=== PATIENT | male | born 1955 | race Caucasian/White ===

== ENCOUNTER 2016-12-05 08:22 | Inpatient (IN) | payer BC ==
[2016-12-05] MEDS ORDERED: SODIUM CHLORIDE 0.9% 500 ML IV STA (08:28)
[2016-12-05] MEDS ORDERED: ALBUTEROL NEBULIZED 15 MG, IPRATROPIUM NEBULIZED 0.5 MG INHALATION ONE ×2 (08:29)
[2016-12-05] MEDS ORDERED: LORazepam 2 MG/ML SYRINGE IV STA (08:29)
--- NOTE | 2016-12-05 08:32 | ED ---
General Adult HPI - General Stated complaint: EVIE Time Seen by Provider: 12/05/16 08:22 Source: RN notes reviewed - History of Present Illness Initial comments: This is a 61-year-old male who presents emergency department with past history significant for COPD per patient states she continues to smoke. Patient states that last week his breathing is become progressively worse. Patient states she' s also coughing and coughing up a lot of sputum. Patient denies any chest pain or palpitations per patient denies a fever chills. Patient denies any calf pain or leg swelling. Patient denies any abdominal pain patient denies nausea vomiting diarrhea. Patient denies headache patient denies numbness weakness. Patient denies lightheadedness dizziness or near syncopal episode. - Related Data Allergies Allergy/AdvReac Type Severity Reaction Status Date / Time naproxen Allergy Itching Verified 12/05/16 09:01 Penicillins Allergy Unknown Verified 12/05/16 09:01 Childhood Review of Systems ROS Statement: Those systems with pertinent positive or pertinent negative responses have been documented in the HPI. ROS Other: All systems not noted in ROS Statement are negative. General Exam - General Exam Comments Initial Comments: GENERAL: Patient is well-developed and well-nourished. Patient is nontoxic and well- hydrated and is in moderate distress. ENT: Neck is soft and supple. No significant lymphadenopathy is noted. Oropharynx is clear. Moist mucous membranes. Neck has full range of motion without eliciting any pain. EYES: The sclera were anicteric and conjunctiva were pink and moist. Extraocular movements were intact and pupils were equal round and reactive to light. Eyelids were unremarkable. PULMONARY: Patient has diffuse expiratory wheezing. Patient is using accessory muscles at this time. CARDIOVASCULAR: There is a regular rate and rhythm without any murmurs gallops or rubs. ABDOMEN: Soft and nontender with normal bowel sounds. No palpable organomegaly was noted. There is no palpable pulsatile mass. SKIN: Skin is clear with no lesions or rashes and otherwise unremarkable. NEUROLOGIC: Patient is alert and oriented x3. Cranial nerves II through XII are grossly intact. Motor and sensory are also intact. Normal speech, volume and content. Symmetrical smile. MUSCULOSKELETAL: Normal extremities with adequate strength and full range of motion. No lower extremity swelling or edema. No calf tenderness. LYMPHATICS: No significant lymphadenopathy is noted PSYCHIATRIC: Normal psychiatric evaluation. Normal interpersonal interactions appears functionally intact in deals appropriately with others. No signs of depression. No signs of anxiety. Course Vital Signs 12/05/16 12/05/16 12/05/16 08:25 08:44 08:59 Temperature 98.1 F Pulse Rate 111 H 114 H 116 H Respiratory 40 H Rate Blood Pressure 192/112 O2 Sat by Pulse 98 Oximetry 12/05/16 12/05/16 12/05/16 09:20 09:53 10:00 Temperature Pulse Rate 119 H 120 H 113 H Respiratory 35 H 32 H Rate Blood Pressure 154/90 149/70 O2 Sat by Pulse 97 98 Oximetry Medical Decision Making - Medical Decision Making Patient was immediately placed on BiPAP. I started today continuous albuterol treatment 15 mg with 0.5 of Atrovent. EKG showed sinus tachycardia at 108 bpm MD interval 130 QRS is 82 QT intervals 336 QTC is 450. Patient's EKG shows no ST segment elevation or depression or T wave abnormalities are noted. Chest x-ray shows no acute abnormality Patient slowly improved though he continued to wheeze he was much more comfortable and not using his accessory muscles anymore. I spoke with Dr. Keegan Allison admitted the patient I wrote admitting orders. - Lab Data Result diagrams: 12/05/16 08:40 12/05/16 08:40 Lab Results 12/05/16 12/05/16 12/05/16 Range/Units 08:40 08:40 08:40 WBC 7.4 (3.8-10.6) k/uL RBC 5.43 (4.30-5.90) m/uL Hgb 17.2 (13.0-17.5) gm/dL Hct 48.6 (39.0-53.0) % MCV 89.4 (80.0-100.0) fL MCH 31.6 (25.0-35.0) pg MCHC 35.4 (31.0-37.0) g/dL RDW 12.8 (11.5-15.5) % Plt Count 127 L (150-450) k/uL Neutrophils % 48 % Lymphocytes % 37 % Monocytes % 10 % Eosinophils % 0 % Basophils % 1 % Neutrophils # 3.5 (1.3-7.7) k/uL Lymphocytes # 2.8 (1.0-4.8) k/uL Monocytes # 0.8 (0-1.0) k/uL Eosinophils # 0.0 (0-0.7) k/uL Basophils # 0.0 (0-0.2) k/uL PT (9.0-12.0) sec INR (<1.1) APTT (22.0-30.0) sec Sample Site ABG pH (7.35-7.45) ABG pCO2 (35-45) mmHg ABG pO2 (83-108) mmHg ABG HCO3 (21-25) mmol/L ABG Total CO2 (19-24) mmol/L ABG O2 Saturation (94-97) % ABG Base Excess mmol/L FiO2 % Sodium (137-145) mmol/L Potassium (3.5-5.1) mmol/L Chloride (98-107) mmol/L Carbon Dioxide (22-30) mmol/L Anion Gap mmol/L BUN (9-20) mg/dL Creatinine (0.66-1.25) mg/dL Est GFR (MDRD) Af Amer (>60 ml/min/1.73 sqM) Est GFR (MDRD) Non-Af (>60 ml/min/1.73 sqM) Glucose (74-99) mg/dL Plasma Lactic Acid Jeramy 0.8 (0.7-2.0) mmol/L Calcium (8.4-10.2) mg/dL Magnesium (1.6-2.3) mg/dL Total Bilirubin (0.2-1.3) mg/dL AST (17-59) U/L ALT (21-72) U/L Alkaline Phosphatase (38-126) U/L Total Creatine Kinase 191 H (55-170) U/L CK-MB (CK-2) 6.7 H* (0.0-2.4) ng/mL CK-MB (CK-2) Rel Index 3.5 Troponin I <0.012 (0.000-0.034) ng/mL Total Protein (6.3-8.2) g/dL Albumin (3.5-5.0) g/dL 12/05/16 12/05/16 12/05/16 Range/Units 08:40 08:40 10:47 WBC (3.8-10.6) k/uL RBC (4.30-5.90) m/uL Hgb (13.0-17.5) gm/dL Hct (39.0-53.0) % MCV (80.0-100.0) fL MCH (25.0-35.0) pg MCHC (31.0-37.0) g/dL RDW (11.5-15.5) % Plt Count (150-450) k/uL Neutrophils % % Lymphocytes % % Monocytes % % Eosinophils % % Basophils % % Neutrophils # (1.3-7.7) k/uL Lymphocytes # (1.0-4.8) k/uL Monocytes # (0-1.0) k/uL Eosinophils # (0-0.7) k/uL Basophils # (0-0.2) k/uL PT 10.2 (9.0-12.0) sec INR 1.0 (<1.1) APTT 26.2 (22.0-30.0) sec Sample Site rrad ABG pH 7.27 L (7.35-7.45) ABG pCO2 66 H (35-45) mmHg ABG pO2 147 H (83-108) mmHg ABG HCO3 29 H (21-25) mmol/L ABG Total CO2 31 H (19-24) mmol/L ABG O2 Saturation 99.0 H (94-97) % ABG Base Excess 2.9 mmol/L FiO2 50 % Sodium 138 (137-145) mmol/L Potassium 4.5 (3.5-5.1) mmol/L Chloride 97 L (98-107) mmol/L Carbon Dioxide 32 H (22-30) mmol/L Anion Gap 9 mmol/L BUN 13 (9-20) mg/dL Creatinine 0.60 L (0.66-1.25) mg/dL Est GFR (MDRD) Af Amer >60 (>60 ml/min/1.73 sqM) Est GFR (MDRD) Non-Af >60 (>60 ml/min/1.73 sqM) Glucose 127 H (74-99) mg/dL Plasma Lactic Acid Jeramy (0.7-2.0) mmol/L Calcium 8.4 (8.4-10.2) mg/dL Magnesium 1.9 (1.6-2.3) mg/dL Total Bilirubin 0.5 (0.2-1.3) mg/dL AST 46 (17-59) U/L ALT 53 (21-72) U/L Alkaline Phosphatase 63 (38-126) U/L Total Creatine Kinase (55-170) U/L CK-MB (CK-2) (0.0-2.4) ng/mL CK-MB (CK-2) Rel Index Troponin I (0.000-0.034) ng/mL Total Protein 6.9 (6.3-8.2) g/dL Albumin 4.2 (3.5-5.0) g/dL Critical Care Time Critical Care Time: Yes Total Critical Care Time: 45 Disposition Clinical Impression: Acute exacerbation of chronic obstructive airways disease Disposition: ADMITTED IP TO THIS HOSP Referrals: Khoi Alejo DO [Primary Care Provider] - 1-2 days Time of Disposition: 11:44
[2016-12-05 09:02] LABS: ALT 53 U/L (21-72); AST 46 U/L (17-59); Alkaline Phosphatase 63 U/L (38-126); Anion Gap 9 mmol/L; Blood Urea Nitrogen 13 mg/dL (9-20); Calcium 8.4 mg/dL (8.4-10.2); Carbon Dioxide 32 mmol/L (22-30); Chloride 97 mmol/L (98-107); Glucose 127 mg/dL (74-99); Magnesium 1.9 mg/dL (1.6-2.3); Non-African American GFR(MDRD) >60 (>60 ml/min/1.73 sqM); Partial Thromboplastin Time 26.2 sec (22.0-30.0); Potassium 4.5 mmol/L (3.5-5.1); Prothrombin Time 10.2 sec (9.0-12.0); Sodium 138 mmol/L (137-145); Total Bilirubin 0.5 mg/dL (0.2-1.3); Total Protein 6.9 g/dL (6.3-8.2)
[2016-12-05 09:14] LABS: Basophils % (A) 1 %; CH 30.7; CHCM 34.5; Eosinophils % (A) 0 %; HCT 48.6 % (39.0-53.0); HDW 2.74; HGB 17.2 gm/dL (13.0-17.5); Luc # (Auto) 0.33; Luc % (Auto) 5; Lymphocytes # (A) 2.8 k/uL (1.0-4.8); Lymphocytes % (A) 37 %; MCH 31.6 pg (25.0-35.0); MCHC 35.4 g/dL (31.0-37.0); MCV 89.4 fL (80.0-100.0); Mean Platelet Volume 7.4; Monocytes # (A) 0.8 k/uL (0-1.0); Monocytes % (A) 10 %; Neutrophils # (A) 3.5 k/uL (1.3-7.7); Neutrophils % (A) 48 %; RBC 5.43 m/uL (4.30-5.90); RDW 12.8 % (11.5-15.5); WBC 7.4 k/uL (3.8-10.6); WBC (Perox) 6.89
[2016-12-05 09:19] LABS: Creatine Kinase 191 U/L (55-170)
--- NOTE | 2016-12-05 09:30 | XR ---
EXAMINATION TYPE: XR chest 1V DATE OF EXAM: 12/05/2016 COMPARISON: NONE INDICATION: Difficulty breathing TECHNIQUE: Single frontal view of the chest is obtained. FINDINGS: The heart size is normal. The pulmonary vasculature is normal. The lungs are clear. Minimal fluid at the right costophrenic angles is not excluded. Artifact overlies the right upper constantin st. IMPRESSION: 1. No acute pulmonary process.
[2016-12-05 09:31] LABS: Troponin I <0.012 ng/mL (0.000-0.034)
[2016-12-05 09:33] LABS: Creatine Kinase MB 6.7 ng/mL (0.0-2.4)
[2016-12-05 11:07] LABS: ABG Base Excess 2.9 mmol/L; ABG HCO3 29 mmol/L (21-25); ABG PCO2 66 mmHg (35-45); ABG PH 7.27 (7.35-7.45); ABG PO2 147 mmHg (83-108); ABG TCO2 31 mmol/L (19-24)
[2016-12-05] MEDS: methylPREDNISolone SOD SUCCI 125 MG/2 ML VIAL IV SCH ×3 (13:30→23:05)
--- NOTE | 2016-12-05 14:51 | P.CNPUL ---
History of Present Illness Consult date: 12/05/16 Reason for consult: dyspnea, COPD History of present illness: 61-year-old male patient with known history of COPD, a chronic smoker, presented with progressive worsening shortness of breath. He had also increased cough and sputum production. Denies having any chest pain. No fever chills or night sweats pain no pleurisy. No hemoptysis. No leg swelling. No other complaints otherwise. Chest x-ray was consistent with COPD without any evidence of an acute pneumonia or pulmonary infiltration. The patient has been a chronic smoker and used to smoke up to 3 packs of cigarettes a day. Recently smoking 1-2 pack of cigarettes a day. In terms of his COPD, he has had exacerbations mostly [facility] The patient has required on and off antibiotics and steroids. He has home oxygen which she doesn't use on a regular basis. He also has albuterol rescue inhaler and a albuterol nebulizer at home. No previous hospitalization for COPD exacerbation. No previous bouts of respiratory failure. Mother the patient was quite short of breath and bronchospastic at a time of his evaluation. Blood gases was done and showed an acute respiratory acidosis with a pH of 7.27 and a pCO2 of 66 and pO2 of 147 this was on FiO2 of 50%. Following that the patient was placed on a BiPAP and currently is on a pressure of 12/5 with an FiO2 of 40%. He is tolerating the BiPAP fairly well without any major difficulties. He seems to be more comfortable. As mentioned earlier , no chest pain no swelling in lower extremities. 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 No DVT. No pulmonary embolism. Review of Systems 12 point review of system was done and the positive findings are almost above in history of present illness All systems: negative Constitutional: Denies chills, Denies fever Eyes: denies blurred vision, denies pain Ears, nose, mouth and throat: Denies headache, Denies sore throat Cardiovascular: Denies chest pain, Denies shortness of breath Respiratory: Denies cough Gastrointestinal: Denies abdominal pain, Denies diarrhea, Denies nausea, Denies vomiting Musculoskeletal: Denies myalgias Integumentary: Denies pruritus, Denies rash Neurological: Denies numbness, Denies weakness Psychiatric: Denies anxiety, Denies depression Endocrine: Denies fatigue, Denies weight change Past Medical History Past Medical History: COPD, Hyperlipidemia, Hypertension, Pneumonia History of Any Multi-Drug Resistant Organisms: None Reported Past Surgical History: Unable to Obtain Past Psychological History: No Psychological Hx Reported Smoking Status: Current every day smoker Past Alcohol Use History: None Reported Past Drug Use History: None Reported Medications and Allergies Home Medications Medication Instructions Recorded Confirmed Type Albuterol Inhaler [Ventolin Hfa 1 puff INHALATION RT-Q6H PRN 12/05/16 12/05/16 History Inhaler] Atorvastatin [Lipitor] 40 mg PO DAILY 12/05/16 12/05/16 History [place]-3 Fatty Acids/Fish Oil [Fish 1 cap PO DAILY 12/05/16 12/05/16 History Oil 1,000 mg Softgel] Allergies Allergy/AdvReac Type Severity Reaction Status Date / Time naproxen Allergy Itching Verified 12/05/16 11:58 Penicillins Allergy Unknown Verified 12/05/16 11:58 Childhood Physical Exam Vitals: Vital Signs Temp Pulse Resp BP Pulse Ox 12/05/16 12:10 98 F 105 H 30 H 135/79 98 12/05/16 10:00 113 H 32 H 149/70 98 12/05/16 09:53 120 H 12/05/16 09:20 119 H 35 H 154/90 97 12/05/16 08:59 116 H 12/05/16 08:44 114 H 12/05/16 08:25 98.1 F 111 H 40 H 192/112 98 Intake and Output 12/04/16 12/05/16 12/05/16 22:59 06:59 14:59 Other: Weight 77.111 kg Patient Weight 12/06/16 06:59 Weight 77.111 kg The patient appeared well nourished and normally developed. Vital signs as documented. Head exam is unremarkable. No scleral icterus or corneal arcus noted. Neck is without jugular venous distension, thyromegaly, or carotid bruits. Carotid upstrokes are brisk bilaterally. Lungs diminished breath sounds along with scattered expiratory wheezes throughout the lung kelley bilaterally. Cardiac exam reveals the PMI to be normally sized and situated. Rhythm is regular. First and second heart sounds normal. No murmurs, rubs or gallops. Abdominal exam reveals normal bowel sounds, no masses, no organomegaly and no aortic enlargement. Extremities are nonedematous and both femoral and pedal pulses are normal. Results - Laboratory Findings CBC and BMP: 12/05/16 08:40 12/05/16 08:40 ABG ABG pH 7.27 (7.35-7.45) L 12/05/16 10:47 ABG pCO2 66 mmHg (35-45) H 12/05/16 10:47 ABG pO2 147 mmHg (83-108) H 12/05/16 10:47 ABG O2 Saturation 99.0 % (94-97) H 12/05/16 10:47 PT/INR, D-dimer PT 10.2 sec (9.0-12.0) 12/05/16 08:40 INR 1.0 (<1.1) 12/05/16 08:40 Abnormal lab findings: Abnormal Labs 12/05/16 12/05/16 12/05/16 08:40 08:40 08:40 Plt Count 127 L ABG pH ABG pCO2 ABG pO2 ABG HCO3 ABG Total CO2 ABG O2 Saturation Chloride 97 L Carbon Dioxide 32 H Creatinine 0.60 L Glucose 127 H Total Creatine Kinase 191 H CK-MB (CK-2) 6.7 H* 12/05/16 10:47 Plt Count ABG pH 7.27 L ABG pCO2 66 H ABG pO2 147 H ABG HCO3 29 H ABG Total CO2 31 H ABG O2 Saturation 99.0 H Chloride Carbon Dioxide Creatinine Glucose Total Creatine Kinase CK-MB (CK-2) - Diagnostic Findings Chest x-ray: image reviewed Assessment and Plan Plan: Assessment 1 acute COPD exacerbation with secondary shortness of breath. Chest x-ray still with acute pulmonary infiltration/pneumonia. 2 acute respiratory acidosis , currently on BiPAP for respiratory support. Patient is able to tolerate a full face BiPAP without any major difficulties. IPAP is set at a pressure of 12/5 with an FiO2 of 40%. 3 shortness of breath secondary to above 4 smoker 5 hyperlipidemia Plan We'll utilize DuoNevikash about treatments around the clock. IV Solu Medrol 60 mg every 6 hours. Pulmicort and Brovana neb last 2 minutes twice a day.. Empiric antibiotic coverage with Zithromax. Heparin subcu for DT prophylaxis. Smoking cessation counseling. Outpatient pulmonary function test. We'll continue BiPAP throughout this afternoon and in the evening. Repeat chest x-ray in the morning. We'll continue to follow.
[2016-12-05] MEDS: ALPRAZolam 0.25 MG TAB PO PRN (15:07)
[2016-12-05] MEDS: HEPARIN SODIUM,PORCINE 5,000 UNIT/ML 1 ML VIAL SQ SCH ×2 (15:07→21:19)
[2016-12-05] MEDS: AZITHROMYCIN 250 MG TAB PO SCH (15:09)
[2016-12-05 15:53] VITALS: BMI 23.0
[2016-12-05] MEDS: IPRATROPIUM-ALBUTEROL 3 ML NEB INHALATION PRN ×2 (16:21→21:04)
[2016-12-05 17:14] LABS: Glucose,Whole Blood 144 mg/dL (75-99)
[2016-12-05] MEDS: INSULIN LISPRO (humaLOG) 300 UNIT/3 ML VIAL SQ SCH ×2 (17:26→21:19)
[2016-12-05] MEDS: FORMOTEROL FUMARATE 20 MCG/2 ML NEBU INHALATION SCH (21:04)
[2016-12-05] MEDS: BUDESONIDE 0.5 MG/2 ML NEBU INHALATION SCH (21:04)
[2016-12-05 21:08] LABS: Glucose,Whole Blood 199 mg/dL (75-99)
[2016-12-06 06:12] LABS: Glucose,Whole Blood 127 mg/dL (75-99)
[2016-12-06] MEDS: methylPREDNISolone SOD SUCCI 125 MG/2 ML VIAL IV SCH ×4 (06:28→23:24)
[2016-12-06] MEDS: INSULIN LISPRO (humaLOG) 300 UNIT/3 ML VIAL SQ SCH ×4 (06:31→21:46)
[2016-12-06 07:20] LABS: Basophils % (A) 0 %; CH 30.9; CHCM 34.1; Eosinophils % (A) 0 %; HCT 47.6 % (39.0-53.0); HDW 2.66; HGB 16.3 gm/dL (13.0-17.5); Luc # (Auto) 0.19; Luc % (Auto) 3; Lymphocytes # (A) 2.9 k/uL (1.0-4.8); Lymphocytes % (A) 42 %; MCH 31.2 pg (25.0-35.0); MCHC 34.3 g/dL (31.0-37.0); Mean Platelet Volume 7.8; Monocytes # (A) 0.5 k/uL (0-1.0); Monocytes % (A) 7 %; Neutrophils # (A) 3.3 k/uL (1.3-7.7); Neutrophils % (A) 48 %; RBC 5.23 m/uL (4.30-5.90); WBC 6.9 k/uL (3.8-10.6); WBC (Perox) 6.33
[2016-12-06 07:41] LABS: Anion Gap 7 mmol/L; Blood Urea Nitrogen 16 mg/dL (9-20); Calcium 8.8 mg/dL (8.4-10.2); Carbon Dioxide 33 mmol/L (22-30); Chloride 96 mmol/L (98-107); Glucose 130 mg/dL (74-99); Non-African American GFR(MDRD) >60 (>60 ml/min/1.73 sqM); Potassium 4.9 mmol/L (3.5-5.1); Sodium 136 mmol/L (137-145)
--- NOTE | 2016-12-06 07:48 | XR ---
EXAMINATION TYPE: XR chest 1V DATE OF EXAM: 12/06/2016 COMPARISON: 12/05/2016 INDICATION: COPD TECHNIQUE: Single frontal view of the chest is obtained. FINDINGS: The heart size is normal. The pulmonary vasculature is normal. The lungs are clear. IMPRESSION: 1. No acute pulmonary process.
[2016-12-06] MEDS: ATORVASTATIN 40 MG TAB PO SCH (08:10)
[2016-12-06] MEDS: HEPARIN SODIUM,PORCINE 5,000 UNIT/ML 1 ML VIAL SQ SCH ×2 (08:10→21:47)
[2016-12-06] MEDS: AZITHROMYCIN 250 MG TAB PO SCH (08:10)
[2016-12-06] MEDS: ALPRAZolam 0.25 MG TAB PO PRN (08:39)
[2016-12-06] MEDS: FORMOTEROL FUMARATE 20 MCG/2 ML NEBU INHALATION SCH ×2 (08:49→20:20)
[2016-12-06] MEDS: BUDESONIDE 0.5 MG/2 ML NEBU INHALATION SCH ×2 (08:49→20:20)
[2016-12-06] MEDS: IPRATROPIUM-ALBUTEROL 3 ML NEB INHALATION PRN ×3 (08:49→20:20)
[2016-12-06] MEDS ORDERED: NON-FORMULARY DRUG (Omega-3 Fatty Acids/Fish Oil [Fish Oil 1,000 Mg Softgel] 1 CAP) PO SCH (09:00)
[2016-12-06 09:07] LABS: ABG PCO2 55 mmHg (35-45); ABG PO2 62 mmHg (83-108)
[2016-12-06 09:09] LABS: ABG Base Excess 7.1 mmol/L; ABG HCO3 33 mmol/L (21-25)
[2016-12-06 12:25] LABS: Glucose,Whole Blood 130 mg/dL (75-99)
--- NOTE | 2016-12-06 13:39 | P.PN ---
Subjective 61-year-old male patient with known history of COPD, a chronic smoker, presented with progressive worsening shortness of breath. He had also increased cough and sputum production. Denies having any chest pain. No fever chills or night sweats pain no pleurisy. No hemoptysis. No leg swelling. No other complaints otherwise. Chest x-ray was consistent with COPD without any evidence of an acute pneumonia or pulmonary infiltration. The patient has been a chronic smoker and used to smoke up to 3 packs of cigarettes a day. Recently smoking 1-2 pack of cigarettes a day. In terms of his COPD, he has had exacerbations mostly treated on outpatient [facility]. The patient has required on and off antibiotics and steroids. He has home oxygen which she doesn't use on a regular basis. He also has albuterol rescue inhaler and a albuterol nebulizer at home. No previous hospitalization for COPD exacerbation. No previous bouts of respiratory failure. Mother the patient was quite short of breath and bronchospastic at a time of his evaluation. Blood gases was done and showed an acute respiratory acidosis with a pH of 7.27 and a pCO2 of 66 and pO2 of 147 this was on FiO2 of 50%. Following that the patient was placed on a BiPAP and currently is on a pressure of 12/5 with an FiO2 of 40%. He is tolerating the BiPAP fairly well without any major difficulties. He seems to be more comfortable. As mentioned earlier , no chest pain no swelling in lower extremities. 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 No DVT. No pulmonary embolism. On 2016, the patient is feeling better. He is less short of breath. A repeat blood gases was done today and it showed improvement and acid base status. The patient has a compensated respiratory acidosis with improvement in the pH. Despite all this, he remains short of breath bronchospastic and wheezy. He is able to speak of. This is without major difficulties. No chest pain. Occasional cough. He is unable to produce much of sputum production. On and off is still using the BiPAP throughout the day. Chest x-ray is free of any acute pulmonary infiltrates. The patient is on DuoNeb neb treatments around the clock, Pulmicort Respules, Perforomist neb last treatments, IV Solu- Medrol. Empiric antibiotic coverage with Zithromax. Objective - Vital Signs Vital signs: Vital Signs Temp 97.8 F 12/06/16 12:00 Pulse 92 12/06/16 13:03 Resp 20 12/06/16 12:00 BP 138/85 12/06/16 12:00 Pulse Ox 94 L 12/06/16 12:00 Intake & Output 12/05/16 12/06/16 12/06/16 18:59 06:59 18:59 Intake Total 120 100 120 Output Total 100 200 Balance 120 0 -80 Weight 77 kg 72.5 kg Intake: Oral 120 100 120 Output: Urine 100 200 Other: Voiding Method Urinal Urinal Urinal # Voids 0 1 2 - Exam The patient appeared well nourished and normally developed. Vital signs as documented. Head exam is unremarkable. No scleral icterus or corneal arcus noted. Neck is without jugular venous distension, thyromegaly, or carotid bruits. Carotid upstrokes are brisk bilaterally. Lungs diminished breath sounds along with scattered expiratory wheezes throughout the lung kelley bilaterally. Cardiac exam reveals the PMI to be normally sized and situated. Rhythm is regular. First and second heart sounds normal. No murmurs, rubs or gallops. Abdominal exam reveals normal bowel sounds, no masses, no organomegaly and no aortic enlargement. Extremities are nonedematous and both femoral and pedal pulses are normal. - Labs CBC & Chem 7: 12/06/16 06:38 12/06/16 06:38 Labs: Abnormal Lab Results - Last 24 Hours (Table) 12/05/16 12/05/16 12/06/16 Range/Units 17:08 21:07 06:11 Plt Count (150-450) k/uL ABG pCO2 (35-45) mmHg ABG pO2 (83-108) mmHg ABG HCO3 (21-25) mmol/L Sodium (137-145) mmol/L Chloride (98-107) mmol/L Carbon Dioxide (22-30) mmol/L Creatinine (0.66-1.25) mg/dL Glucose (74-99) mg/dL POC Glucose (mg/dL) 144 H 199 H 127 H (75-99) mg/dL 12/06/16 12/06/16 12/06/16 Range/Units 06:38 06:38 08:32 Plt Count 143 L (150-450) k/uL ABG pCO2 55 H (35-45) mmHg ABG pO2 62 L (83-108) mmHg ABG HCO3 33 H (21-25) mmol/L Sodium 136 L (137-145) mmol/L Chloride 96 L (98-107) mmol/L Carbon Dioxide 33 H (22-30) mmol/L Creatinine 0.61 L (0.66-1.25) mg/dL Glucose 130 H (74-99) mg/dL POC Glucose (mg/dL) (75-99) mg/dL 12/06/16 Range/Units 12:00 Plt Count (150-450) k/uL ABG pCO2 (35-45) mmHg ABG pO2 (83-108) mmHg ABG HCO3 (21-25) mmol/L Sodium (137-145) mmol/L Chloride (98-107) mmol/L Carbon Dioxide (22-30) mmol/L Creatinine (0.66-1.25) mg/dL Glucose (74-99) mg/dL POC Glucose (mg/dL) 130 H (75-99) mg/dL Microbiology - Last 24 Hours (Table) 12/05/16 08:50 Blood Culture - Preliminary Blood No Growth after 24 hours Assessment and Plan Plan: Assessment 1 acute COPD exacerbation with secondary shortness of breath. The patient is gradually improving. On today's evaluation is improved compared to yesterday. Nevertheless history quite symptomatically he needs ongoing treatment for his acute COPD exacerbation.. 2 acute respiratory acidosis , currently on BiPAP for respiratory support. Acute respiratory acidosis is resolved. There is a component of chronic hypercapnic respiratory failure. 3 shortness of breath secondary to above 4 smoker 5 hyperlipidemia Plan Reviewed the chest x-ray from today. Revealed the blood gases from today. The patient is improving. We'll continue same treatment with a combination of bronchodilators, steroids and antibiotics. BiPAP will be used on and off during the day for respiratory support. We'll monitor this patient very closely on the medical floor. We'll continue to follow make further recommendations based on his progress. Smoking cessation counseling was again done emphasized.
[2016-12-06 16:42] LABS: Glucose,Whole Blood 154 mg/dL (75-99)
[2016-12-06 21:03] LABS: Glucose,Whole Blood 140 mg/dL (75-99)
[2016-12-07 06:27] LABS: Glucose,Whole Blood 143 mg/dL (75-99)
[2016-12-07] MEDS: INSULIN LISPRO (humaLOG) 300 UNIT/3 ML VIAL SQ SCH ×4 (06:30→20:53)
[2016-12-07] MEDS: methylPREDNISolone SOD SUCCI 125 MG/2 ML VIAL IV SCH ×4 (06:31→23:37)
[2016-12-07 06:42] LABS: Basophils % (A) 0 %; CH 31.5; CHCM 34.5; Eosinophils % (A) 0 %; HCT 49.8 % (39.0-53.0); HDW 2.57; Luc # (Auto) 0.21; Luc % (Auto) 2; Lymphocytes # (A) 3.6 k/uL (1.0-4.8); Lymphocytes % (A) 29 %; MCH 31.2 pg (25.0-35.0); MCHC 34.1 g/dL (31.0-37.0); MCV 91.6 fL (80.0-100.0); Mean Platelet Volume 7.1; Monocytes # (A) 0.8 k/uL (0-1.0); Monocytes % (A) 6 %; Neutrophils # (A) 7.8 k/uL (1.3-7.7); Neutrophils % (A) 63 %; RBC 5.44 m/uL (4.30-5.90); WBC 12.5 k/uL (3.8-10.6); WBC (Perox) 11.87
[2016-12-07 06:55] LABS: Anion Gap 6 mmol/L; Blood Urea Nitrogen 17 mg/dL (9-20); Calcium 9.1 mg/dL (8.4-10.2); Carbon Dioxide 36 mmol/L (22-30); Chloride 96 mmol/L (98-107); Glucose 141 mg/dL (74-99); Non-African American GFR(MDRD) >60 (>60 ml/min/1.73 sqM); Potassium 5.3 mmol/L (3.5-5.1); Sodium 138 mmol/L (137-145)
[2016-12-07] MEDS: BUDESONIDE 0.5 MG/2 ML NEBU INHALATION SCH ×2 (07:33→19:34)
[2016-12-07] MEDS: IPRATROPIUM-ALBUTEROL 3 ML NEB INHALATION PRN ×4 (07:33→19:34)
[2016-12-07] MEDS: FORMOTEROL FUMARATE 20 MCG/2 ML NEBU INHALATION SCH ×2 (07:33→19:34)
[2016-12-07] MEDS: HEPARIN SODIUM,PORCINE 5,000 UNIT/ML 1 ML VIAL SQ SCH ×2 (08:08→20:53)
[2016-12-07] MEDS: ALPRAZolam 0.25 MG TAB PO PRN (08:08)
[2016-12-07] MEDS: AZITHROMYCIN 250 MG TAB PO SCH (08:08)
[2016-12-07] MEDS: ATORVASTATIN 40 MG TAB PO SCH (08:08)
[2016-12-07 11:53] LABS: Glucose,Whole Blood 140 mg/dL (75-99)
--- NOTE | 2016-12-07 13:11 | P.PN ---
Subjective Principal diagnosis: Acute exacerbation of COPD 61-year-old male patient with known history of COPD, a chronic smoker, presented with progressive worsening shortness of breath. He had also increased cough and sputum production. Denies having any chest pain. No fever chills or night sweats pain no pleurisy. No hemoptysis. No leg swelling. No other complaints otherwise. Chest x-ray was consistent with COPD without any evidence of an acute pneumonia or pulmonary infiltration. The patient has been a chronic smoker and used to smoke up to 3 packs of cigarettes a day. Recently smoking 1-2 pack of cigarettes a day. In terms of his COPD, he has had exacerbations mostly [facility] [place] The patient has required on and off antibiotics and steroids. He has home oxygen which she doesn't use on a regular basis. He also has albuterol rescue inhaler and a albuterol nebulizer at home. No previous hospitalization for COPD exacerbation. No previous bouts of respiratory failure. Mother the patient was quite short of breath and bronchospastic at a time of his evaluation. Blood gases was done and showed an acute respiratory acidosis with a pH of 7.27 and a pCO2 of 66 and pO2 of 147 this was on FiO2 of 50%. Following that the patient was placed on a BiPAP and currently is on a pressure of 12/5 with an FiO2 of 40%. He is tolerating the BiPAP fairly well without any major difficulties. He seems to be more comfortable. As mentioned earlier , no chest pain no swelling in lower extremities. 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 No DVT. No pulmonary embolism. On 2016, the patient is feeling better. He is less short of breath. A repeat blood gases was done today and it showed improvement and acid base status. The patient has a compensated respiratory acidosis with improvement in the pH. Despite all this, he remains short of breath bronchospastic and wheezy. He is able to speak of. This is without major difficulties. No chest pain. Occasional cough. He is unable to produce much of sputum production. On and off is still using the BiPAP throughout the day. Chest x-ray is free of any acute pulmonary infiltrates. The patient is on DuoNeb neb treatments around the clock, Pulmicort Respules, Perforomist neb last treatments, IV Solu- Medrol. Empiric antibiotic coverage with Zithromax. Reevaluated today on 12/07/2016, patient seems to be doing better, breathing easier, continues to use his oxygen, and I believe the patient has already home O2 but he is not compliant with it. Patient is not using BiPAP anymore, feels much better overall. Remains on multiple bronchodilators including DuoNeb, Pulmicort, Perforomist, and IV Solu-Medrol as well as Zithromax. Objective - Vital Signs Vital signs: Vital Signs Temp 97.1 F L 12/07/16 07:55 Pulse 84 12/07/16 11:39 Resp 20 12/07/16 07:55 BP 158/74 12/07/16 07:55 Pulse Ox 97 12/07/16 07:55 Intake & Output 12/06/16 12/07/16 12/07/16 18:59 06:59 18:59 Intake Total 360 Output Total 200 Balance 160 Weight 72.5 kg Intake: Oral 360 Output: Urine 200 Other: Voiding Method Urinal Urinal # Voids 1 1 - Exam Physical Exam: Revealed a 61-year-old in no distress. HEENT:[Neck is supple.] [No neck masses.] [No thyromegaly.] [No JVD.] Chest: [Diminished breath sound bilaterally, some wheezing on forced expiratory maneuver only.] Cardiac Exam: [Normal S1 and S2, no S3 gallop, no murmur.] Abdomen: [Soft, nontender, no megaly, no rebound, no guarding, normal bowel sounds.] Extremities: [No clubbing, no edema, no cyanosis.] Neurological Exam: [No focal neurologic deficit.] - Labs CBC & Chem 7: 12/07/16 06:23 12/07/16 06:23 Labs: Abnormal Lab Results - Last 24 Hours (Table) 12/06/16 12/06/16 12/07/16 Range/Units 16:38 20:56 06:14 WBC (3.8-10.6) k/uL Neutrophils # (1.3-7.7) k/uL Potassium (3.5-5.1) mmol/L Chloride (98-107) mmol/L Carbon Dioxide (22-30) mmol/L Glucose (74-99) mg/dL POC Glucose (mg/dL) 154 H 140 H 143 H (75-99) mg/dL 12/07/16 12/07/16 12/07/16 Range/Units 06:23 06:23 11:41 WBC 12.5 H (3.8-10.6) k/uL Neutrophils # 7.8 H (1.3-7.7) k/uL Potassium 5.3 H (3.5-5.1) mmol/L Chloride 96 L (98-107) mmol/L Carbon Dioxide 36 H (22-30) mmol/L Glucose 141 H (74-99) mg/dL POC Glucose (mg/dL) 140 H (75-99) mg/dL Microbiology - Last 24 Hours (Table) 12/05/16 08:50 Blood Culture - Preliminary Blood No Growth after 48 hours Assessment and Plan Plan: 1 acute COPD exacerbation , patient seems to be improving with the present course of antibiotics, bronchodilators, steroids, and oxygen. 2 acute respiratory acidosis , currently on BiPAP for respiratory support. Acute respiratory acidosis is resolved. There is a component of chronic hypercapnic respiratory failure. 3 shortness of breath secondary to above 4 smoker, patient was counseled regarding smoking cessation. 5 hyperlipidemia Recommendation: I reviewed his chest x-ray, reviewed his most recent labs and ABG, plan is to continue present treatment, consider discharge planning in the next 24-48 hours. Time with Patient: Less than 30
[2016-12-07 16:58] LABS: Glucose,Whole Blood 170 mg/dL (75-99)
[2016-12-07 20:49] LABS: Glucose,Whole Blood 153 mg/dL (75-99)
[2016-12-08 06:09] LABS: Glucose,Whole Blood 140 mg/dL (75-99)
[2016-12-08] MEDS: INSULIN LISPRO (humaLOG) 300 UNIT/3 ML VIAL SQ SCH ×2 (06:43→12:29)
[2016-12-08] MEDS: methylPREDNISolone SOD SUCCI 125 MG/2 ML VIAL IV SCH ×2 (06:44→12:31)
[2016-12-08] MEDS: BUDESONIDE 0.5 MG/2 ML NEBU INHALATION SCH (08:24)
[2016-12-08] MEDS: IPRATROPIUM-ALBUTEROL 3 ML NEB INHALATION PRN ×2 (08:24→13:25)
[2016-12-08] MEDS: FORMOTEROL FUMARATE 20 MCG/2 ML NEBU INHALATION SCH (08:24)
[2016-12-08 09:09] VITALS: RESP 16; TEMP 97.5
[2016-12-08] MEDS: HEPARIN SODIUM,PORCINE 5,000 UNIT/ML 1 ML VIAL SQ SCH (09:10)
[2016-12-08] MEDS: AZITHROMYCIN 250 MG TAB PO SCH (09:10)
[2016-12-08] MEDS: ATORVASTATIN 40 MG TAB PO SCH (09:10)
[2016-12-08] MEDS: ALPRAZolam 0.25 MG TAB PO PRN ×2 (09:12→14:33)
--- NOTE | 2016-12-08 11:23 | P.PN ---
Subjective Principal diagnosis: Acute exacerbation of COPD 61-year-old male patient with known history of COPD, a chronic smoker, presented with progressive worsening shortness of breath. He had also increased cough and sputum production. Denies having any chest pain. No fever chills or night sweats pain no pleurisy. No hemoptysis. No leg swelling. No other complaints otherwise. Chest x-ray was consistent with COPD without any evidence of an acute pneumonia or pulmonary infiltration. The patient has been a chronic smoker and used to smoke up to 3 packs of cigarettes a day. Recently smoking 1-2 pack of cigarettes a day. In terms of his COPD, he has had exacerbations mostly treated [facility] [place]. The patient has required on and off antibiotics and steroids. He has home oxygen which she doesn't use on a regular basis. He also has albuterol rescue inhaler and a albuterol nebulizer at home. No previous hospitalization for COPD exacerbation. No previous bouts of respiratory failure. Mother the patient was quite short of breath and bronchospastic at a time of his evaluation. Blood gases was done and showed an acute respiratory acidosis with a pH of 7.27 and a pCO2 of 66 and pO2 of 147 this was on FiO2 of 50%. Following that the patient was placed on a BiPAP and currently is on a pressure of 12/5 with an FiO2 of 40%. He is tolerating the BiPAP fairly well without any major difficulties. He seems to be more comfortable. As mentioned earlier , no chest pain no swelling in lower extremities. 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 No DVT. No pulmonary embolism. On 2016, the patient is feeling better. He is less short of breath. A repeat blood gases was done today and it showed improvement and acid base status. The patient has a compensated respiratory acidosis with improvement in the pH. Despite all this, he remains short of breath bronchospastic and wheezy. He is able to speak of. This is without major difficulties. No chest pain. Occasional cough. He is unable to produce much of sputum production. On and off is still using the BiPAP throughout the day. Chest x-ray is free of any acute pulmonary infiltrates. The patient is on DuoNeb neb treatments around the clock, Pulmicort Respules, Perforomist neb last treatments, IV Solu- Medrol. Empiric antibiotic coverage with Zithromax. Reevaluated today on 12/07/2016, patient seems to be doing better, breathing easier, continues to use his oxygen, and I believe the patient has already home O2 but he is not compliant with it. Patient is not using BiPAP anymore, feels much better overall. Remains on multiple bronchodilators including DuoNeb, Pulmicort, Perforomist, and IV Solu-Medrol as well as Zithromax. Patient was reevaluated on 12/08/2016, seems to be doing quite well, breathing a lot easier, no cough no wheezing no shortness of breath. Hence the patient could be considered for discharge planning today on prednisone 30 mg tapered down over a period of 2 weeks. Zithromax, DuoNeb updrafts 4 times a day and when necessary, and Symbicort 160/4.52 puffs twice a day. Objective - Vital Signs Vital signs: Vital Signs Temp 97.5 F L 12/08/16 09:08 Pulse 82 12/08/16 09:08 Resp 16 12/08/16 09:08 BP 145/79 12/08/16 09:08 Pulse Ox 96 12/08/16 09:08 Intake & Output 12/07/16 12/08/16 12/08/16 18:59 06:59 18:59 Intake Total 1117 30 Output Total 600 Balance 517 30 Weight 72.2 kg Intake: IV 30 Flush 30 Oral 1117 Output: Urine 600 Other: Voiding Method Urinal Toilet Urinal # Voids 1 3 - Exam Physical Exam: Revealed a 61-year-old in no distress. HEENT:[Neck is supple.] [No neck masses.] [No thyromegaly.] [No JVD.] Chest: [Diminished breath sound bilaterally, no crackles or rhonchi or wheezes Cardiac Exam: [Normal S1 and S2, no S3 gallop, no murmur.] Abdomen: [Soft, nontender, no megaly, no rebound, no guarding, normal bowel sounds.] Extremities: [No clubbing, no edema, no cyanosis.] Neurological Exam: [No focal neurologic deficit.] - Labs CBC & Chem 7: 12/07/16 06:23 12/07/16 06:23 Labs: Abnormal Lab Results - Last 24 Hours (Table) 12/07/16 12/07/16 12/07/16 Range/Units 11:41 16:44 20:46 POC Glucose (mg/dL) 140 H 170 H 153 H (75-99) mg/dL 12/08/16 Range/Units 06:07 POC Glucose (mg/dL) 140 H (75-99) mg/dL Microbiology - Last 24 Hours (Table) 12/05/16 08:50 Blood Culture - Preliminary Blood No Growth after 72 hours Assessment and Plan Plan: 1 acute COPD exacerbation , patient seems to be improving with the present course of antibiotics, bronchodilators, steroids, and oxygen. 2 acute respiratory acidosis , currently on BiPAP for respiratory support. Acute respiratory acidosis is resolved. There is a component of chronic hypercapnic respiratory failure. 3 shortness of breath secondary to above 4 smoker, patient was counseled regarding smoking cessation. 5 hyperlipidemia Recommendation: Cleared for discharge today on DuoNeb, Symbicort, Zithromax, for 5 more days, prednisone burst and taper over 2 weeks starting at 30 mg daily. Follow-up on outpatient basis in our office, patient is to see Dr. Dumont next week. Time with Patient: Less than 30
[2016-12-08 11:33] VITALS: BP 127/68
[2016-12-08 12:14] LABS: Glucose,Whole Blood 159 mg/dL (75-99)
[2016-12-08 13:29] VITALS: PULSE 88
== END 2016-12-08 17:29 | disposition home or self-care (01) | DRG 191 ==
LOC: EC 08:22 → 6SEL 11:44
PROVIDERS: ADMIT Hospitalist; ATTEND Hospitalist
PROC: 5A09457 Assistance with Respiratory Ventilation, 24-96 Consecutive Hours, Continuous Positive Airway Pressure (ICD-10-PCS; principal; 2016-12-05)
DX: J44.1 Chronic obstructive pulmonary disease with (acute) exacerbation (principal); E87.2 Acidosis; J96.12 Chronic respiratory failure with hypercapnia; E78.5 Hyperlipidemia, unspecified; F17.210 Nicotine dependence, cigarettes, uncomplicated; I10 Essential (primary) hypertension; Z79.899 Other long term (current) drug therapy; Z88.6 Allergy status to analgesic agent; Z88.0 Allergy status to penicillin; Z91.19 Patient's noncompliance with other medical treatment and regimen
CPT/HCPCS: 36415; 36600; 71010; 80048; 80053; 82550; 82553; 82805; 83605; 83735; 84484; 85025; 85610; 85730; 87040; 93005; 94640; 94644; 94660; 94760; 96361; 96374; 99285

== ENCOUNTER → 2019-05-20 | Outpatient (CLI) | payer MEDICARE ==
--- NOTE | 2019-05-22 13:13 | CTL ---
EXAMINATION TYPE: CT Low Dose Lung DATE OF EXAM ORDERED: 05/20/2019 HISTORY: Personal history tobacco use/dependence.. Lung cancer screening CT DLP: 77.[address] CTDI: 2.0 mGy Automated exposure control for dose reduction was used. SCREENING VISIT: Initial COMPARISON: None TECHNIQUE: Low dose computed tomography scan was performed through the chest at 1 mm thick sections a nd reconstructed images in the coronal plane at [address] DIAGNOSTIC QUALITY: Satisfactory FINDINGS: LUNG NODULES: None. There is some scarring at the lung apices. There is some mild pneumonitis changes within the lingular base. LUNGS: COPD: Severity: None Fibrosis: Severity: None Lymph nodes: No enlarged lymphadenopathy. Other findings: None RIGHT PLEURAL SPACE: Effusion: None Calcification: None Thickening: None Pneumothorax: None LEFT PLEURAL SPACE: Effusion: None Calcification: None Thickening: None Pneumothorax: None HEART: Heart Size: Normal Coronary calcification: Mild Pericardial effusion: None OTHER FINDINGS: Upper abdomen: Normal Bony thorax: Normal Supraclavicular region: Normal Other: Ascending thoracic aorta at the level the main pulmonary artery measures 3.7 cm. The main pul monary artery at the bifurcation measures 2.0 cm. IMPRESSION: Negative screening CT FOLLOW UP CT CHEST RECOMMENDATION: Screening low-dose CT chest [address] LUNG RAD: 1
== END | disposition home or self-care (01) ==
LOC: RADCTMAIN 06:59
PROVIDERS: ATTEND Family Medicine
DX: Z12.2 Encounter for screening for malignant neoplasm of respiratory organs (principal); Z87.891 Personal history of nicotine dependence

== ENCOUNTER → 2019-05-22 | Outpatient (CLI) | payer MEDICARE ==
--- NOTE | 2019-05-22 07:58 | US ---
EXAMINATION TYPE: US duplex aorta DATE OF EXAM: 05/22/2019 COMPARISON: CT lung, MRI spine CLINICAL HISTORY: E78.2 Mixed hyperlipidemia. Former smoker, controlled HTN EXAM MEASUREMENTS: Abdominal Aorta: Proximal: 2.9cm A/P Mid: 1.7cm A/P and Transverse Distal: 1.9cm Transverse Bifurcation: Right ANN = 1.7cm Transverse, Left ANN = 1.3cm Transverse Intimal wall changes are noted mid and distal aorta and into ANN bilaterally. IMPRESSION: No sonographic evidence of abdominal aortic aneurysm in the visualized portions of the ab dominal aorta. Atherosclerosis of the mid and distal abdominal aorta.
== END | disposition home or self-care (01) ==
LOC: RADUSWWP 06:48
PROVIDERS: ATTEND Family Medicine
DX: I70.0 Atherosclerosis of aorta (principal); F17.201 Nicotine dependence, unspecified, in remission
CPT/HCPCS: 93979

== ENCOUNTER → 2019-11-13 | Outpatient (CLI) | payer MEDICARE ==
--- NOTE | 2019-11-13 09:45 | XR ---
EXAMINATION TYPE: XR chest 2V DATE OF EXAM: 11/13/2019 COMPARISON: 12/06/2016 HISTORY: Back pain with history of COPD TECHNIQUE: Frontal and lateral views of the chest are obtained. FINDINGS: Strand-like right infrahilar opacity seen on the frontal view only. Pulmonary hyperinflati on and flattening of the diaphragms indicative of underlying COPD. Nodular density of the left hilum seen on the prior 2016. The cardiac silhouette size is within normal limits. The osseous structures are intact. Mild multilevel degenerative change of the spine. IMPRESSION: 1. Strand-like right infrahilar opacity is seen on this single view. This likely represents atelectas is. Correlate for fever, cough or leukocytosis to exclude early developing pneumonia. Underlying COPD . 2. Slight nodular density of the left hilum could relate to pulmonary vessels en face. Short-term fol low-up chest x-ray or CT recommended.
== END | disposition home or self-care (01) ==
LOC: RADXRYALE 08:59
PROVIDERS: ATTEND Family Medicine
DX: J44.1 Chronic obstructive pulmonary disease with (acute) exacerbation (principal)
CPT/HCPCS: 71046

== ENCOUNTER 2020-01-05 08:15 | Inpatient (IN) | payer MEDICARE ==
[2020-01-05] MEDS ORDERED: IPRATROPIUM-ALBUTEROL 3 ML NEB INHALATION STA (08:29)
[2020-01-05] MEDS ORDERED: methylPREDNISolone SOD SUCCI 125 MG/2 ML VIAL IV STA (08:29)
--- NOTE | 2020-01-05 08:32 | ED ---
General Adult HPI - General Chief complaint: Shortness of Breath Stated complaint: EVIE Time Seen by Provider: 01/05/20 08:23 Source: patient, family, RN notes reviewed Mode of arrival: ambulatory Limitations: no limitations - History of Present Illness Initial comments: Patient is a pleasant 64-year-old male presenting to the emergency department with difficulty breathing. Symptoms have progressively the past couple of weeks. Patient was on steroids and azithromycin with mild improvement of symptoms however symptoms have worsened since he stopped this. Patient has had fevers at home over the past week. Patient has cough that is mostly dry. Manish hoyt states occasionally does have some clear to green sputum. Patient does complain of chest congestion. - Related Data Home Medications Medication Instructions Recorded Confirmed Atorvastatin [Lipitor] 40 mg PO HS 12/05/16 01/05/20 [place]-3 Fatty Acids/Fish Oil [Fish 1 cap PO DAILY 12/05/16 01/05/20 Oil 1,000 mg Softgel] Albuterol Nebulized [Ventolin 2.5 mg INHALATION RT-TID PRN 01/05/20 01/05/20 Nebulized] Albuterol Sulfate [Ventolin HFA] 2 puff INHALATION RT-Q4H PRN 01/05/20 01/05/20 Cyclobenzaprine [Flexeril] 5 - 10 mg PO TID PRN 01/05/20 01/05/20 Fluticasone/Salmeterol [Advair 1 puff INHALATION RT-BID 01/05/20 01/05/20 500-50 Diskus] LORazepam [Ativan] 0.5 mg PO BID PRN 01/05/20 01/05/20 Losartan [Cozaar] 50 mg PO DAILY 01/05/20 01/05/20 Pantoprazole Sodium [Protonix] 40 mg PO DAILY 01/05/20 01/05/20 Umeclidinium Ramey [Incruse 1 puff INHALATION RT-DAILY 01/05/20 01/05/20 Ellipta] predniSONE [Deltasone] See Taper PO BID 01/05/20 01/05/20 Allergies Allergy/AdvReac Type Severity Reaction Status Date / Time naproxen Allergy Itching Verified 01/05/20 09:52 Penicillins Allergy Unknown Verified 01/05/20 09:52 Childhood Review of Systems ROS Statement: Those systems with pertinent positive or pertinent negative responses have been documented in the HPI. ROS Other: All systems not noted in ROS Statement are negative. Constitutional: Reports: fever, chills Eyes: Denies: eye pain ENT: Denies: ear pain Respiratory: Reports: cough, dyspnea Cardiovascular: Denies: chest pain Endocrine: Reports: fatigue Gastrointestinal: Denies: abdominal pain Genitourinary: Denies: dysuria Musculoskeletal: Denies: back pain Skin: Denies: rash Neurological: Denies: weakness Past Medical History Past Medical History: COPD, Hyperlipidemia, Hypertension, Pneumonia History of Any Multi-Drug Resistant Organisms: None Reported Past Surgical History: Unable to Obtain Past Anesthesia/Blood Transfusion Reactions: No Reported Reaction Past Psychological History: No Psychological Hx Reported Smoking Status: Former smoker Past Alcohol Use History: None Reported Past Drug Use History: None Reported - Past Family History Father Family Medical History: Coronary Artery Disease (CAD) Mother Family Medical History: Coronary Artery Disease (CAD) General Exam Limitations: no limitations General appearance: alert, in no apparent distress Eye exam: Present: normal appearance Neck exam: Present: normal inspection Respiratory exam: Present: respiratory distress, rales Cardiovascular Exam: Present: regular rate, normal rhythm GI/Abdominal exam: Present: soft. Absent: tenderness Extremities exam: Present: normal inspection. Absent: pedal edema, calf tenderness Neurological exam: Present: alert Psychiatric exam: Present: normal affect, normal mood Skin exam: Present: normal color Course Vital Signs 01/05/20 01/05/20 01/05/20 08:18 08:47 08:53 Temperature 99.4 F Pulse Rate 71 130 H 133 H Respiratory 20 Rate Blood Pressure 128/67 O2 Sat by Pulse 94 L Oximetry 01/05/20 01/05/20 09:01 10:00 Temperature 99.9 F H Pulse Rate 130 H 122 H Respiratory 24 23 Rate Blood Pressure 145/82 136/78 O2 Sat by Pulse 95 95 Oximetry EKG Findings - EKG Comments: EKG Findings:: Sinus tachycardia 120. MT 118. QRS 84. QT 320. QTc 452. Normal axis. Normal QRS. No acute ST change. Medical Decision Making - Medical Decision Making Patient reevaluated and updated. Heart rate 122. Case was discussed in detail with Dr. Livingston, who will admit covering for Dr. Ky Neumann. Patient does see Dr. Joyce Rios in and he'll be consulted. Patient does meet sepsis criteria diagnosed at 10:30 AM. There is moderate suspicion for coronavirus infection on this patient. Test results pending. - Lab Data Result diagrams: 01/05/20 08:55 01/05/20 08:55 Lab Results 01/05/20 01/05/20 01/05/20 Range/Units 08:55 08:55 08:55 WBC 47.0 H (3.8-10.6) k/uL RBC 5.03 (4.30-5.90) m/uL Hgb 14.2 (13.0-17.5) gm/dL Hct 45.0 (39.0-53.0) % MCV 89.5 (80.0-100.0) fL MCH 28.3 (25.0-35.0) pg MCHC 31.6 (31.0-37.0) g/dL RDW 13.1 (11.5-15.5) % Plt Count 396 (150-450) k/uL Neutrophils % 60 % Lymphocytes % 35 % Monocytes % 3 % Eosinophils % 0 % Basophils % 0 % Neutrophils # 28.3 H (1.3-7.7) k/uL Lymphocytes # 16.4 H (1.0-4.8) k/uL Monocytes # 1.4 H (0-1.0) k/uL Eosinophils # 0.0 (0-0.7) k/uL Basophils # 0.1 (0-0.2) k/uL Manual Slide Review Performed Poikilocytosis (manual Present PT 11.1 (9.0-12.0) sec INR 1.1 (<1.2) APTT 24.6 (22.0-30.0) sec Sodium 134 L (137-145) mmol/L Potassium 3.5 (3.5-5.1) mmol/L Chloride 100 (98-107) mmol/L Carbon Dioxide 24 (22-30) mmol/L Anion Gap 10 mmol/L BUN 20 (9-20) mg/dL Creatinine 0.79 (0.66-1.25) mg/dL Est GFR (CKD-EPI)AfAm >90 (>60 ml/min/1.73 sqM) Est GFR (CKD-EPI)NonAf >90 (>60 ml/min/1.73 sqM) Glucose 128 H (74-99) mg/dL Plasma Lactic Acid Jeramy (0.7-2.0) mmol/L Calcium 8.9 (8.4-10.2) mg/dL Magnesium (1.6-2.3) mg/dL Total Bilirubin 0.5 (0.2-1.3) mg/dL AST 24 (17-59) U/L ALT 22 (4-49) U/L Alkaline Phosphatase 74 (38-126) U/L Lactate Dehydrogenase (313-618) U/L C-Reactive Protein (<10.0) mg/L NT-Pro-B Natriuret Pep pg/mL Total Protein 6.6 (6.3-8.2) g/dL Albumin 3.8 (3.5-5.0) g/dL 01/05/20 01/05/20 01/05/20 Range/Units 08:55 08:55 09:26 WBC (3.8-10.6) k/uL RBC (4.30-5.90) m/uL Hgb (13.0-17.5) gm/dL Hct (39.0-53.0) % MCV (80.0-100.0) fL MCH (25.0-35.0) pg MCHC (31.0-37.0) g/dL RDW (11.5-15.5) % Plt Count (150-450) k/uL Neutrophils % % Lymphocytes % % Monocytes % % Eosinophils % % Basophils % % Neutrophils # (1.3-7.7) k/uL Lymphocytes # (1.0-4.8) k/uL Monocytes # (0-1.0) k/uL Eosinophils # (0-0.7) k/uL Basophils # (0-0.2) k/uL Manual Slide Review Poikilocytosis (manual PT (9.0-12.0) sec INR (<1.2) APTT (22.0-30.0) sec Sodium (137-145) mmol/L Potassium (3.5-5.1) mmol/L Chloride (98-107) mmol/L Carbon Dioxide (22-30) mmol/L Anion Gap mmol/L BUN (9-20) mg/dL Creatinine (0.66-1.25) mg/dL Est GFR (CKD-EPI)AfAm (>60 ml/min/1.73 sqM) Est GFR (CKD-EPI)NonAf (>60 ml/min/1.73 sqM) Glucose (74-99) mg/dL Plasma Lactic Acid Jeramy 1.3 (0.7-2.0) mmol/L Calcium (8.4-10.2) mg/dL Magnesium 1.7 (1.6-2.3) mg/dL Total Bilirubin (0.2-1.3) mg/dL AST (17-59) U/L ALT (4-49) U/L Alkaline Phosphatase (38-126) U/L Lactate Dehydrogenase 420 (313-618) U/L C-Reactive Protein 59.3 H (<10.0) mg/L NT-Pro-B Natriuret Pep 291 pg/mL Total Protein (6.3-8.2) g/dL Albumin (3.5-5.0) g/dL - Radiology Data Radiology results: image reviewed (Chest x-ray shows increased patchy infiltrate bilateral bases. COPD.) Critical Care Time Critical Care Time: Yes Total Critical Care Time: 33 Disposition Clinical Impression: Acute exacerbation of chronic obstructive airways disease, Pneumonia, Sepsis Disposition: ADMITTED IP TO THIS [facility] Condition: Serious Is patient prescribed a controlled substance at d/c from ED?: No Referrals: Khoi Alejo DO [Primary Care Provider] - 1-2 days Decision Time: 10:37
[2020-01-05 09:32] LABS: Basophils # (A) 0.1 k/uL (0-0.2); Basophils % (A) 0 %; Eosinophils % (A) 0 %; HGB 14.2 gm/dL (13.0-17.5); Lymphocytes % (A) 35 %; MCH 28.3 pg (25.0-35.0); MCHC 31.6 g/dL (31.0-37.0); MCV 89.5 fL (80.0-100.0); Monocytes # (A) 1.4 k/uL (0-1.0); Monocytes % (A) 3 %; Neutrophils # (A) 28.3 k/uL (1.3-7.7); Neutrophils % (A) 60 %; Platelet Count 396 k/uL (150-450); RBC 5.03 m/uL (4.30-5.90); RDW 13.1 % (11.5-15.5)
[2020-01-05 09:36] LABS: INR 1.1 (<1.2); Partial Thromboplastin Time 24.6 sec (22.0-30.0); Prothrombin Time 11.1 sec (9.0-12.0)
[2020-01-05 09:43] LABS: Lymphocytes # (A) 16.4 k/uL (1.0-4.8)
[2020-01-05 09:47] LABS: ALT 22 U/L (4-49); AST 24 U/L (17-59); African American GFR (CKD) >90 (>60 ml/min/1.73 sqM); Albumin 3.8 g/dL (3.5-5.0); Alkaline Phosphatase 74 U/L (38-126); Anion Gap 10 mmol/L; Blood Urea Nitrogen 20 mg/dL (9-20); Calcium 8.9 mg/dL (8.4-10.2); Carbon Dioxide 24 mmol/L (22-30); Chloride 100 mmol/L (98-107); Glucose 128 mg/dL (74-99); Non-African American GFR(CKD) >90 (>60 ml/min/1.73 sqM); Potassium 3.5 mmol/L (3.5-5.1); Sodium 134 mmol/L (137-145); Total Bilirubin 0.5 mg/dL (0.2-1.3); Total Protein 6.6 g/dL (6.3-8.2)
--- NOTE | 2020-01-05 10:06 | XR ---
EXAMINATION TYPE: XR chest 2V DATE OF EXAM: 01/05/2020 CLINICAL HISTORY: Difficulty breathing. Short of breath. History of COPD. TECHNIQUE: Frontal and lateral views of the chest are obtained. COMPARISON: Chest radiograph 11/13/2019 FINDINGS: Redemonstrated hyperinflation and flattening of the hemidiaphragms. The cardiomediastinal silhouette is within normal limits for size. Pulmonary vasculature is normal. Increased patchy airspa ce opacities of the bilateral lung bases. Left upper lobe linear subsegmental atelectasis. No pleural effusion or pneumothorax seen. The osseous structures are intact. IMPRESSION: 1. Increased patchy airspace opacities of the bilateral lung bases. 2. Emphysematous changes.
[2020-01-05 10:18] LABS: Poikilocytosis (M) Present
[2020-01-05 10:28] LABS: C Reactive Protein 59.3 mg/L (<10.0); Magnesium 1.7 mg/dL (1.6-2.3)
[2020-01-05] MEDS ORDERED: IPRATROPIUM-ALBUTEROL 3 ML NEB INHALATION PRN (10:37)
[2020-01-05] MEDS ORDERED: LEVOFLOXACIN 750MG-D5W PMX 750 MG in DEXTROSE/WATER 1 150ML.BAG IVPB STA (10:37)
[2020-01-05] MEDS ORDERED: PNEUMONIA PROTOCOL UTILIZED 1 EACH MISC PO PRN (10:37)
[2020-01-05] MEDS: SODIUM CHLORIDE 0.9% 1,000 ML IV SCH ×2 (11:01→17:37)
[2020-01-05 12:11] LABS: Glucose,Whole Blood 159 mg/dL (75-99)
[2020-01-05] MEDS: IPRATROPIUM-ALBUTEROL 3 ML NEB INHALATION SCH ×3 (12:52→21:16)
[2020-01-05] MEDS: INSULIN ASPART (NovoLOG) 100 UNIT/ML VIAL SQ SCH ×3 (13:11→21:41)
[2020-01-05] MEDS: methylPREDNISolone SOD SUCCI 125 MG/2 ML VIAL IV SCH ×2 (14:44→17:36)
--- NOTE | 2020-01-05 16:24 | CONS ---
CONSULTATION PULMONARY/CRITICAL CARE CONSULTATION: DATE OF SERVICE: 01/05/2020 REASON FOR CONSULTATION: Shortness of breath and pneumonia. This is a 64-year-old male who presented to the emergency department with complaints of difficulty breathing. He also had cough productive of some phlegm that was mostly white in color as well as tightness in his chest, wheezing and shortness of breath. The patient has not been feeling well for a couple of weeks. He apparently was recently on some steroids and azithromycin given to him by his primary doctor, although that did not seem to help. He got worse. He was evaluated in the ER by the ER physician and admitted to the hospital with a diagnosis of COPD exacerbation and also pneumonia. Currently he is feeling only a bit better since he was seen in the emergency room on 01/04 at 8:00 in the morning. He denies any chest pain or pressure. There is no nausea, vomiting or diarrhea. No genitourinary complaints. He is not coughing up any blood. He was tested for COVID-19 infection in the emergency room with a nasopharyngeal swab. HOME MEDICATIONS: Reviewed. He is on Lipitor, fish oil, albuterol updrafts, Flexeril, Advair, Ativan, Cozaar, Protonix, Incruse, and prednisone. ALLERGIES: ALLERGIES include NAPROXEN and PENICILLIN. MEDICAL HISTORY: His medical history includes COPD, hyperlipidemia, hypertension and pneumonia. SURGICAL HISTORY: Surgical history is essentially nil. He did have some remote procedures that were relatively minor. SOCIAL HISTORY: Positive for previous tobacco use. He does not smoke currently. He denies any illicit drug use and denies any alcohol use. FAMILY HISTORY: Positive for both mother and father with coronary disease. He sees my partner for his COPD. Apparently he tells me that my partner told him that he had 37% lung function left. He is not on any home oxygen therapy. REVIEW OF SYSTEMS: CONSTITUTIONAL: Negative. NEUROLOGIC: Negative. HEENT: Negative. CARDIOVASCULAR: Negative. PULMONARY: Shortness of breath, chest congestion, chest tightness, wheezing, cough and phlegm production. GI: Negative. : Negative. RHEUMATOLOGIC: Negative. IMMUNOLOGIC: Negative. ENDOCRINOLOGIC: Negative. DERMATOLOGIC: Negative. PHYSICAL EXAMINATION: VITAL SIGNS: Current vital signs include a temperature which is 99.9 degrees, heart rate 118, respiratory rate 31, blood pressure 115/73, mean 87. Saturations are 94% on 2 L. GENERAL APPEARANCE: Appears in no acute distress. HEENT: Examination is grossly unremarkable. Nasal oxygen noted. NECK: Supple. Full range of motion. Neck veins are flat. CARDIOVASCULAR: Examination reveals regular rhythm and rate. S1, S2 normal. There is no S3, S4 or murmur. Heart rate is about 110 beats per minute. LUNGS: Lungs reveal diffuse inspiratory and expiratory wheezes and rhonchi. There is prolongation on forced maneuver. Adventitious lung sounds louder on forced maneuver. ABDOMEN: Soft. Bowel sounds are heard. EXTREMITIES: Intact. No cyanosis, clubbing or edema. SKIN: Without rash. NEUROLOGIC: Neurologic examination is brief but nonfocal. LAB DATA: Reviewed. White count is 47,000, hemoglobin 14.2, hematocrit 45, platelet count 396,000. PT, INR, PTT are all normal. Sodium 134. Potassium chloride, CO2, anion gap, BUN and creatinine were all normal. The rest of the lab work for the most part is normal. C-reactive protein was 59.3. N-terminal proBNP was 291. Lactic acid was 1.3. Chest x-ray shows patchy opacities at both lung bases, right greater than left. There are also some emphysematous changes as well. CURRENT MEDICATIONS: Current medications are reviewed. The patient is on azithromycin, Pulmicort, ceftriaxone, formoterol, subcutaneous heparin, insulin, DuoNeb, Solu-Medrol and saline IV. ASSESSMENT: 1. Chronic obstructive pulmonary disease exacerbation complicated by right lower lobe pneumonia and possibly left lower lobe pneumonia as well. 2. Ongoing tobacco use with nicotine addiction. 3. Severe chronic lung disease with an FEV1, according to the patient, at 37% of predicted. 4. Hyperlipidemia. 5. Hypertension. 6. Previous history of pneumonia. PLAN: The patient was placed on appropriate medications in form of both azithromycin and Rocephin for community-acquired pneumonia. The patient is also on DuoNeb q.i.d. and p.r.n. as well as Pulmicort 1 mg and Perforomist 20 mcg twice a day. He is getting Solu-Medrol at proper doses. Additional recommendations and suggestions are forthcoming. Follow up in a couple of days with another chest x-ray. No additional recommendations are made. Will continue to follow. He will need follow up with Dr. Dumont post discharge. MMODL / IJN: [id number] / MTDD
[2020-01-05 17:10] LABS: Glucose,Whole Blood 165 mg/dL (75-99)
[2020-01-05] MEDS: HEPARIN SODIUM,PORCINE 5,000 UNIT/ML 1 ML VIAL SQ SCH (17:37)
[2020-01-05 18:31] LABS: Ferritin 315.1 ng/mL (22.0-322.0)
[2020-01-05 20:32] LABS: Glucose,Whole Blood 209 mg/dL (75-99)
[2020-01-05] MEDS: BUDESONIDE 1 MG/2 ML NEBU INHALATION SCH (21:16)
[2020-01-05] MEDS: FORMOTEROL FUMARATE 20 MCG/2 ML NEBU INHALATION SCH (21:16)
[2020-01-06] MEDS: methylPREDNISolone SOD SUCCI 125 MG/2 ML VIAL IV SCH ×4 (00:14→17:27)
[2020-01-06] MEDS: HEPARIN SODIUM,PORCINE 5,000 UNIT/ML 1 ML VIAL SQ SCH ×3 (00:14→17:27)
--- NOTE | 2020-01-06 01:11 | P.HPIM ---
History of Present Illness H&P Date: 01/05/20 Chief Complaint: EVIE Patient is a 64-year-old male with a known history of COPD currently not on home oxygen, hypertension, hyperlipidemia, GERD, previous history of smoking presents to ER with complaints of difficulty in breathing worsening since yesterday. Patient has been having shortness of breath for for the past 2 weeks. Patient was on steroid tapering course and azithromycin with mild improvement symptoms however worsened again since last night. Patient states that he had fever at home. Does have cough mainly dry with occasional greenish sputum. No chest pa in. No nausea vomiting or abdominal pain or diarrhea. No recent illnesses otherwise. Patient was tachycardic and T-max 99% on admission. Laboratory data showed WBC 47.0 INR 1.1 Sodium 134 Potassium 3.5, chloride 100, anion gap 10 and BUN 20 creatinine 0.79 Lactic acid 1.3 Magnesium 1.7 Liver enzymes are within normal limits. CRP 59.3 and pro calcitonin 0.28 elevated. proBNP 291 and LDH 420, ferritin 315 Chest x-ray showed increase of patchy airspace opacities likely bilateral lung bases. Emphysematous changes. Review of Systems Constitutional: Subjective fever and chills at home . No generalized weakness or weight loss. Abdomen: Patient denied nausea vomiting and diarrhea and abdominal pain. Cardiovascular: Patient denies any chest pain or short of breath no palpitations. Respiratory: Patient does have cough without sputum production. Does have shortness of breath Neurologic: Patient denied any numbness or tingling headache. Musculoskeletal: Patient denies any complaints of joint swelling or deformity. Skin: Negative Psychiatric: Negative Endocrine: No heat or cold intolerance. No recent weight gain. Genitourinary: No dysuria or hematuria. All other 14 point ROS negative except the above Past Medical History Past Medical History: COPD, GERD/Reflux, Hyperlipidemia, Hypertension, Pneumonia Additional Past Medical History / Comment(s): Bronchitis, acute hypoxic hepercarbic respiratory failure/bipap, occasional lower back pain, benign colon polypectomy History of Any Multi-Drug Resistant Organisms: None Reported Past Surgical History: Unable to Obtain Additional Past Surgical History / Comment(s): colonoscopy with benign polypectomy Past Anesthesia/Blood Transfusion Reactions: No Reported Reaction Smoking Status: Former smoker - Past Family History Father Family Medical History: Coronary Artery Disease (CAD) Additional Family Medical History / Comment(s): Father at the age of 74 yrs. Mother Family Medical History: Coronary Artery Disease (CAD) Additional Family Medical History / Comment(s): Mother had CABG. She in her 70s. Medications and Allergies Home Medications Medication Instructions Recorded Confirmed Type Atorvastatin [Lipitor] 40 mg PO HS 12/05/16 01/05/20 History Commiskey-3 Fatty Acids/Fish Oil [Fish 1 cap PO DAILY 12/05/16 01/05/20 History Oil 1,000 mg Softgel] Albuterol Nebulized [Ventolin 2.5 mg INHALATION RT-TID PRN 01/05/20 01/05/20 History Nebulized] Albuterol Sulfate [Ventolin HFA] 2 puff INHALATION RT-Q4H PRN 01/05/20 01/05/20 History Cyclobenzaprine [Flexeril] 5 - 10 mg PO TID PRN 01/05/20 01/05/20 History Fluticasone/Salmeterol [Advair 1 puff INHALATION RT-BID 01/05/20 01/05/20 History 500-50 Diskus] LORazepam [Ativan] 0.5 mg PO BID PRN 01/05/20 01/05/20 History Losartan [Cozaar] 50 mg PO DAILY 01/05/20 01/05/20 History Pantoprazole Sodium [Protonix] 40 mg PO DAILY 01/05/20 01/05/20 History Umeclidinium [place]st [Incruse 1 puff INHALATION RT-DAILY 01/05/20 01/05/20 History Ellipta] predniSONE [Deltasone] See Taper PO BID 01/05/20 01/05/20 History Allergies Allergy/AdvReac Type Severity Reaction Status Date / Time naproxen Allergy Itching Verified 01/05/20 09:52 Penicillins Allergy Unknown Verified 01/05/20 09:52 Childhood Physical Exam Vitals: Vital Signs Temp Pulse Pulse Resp BP BP Pulse Ox 01/05/20 12:00 98.7 F 104 H 20 135/70 98 01/05/20 11:00 118 H 31 H 115/73 94 L 01/05/20 10:30 116 H 23 121/71 93 L 01/05/20 10:00 122 H 23 136/78 95 01/05/20 09:01 99.9 F H 130 H 24 145/82 95 01/05/20 08:53 133 H 01/05/20 08:47 130 H 01/05/20 08:18 99.4 F 71 20 128/67 94 L Intake and Output 01/05/20 01/05/20 01/05/20 06:59 14:59 22:59 Intake Total 200 Balance 200 Intake: Oral 200 Other: # Voids 0 Weight 71.214 kg PHYSICAL EXAMINATION: Patient is lying in the bed comfortably, no acute distress, awake alert and oriented.. HEENT: Normocephalic. Neck is supple. Pupils reactive. Nostrils clear. Oral cavity is moist. Ears reveal no drainage. Neck reveals no JVD, carotid bruits, or thyromegaly. CHEST EXAMINATION: Trachea is central. Symmetrical expansion. Diminished air entry on the right side. Diffuse expiratory wheezing and rhonchi.. CARDIAC: Normal S1, S2 with no gallops. No murmurs ABDOMEN: Soft. Bowel sounds normal. No organomegaly. No abdominal bruits. Extremities: reveal no edema. No clubbing or cyanosis Neurologically awake, alert, oriented x3 with well-coordinated movements. No focal deficits noted Skin: No rash or skin lesions. Psychiatric: Coperative. Nonsuicidal Musculoskeletal: No joint swelling or deformity. Normal range of motion. Results CBC & Chem 7: 01/05/20 08:55 01/05/20 08:55 Labs: Abnormal Lab Results - Last 24 Hours (Table) 01/05/20 01/05/20 01/05/20 Range/Units 08:55 08:55 08:55 WBC 47.0 H (3.8-10.6) k/uL Neutrophils # 28.3 H (1.3-7.7) k/uL Lymphocytes # 16.4 H (1.0-4.8) k/uL Monocytes # 1.4 H (0-1.0) k/uL Sodium 134 L (137-145) mmol/L Glucose 128 H (74-99) mg/dL POC Glucose (mg/dL) (75-99) mg/dL C-Reactive Protein 59.3 H (<10.0) mg/L 01/05/20 Range/Units 12:09 WBC (3.8-10.6) k/uL Neutrophils # (1.3-7.7) k/uL Lymphocytes # (1.0-4.8) k/uL Monocytes # (0-1.0) k/uL Sodium (137-145) mmol/L Glucose (74-99) mg/dL POC Glucose (mg/dL) 159 H (75-99) mg/dL C-Reactive Protein (<10.0) mg/L Thrombosis Risk Factor Assmnt - DVT/VTE Prophylaxis DVT/VTE Prophylaxis: Pharmacologic Prophylaxis ordered - Choose All That Apply Any of the Below Risk Factors Present?: Yes Each Factor Represents 1 point: Abnormal pulmonary function (COPD), Serious lung disease incl. pneumonia (< 1month) Other Risk Factors: Yes Each Risk Factor Represents 2 Points: Age 61-74 years Other congenital or acquired thrombophilia - If yes, enter type in comment: No Thrombosis Risk Factor Assessment Total Risk Factor Score: 4 Thrombosis Risk Factor Assessment Level: Moderate Risk Assessment and Plan Assessment: Acute COPD exacerbation Bibasilar pneumonia with increasing patchy airspace opacities at the lung bases. Sepsis secondary to pneumonia Significantly elevated WBC count Hypertension Hyperlipidemia Ongoing nicotine addiction GERD DVT prophylaxis with heparin subcu Plan: Patient will be continued on antibiotics of follow-up ceftriaxone and azithromycin. Continue with Solu-Medrol and breathing treatments and follow-up closely. Rule out COVID-19 infection. Repeat CBC and consider oncology evaluation if the WBC count is still significantly elevated. Continue with oxygen therapy. Smoking cessation has been counseled extensively. Pulmonary is on board.. Time with Patient: Greater than 30
[2020-01-06] MEDS: SODIUM CHLORIDE 0.9% 1,000 ML IV SCH ×4 (01:55→23:30)
[2020-01-06 06:17] LABS: Basophils # (A) 0.1 k/uL (0-0.2); Basophils % (A) 0 %; Eosinophils % (A) 0 %; HCT 42.9 % (39.0-53.0); HGB 13.4 gm/dL (13.0-17.5); Hypochromasia Slight; Lymphocytes % (A) 43 %; MCH 28.3 pg (25.0-35.0); MCHC 31.2 g/dL (31.0-37.0); MCV 90.6 fL (80.0-100.0); Mean Platelet Volume 6.8; Monocytes # (A) 0.5 k/uL (0-1.0); Monocytes % (A) 2 %; Neutrophils # (A) 18.3 k/uL (1.3-7.7); Neutrophils % (A) 53 %; Platelet Count 353 k/uL (150-450); RBC 4.74 m/uL (4.30-5.90); WBC 34.6 k/uL (3.8-10.6)
[2020-01-06 06:27] LABS: Glucose,Whole Blood 147 mg/dL (75-99)
[2020-01-06 06:28] LABS: African American GFR (CKD) >90 (>60 ml/min/1.73 sqM); Anion Gap 7 mmol/L; Blood Urea Nitrogen 19 mg/dL (9-20); Calcium 8.1 mg/dL (8.4-10.2); Carbon Dioxide 23 mmol/L (22-30); Chloride 106 mmol/L (98-107); Glucose 150 mg/dL (74-99); Non-African American GFR(CKD) >90 (>60 ml/min/1.73 sqM); Potassium 4.3 mmol/L (3.5-5.1); Sodium 136 mmol/L (137-145)
[2020-01-06] MEDS: INSULIN ASPART (NovoLOG) 100 UNIT/ML VIAL SQ SCH ×4 (06:45→20:41)
--- NOTE | 2020-01-06 07:04 | XR ---
EXAMINATION TYPE: XR chest 1V portable DATE OF EXAM: 01/06/2020 HISTORY: pneumonia. REFERENCE: Previous study dated 01/05/2020. FINDINGS: Lung volumes are prominent. There is chronic interstitial lung disease. There is improved a eration at the right lung base has slightly worsened aeration at the left lung base. Heart size upper limits of normal. Pleural spaces are clear. IMPRESSION: 1. COPD. 2. WAXING AND WANING BIBASILAR INFILTRATES.
[2020-01-06] MEDS: BUDESONIDE 1 MG/2 ML NEBU INHALATION SCH ×2 (08:28→19:51)
[2020-01-06] MEDS: IPRATROPIUM-ALBUTEROL 3 ML NEB INHALATION SCH ×4 (08:28→19:51)
[2020-01-06] MEDS: FORMOTEROL FUMARATE 20 MCG/2 ML NEBU INHALATION SCH ×2 (08:28→19:51)
[2020-01-06] MEDS ORDERED: AZITHROMYCIN 500 MG in SODIUM CHLORIDE 0.9% 250 ML IVPB SCH (09:00)
[2020-01-06] MEDS ORDERED: LEVOFLOXACIN 750MG-D5W PMX 750 MG in DEXTROSE/WATER 1 150ML.BAG IVPB SCH (11:00)
--- NOTE | 2020-01-06 12:10 | PN ---
PROGRESS NOTE PULMONARY/CRITICAL CARE PROGRESS NOTE: DATE OF SERVICE: January 06, 2020 The patient was seen in consultation yesterday. This is a 64-year-old male presented to the emergency department with complaints of difficulty breathing. He also had a productive cough of phlegm, tightness in his chest, wheezing, and chest congestion. He had not been feeling well for a couple of weeks. He apparently was recently started on some steroids and azithromycin given to him by his primary care physician. He does see my partner for his underlying COPD. His admission diagnosis was that of COPD exacerbation and bibasilar pneumonia. Currently, he is feeling better. His breathing is much improved. He is sitting at the bedside. PHYSICAL EXAMINATION: VITAL SIGNS: Current vital signs include a temperature 97.7m heart rate 84, respiratory rate 18, blood pressure 142/87, mean 105. 2 L saturation 96%. GENERAL: Appears in no acute distress. HEENT: Examination is grossly unremarkable. NECK: Supple. Full range of motion. No adenopathy. Neck veins are flat. CARDIOVASCULAR: Examination reveals regular rhythm rate. S1, S2 normal. No S3, S4, or murmur. LUNGS: Scattered inspiratory and expiratory wheezes and rhonchi. No crackles. Breath sounds are equal. There is slight prolongation. ABDOMEN: Soft. Bowel sounds are heard. EXTREMITIES are intact. No cyanosis, clubbing, or edema. LABS: Reviewed. White count 34.6, hemoglobin 13.4, hematocrit 42.9, platelet count 353,000. Sodium 136, potassium 4.3, chloride 106, CO2 23, anion gap is 7. BUN and creatinine were 19 and 0.58. Calcium 8.1. Microbiology is negative. Chest x-ray from today shows bibasilar infiltrates. Medications are reviewed. Currently, the patient is on Zithromax, Pulmicort, ceftriaxone, formoterol, DuoNeb, and Solu-Medrol. ASSESSMENT: 1. Chronic obstructive pulmonary disease exacerbation complicated by bibasilar pneumonia, right greater than left. 2. Ongoing tobacco use and nicotine addiction. 3. Severe chronic obstructive pulmonary disease with a purported FEV1 of 37% of predicted. 4. Hyperlipidemia. 5. Hypertension. 6. Prior history of pneumonia. PLAN: Currently, the patient is in for COPD exacerbation. He is on appropriate antibiotics for community-acquired pneumonia. He remains on DuoNeb, Pulmicort, formoterol, and Solu-Medrol. He is getting Azithromycin and ceftriaxone. Chest x-ray is essentially unchanged. We will continue to follow. Clinically, he is improved. DAMARIS / ADINN: [id number] /
[2020-01-06 12:33] LABS: Glucose,Whole Blood 146 mg/dL (75-99)
[2020-01-06 14:31] VITALS: BMI 24.2
[2020-01-06 17:23] LABS: Glucose,Whole Blood 164 mg/dL (75-99)
[2020-01-06 20:39] LABS: Glucose,Whole Blood 160 mg/dL (75-99)
--- NOTE | 2020-01-06 23:47 | P.PN ---
Subjective Progress Note Date: 01/06/20 Patient is a 64-year-old male with a known history of COPD currently not on home oxygen, hypertension, hyperlipidemia, GERD, previous history of smoking presents to ER with complaints of difficulty in breathing worsening since yesterday. Patient has been having shortness of breath for for the past 2 weeks. Patient was on steroid tapering course and azithromycin with mild improvement symptoms however worsened again since last night. Patient states that he had fever at home. Does have cough mainly dry with occasional greenish sputum. No chest pain. No nausea vomiting or abdominal pain or diarrhea. No recent illnesses otherwise. Patient was tachycardic and T-max 99% on admission. Laboratory data showed WBC 47.0 INR 1.1 Sodium 134 Potassium 3.5, chloride 100, anion gap 10 and BUN 20 creatinine 0.79 Lactic acid 1.3 Magnesium 1.7 Liver enzymes are within normal limits. CRP 59.3 and pro calcitonin 0.28 elevated. proBNP 291 and LDH 420, ferritin 315 Chest x-ray showed increase of patchy airspace opacities likely bilateral lung bases. Emphysematous changes. 01/06/2020 Patient is currently sitting in the bed comfortably. Able to walk in the room. Still requiring oxygen via nasal cannula. Wheezing on examination but breathing is easier compared to yesterday. Currently being continued on IV steroids and breathing treatments and also antibiotics in the form of ceftriaxone azithromyc in. Patient otherwise denied any complaints of chest pain. No nausea vomiting abdominal pain or diarrhea. No fever no chills. Current medications reviewed. Objective - Vital Signs Vital signs: Vital Signs Temp 98.1 F 01/06/20 20:00 Pulse 94 01/06/20 20:16 Resp 18 01/06/20 20:16 BP 171/79 01/06/20 20:00 Pulse Ox 95 01/06/20 20:00 Intake & Output 01/06/20 01/06/20 01/07/20 06:59 18:59 06:59 Intake Total 598 Balance 598 Weight 72.3 kg 72.3 kg Intake: Oral 598 Other: Voiding Method Toilet # Voids 2 3 - Exam PHYSICAL EXAMINATION: Patient is lying in the bed comfortably, no acute distress, awake alert and oriented.. HEENT: Normocephalic. Neck is supple. Pupils reactive. Nostrils clear. Oral cavity is moist. Ears reveal no drainage. Neck reveals no JVD, carotid bruits, or thyromegaly. CHEST EXAMINATION: Trachea is central. Symmetrical expansion. Diffuse expiratory wheezing and rhonchi.. CARDIAC: Normal S1, S2 with no gallops. No murmurs ABDOMEN: Soft. Bowel sounds normal. No organomegaly. No abdominal bruits. Extremities: reveal no edema. No clubbing or cyanosis Neurologically awake, alert, oriented x3 with well-coordinated movements. No focal deficits noted Skin: No rash or skin lesions. Psychiatric: Coperative. Nonsuicidal Musculoskeletal: No joint swelling or deformity. Normal range of motion. - Labs CBC & Chem 7: 01/06/20 05:55 01/06/20 05:55 Labs: Abnormal Lab Results - Last 24 Hours (Table) 01/06/20 01/06/20 01/06/20 Range/Units 05:55 05:55 06:26 WBC 34.6 H (3.8-10.6) k/uL Neutrophils # 18.3 H (1.3-7.7) k/uL Lymphocytes # 15.0 H (1.0-4.8) k/uL Sodium 136 L (137-145) mmol/L Creatinine 0.58 L (0.66-1.25) mg/dL Glucose 150 H (74-99) mg/dL POC Glucose (mg/dL) 147 H (75-99) mg/dL Calcium 8.1 L (8.4-10.2) mg/dL 01/06/20 01/06/20 01/06/20 Range/Units 12:19 16:39 20:37 WBC (3.8-10.6) k/uL Neutrophils # (1.3-7.7) k/uL Lymphocytes # (1.0-4.8) k/uL Sodium (137-145) mmol/L Creatinine (0.66-1.25) mg/dL Glucose (74-99) mg/dL POC Glucose (mg/dL) 146 H 164 H 160 H (75-99) mg/dL Calcium (8.4-10.2) mg/dL Microbiology - Last 24 Hours (Table) 01/06/20 10:00 Sputum Culture - Preliminary Sputum 01/05/20 09:29 Blood Culture - Preliminary Blood No Growth after 24 hours Assessment and Plan Assessment: Acute COPD exacerbation Bibasilar pneumonia with increasing patchy airspace opacities at the lung bases. Sepsis secondary to pneumonia Significantly elevated WBC count Hypertension Hyperlipidemia Ongoing nicotine addiction GERD DVT prophylaxis with heparin subcu Plan: Patient will be continued on antibiotics of follow-up ceftriaxone and azithromycin. Continue with Solu-Medrol and breathing treatments and follow-up closely. Rule out COVID-19 infection. Repeat CBC and consider oncology evaluation if the WBC count is still significantly elevated. Continue with oxygen therapy. Smoking cessation has been counseled extensively. Pulmonary is on board.. Time with Patient: Greater than 30
[2020-01-07] MEDS: methylPREDNISolone SOD SUCCI 125 MG/2 ML VIAL IV SCH ×5 (00:16→23:44)
[2020-01-07] MEDS: HEPARIN SODIUM,PORCINE 5,000 UNIT/ML 1 ML VIAL SQ SCH ×4 (00:16→23:44)
[2020-01-07 06:14] LABS: Glucose,Whole Blood 137 mg/dL (75-99)
[2020-01-07] MEDS: INSULIN ASPART (NovoLOG) 100 UNIT/ML VIAL SQ SCH ×4 (07:08→23:43)
[2020-01-07 07:34] LABS: HCT 40.5 % (39.0-53.0); HGB 12.9 gm/dL (13.0-17.5); MCH 28.9 pg (25.0-35.0); MCHC 31.9 g/dL (31.0-37.0); MCV 90.7 fL (80.0-100.0); Mean Platelet Volume 6.9; Platelet Count 348 k/uL (150-450); RBC 4.47 m/uL (4.30-5.90); RDW 13.2 % (11.5-15.5); WBC 32.6 k/uL (3.8-10.6)
[2020-01-07 07:39] LABS: African American GFR (CKD) >90 (>60 ml/min/1.73 sqM); Anion Gap 7 mmol/L; Blood Urea Nitrogen 18 mg/dL (9-20); Calcium 8.7 mg/dL (8.4-10.2); Carbon Dioxide 26 mmol/L (22-30); Chloride 105 mmol/L (98-107); Glucose 128 mg/dL (74-99); Non-African American GFR(CKD) >90 (>60 ml/min/1.73 sqM); Potassium 5.2 mmol/L (3.5-5.1); Sodium 138 mmol/L (137-145)
[2020-01-07] MEDS: BUDESONIDE 1 MG/2 ML NEBU INHALATION SCH ×2 (07:54→20:04)
[2020-01-07] MEDS: IPRATROPIUM-ALBUTEROL 3 ML NEB INHALATION SCH ×4 (07:54→20:04)
[2020-01-07] MEDS: FORMOTEROL FUMARATE 20 MCG/2 ML NEBU INHALATION SCH ×2 (07:54→20:04)
[2020-01-07 08:17] LABS: Lymphocytes # (M) 19.56 k/uL (1.0-4.8); Neutrophils # (M) 13.04 k/uL (1.3-7.7); Neutrophils % (M) 40 %
[2020-01-07 08:18] LABS: Nucleated Red Blood Cells 0 /100 WBC (0-0); Total Cells Counted 100
[2020-01-07] MEDS: AZITHROMYCIN 500 MG TAB PO SCH (09:18)
[2020-01-07] MEDS: SODIUM CHLORIDE 0.9% 1,000 ML IV SCH ×2 (09:18→17:23)
[2020-01-07 12:16] LABS: Glucose,Whole Blood 124 mg/dL (75-99)
[2020-01-07] MEDS: PANTOPRAZOLE 40 MG TABLET PO SCH ×2 (12:48→17:22)
--- NOTE | 2020-01-07 13:22 | P.PN ---
Subjective Progress Note Date: 01/07/20 Principal diagnosis: Acute exacerbation of chronic obstructive pulmonary disease Complicated by basilar pneumonia right greater than left The patient is seen today on the 2020 in follow-up on the selective care unit. He was admitted for an acute exacerbation of chronic obstructive pulmonary disease, complicated by bibasilar pneumonia. CoVID screen is pending. He is awake and alert in no acute distress, up ambulating in his room. He is currently maintaining O2 saturations in the 90s on 2 L/m per nasal cannula. He's been afebrile. Blood and sputum cultures reveal no growth to date. White count 32.6. Hemoglobin 12.9. Sodium 138. Potassium 5.2. Creatinine 0.60. He remains on ceftriaxone and azithromycin. DuoNeb inhalations Pulmicort and Perforomist inhalations, IV Solu-Medrol. Objective - Vital Signs Vital signs: Vital Signs Temp 97.0 F L 01/07/20 08:00 Pulse 92 01/07/20 11:38 Resp 22 01/07/20 08:00 BP 155/83 01/07/20 08:00 Pulse Ox 94 L 01/07/20 08:00 Intake & Output 01/06/20 01/07/20 01/07/20 18:59 06:59 18:59 Intake Total 598 1560 118 Balance 598 1560 118 Weight 72.3 kg 83.6 kg Intake: IV 1560 Sodium Chloride 0.9% 1, 1560 000 ml @ 130 mls/hr IV . Q7H42M [facility] Rx#:[id number] Oral 598 118 Other: # Voids 3 1 - Exam GENERAL EXAM: Alert, active, very pleasant 64-year-old gentleman, on 2 L nasal cannula, comfortable in no apparent distress. HEAD: Normocephalic. EYES: Normal reaction of pupils, equal size. NOSE: Clear with pink turbinates. THROAT: No erythema or exudates. NECK: No masses, no JVD. CHEST: No chest wall deformity. LUNGS: Equal air entry with few scattered rhonchi, basilar crackles. CVS: S1 and S2 normal with no audible murmur, regular rhythm. ABDOMEN: No hepatosplenomegaly, normal bowel sounds, no guarding or rigidity. SPINE: No scoliosis or deformity SKIN: No rashes CENTRAL NERVOUS SYSTEM: No focal deficits, tone is normal in all 4 extremities. EXTREMITIES: There is no peripheral edema. No clubbing, no cyanosis. Peripheral pulses are intact. - Labs CBC & Chem 7: 01/07/20 06:56 01/07/20 06:56 Labs: Abnormal Lab Results - Last 24 Hours (Table) 01/06/20 01/06/20 01/07/20 Range/Units 16:39 20:37 06:13 WBC (3.8-10.6) k/uL Hgb (13.0-17.5) gm/dL Neutrophils # (Manual) (1.3-7.7) k/uL Lymphocytes # (Manual) (1.0-4.8) k/uL Potassium (3.5-5.1) mmol/L Creatinine (0.66-1.25) mg/dL Glucose (74-99) mg/dL POC Glucose (mg/dL) 164 H 160 H 137 H (75-99) mg/dL 01/07/20 01/07/20 01/07/20 Range/Units 06:56 06:56 12:04 WBC 32.6 H (3.8-10.6) k/uL Hgb 12.9 L (13.0-17.5) gm/dL Neutrophils # (Manual) 13.04 H (1.3-7.7) k/uL Lymphocytes # (Manual) 19.56 H (1.0-4.8) k/uL Potassium 5.2 H (3.5-5.1) mmol/L Creatinine 0.60 L (0.66-1.25) mg/dL Glucose 128 H (74-99) mg/dL POC Glucose (mg/dL) 124 H (75-99) mg/dL Microbiology - Last 24 Hours (Table) 01/05/20 09:29 Blood Culture - Preliminary Blood No Growth after 48 hours 01/06/20 10:00 Gram Stain - Preliminary Sputum Sputum Culture - Preliminary Assessment and Plan Assessment: 1 Acute exacerbation of chronic obstructive pulmonary disease, complicated by bibasilar pneumonia. CoVID-19 screen pending. 2 Acute hypoxemic respiratory failure secondary to above 3 Leukocytosis secondary to above 4 Chronic and ongoing tobacco dependence 5 Severe chronic obstructive pulmonary disease with FEV1 value is 37% of predicted 6 Hyperlipidemia 7 Hypertension 8 Prior history of pneumonia Plan: The patient was seen and evaluated by Dr. Weston Repeat chest x-ray in a.m. Continue current treatment plan We'll continue to follow I, the cosigning physician, performed a history & physical examination of the patient. Lungs sounds with few scattered rhonchi, crackles in the bases. Maintaining good O2 saturations in the 90s on 2 L/m per nasal cannula. I discussed the assessment and plan of care with my nurse practitioner, Krystin Roberson. I attest to the above note as dictated by her.
[2020-01-07] MEDS ORDERED: FUROSEMIDE 10 MG/ML 2 ML VIAL IV ONE (16:52)
[2020-01-07 17:12] LABS: Glucose,Whole Blood 165 mg/dL (75-99)
[2020-01-07 20:30] LABS: Glucose,Whole Blood 147 mg/dL (75-99)
[2020-01-07] MEDS ORDERED: ATORVASTATIN 40 MG TAB PO SCH (21:00)
--- NOTE | 2020-01-07 23:24 | P.PN ---
Subjective Progress Note Date: 01/07/20 Principal diagnosis: Acute COPD exacerbation Pneumonia Patient is a 64-year-old male with a known history of COPD currently not on home oxygen, hypertension, hyperlipidemia, GERD, previous history of smoking presents to ER with complaints of difficulty in breathing worsening since yesterday. Patient has been having shortness of breath for for the past 2 weeks. Patient was on steroid tapering course and azithromycin with mild improvement symptoms however worsened again since last night. Patient states that he had fever at home. Does have cough mainly dry with occasional greenish sputum. No chest pain. No nausea vomiting or abdominal pain or diarrhea. No recent illnesses otherwise. Patient was tachycardic and T-max 99% on admission. Laboratory data showed WBC 47.0 INR 1.1 Sodium 134 Potassium 3.5, chloride 100, anion gap 10 and BUN 20 creatinine 0.79 Lactic acid 1.3 Magnesium 1.7 Liver enzymes are within normal limits. CRP 59.3 and pro calcitonin 0.28 elevat ed. proBNP 291 and LDH 420, ferritin 315 Chest x-ray showed increase of patchy airspace opacities likely bilateral lung bases. Emphysematous changes. 01/06/2020 Patient is currently sitting in the bed comfortably. Able to walk in the room. Still requiring oxygen via nasal cannula. Wheezing on examination but breathing is easier compared to yesterday. Currently being continued on IV steroids and breathing treatments and also antibiotics in the form of ceftriaxone azithromycin. Patient otherwise denied any complaints of chest pain. No nausea vomiting abdominal pain or diarrhea. No fever no chills. 01/07/2020 Patient is currently sitting in his bed comfortably. No complaints of chest pa in or worsening shortness breath. Patient is still having wet cough with any sputum reduction. Still having some exertional dyspnea. Patient is being continued IV Solu-Medrol and duo nebs. IV fluids have been discontinued. Patient will be started back home blood pressure medications, losartan and also PPI. Pulmonary is following. Current medications reviewed. Objective - Vital Signs Vital signs: Vital Signs Temp 98.0 F 01/07/20 16:00 Pulse 90 01/07/20 20:04 Resp 16 01/07/20 20:04 BP 157/74 01/07/20 16:00 Pulse Ox 94 L 01/07/20 16:00 Intake & Output 01/07/20 01/07/20 01/08/20 06:59 18:59 06:59 Intake Total 1560 598 Balance 1560 598 Weight 83.6 kg Intake: IV 1560 Sodium Chloride 0.9% 1, 1560 000 ml @ 130 mls/hr IV . Q7H42M [facility] Rx#:[id number] Oral 598 Other: Voiding Method Toilet # Voids 1 3 - Exam PHYSICAL EXAMINATION: Patient is lying in the bed comfortably, no acute distress, awake alert and oriented.. HEENT: Normocephalic. Neck is supple. Pupils reactive. Nostrils clear. Oral c avity is moist. Ears reveal no drainage. Neck reveals no JVD, carotid bruits, or thyromegaly. CHEST EXAMINATION: Trachea is central. Symmetrical expansion. Improved bilateral air entry. Scattered crackles. Mild expiratory wheeze... CARDIAC: Normal S1, S2 with no gallops. No murmurs ABDOMEN: Soft. Bowel sounds normal. No organomegaly. No abdominal bruits. Extremities: reveal no edema. No clubbing or cyanosis Neurologically awake, alert, oriented x3 with well-coordinated movements. No focal deficits noted Skin: No rash or skin lesions. Psychiatric: Coperative. Nonsuicidal Musculoskeletal: No joint swelling or deformity. Normal range of motion. - Labs CBC & Chem 7: 01/07/20 06:56 01/07/20 06:56 Labs: Abnormal Lab Results - Last 24 Hours (Table) 01/06/20 01/07/20 01/07/20 Range/Units 20:37 06:13 06:56 WBC 32.6 H (3.8-10.6) k/uL Hgb 12.9 L (13.0-17.5) gm/dL Neutrophils # (Manual) 13.04 H (1.3-7.7) k/uL Lymphocytes # (Manual) 19.56 H (1.0-4.8) k/uL Potassium (3.5-5.1) mmol/L Creatinine (0.66-1.25) mg/dL Glucose (74-99) mg/dL POC Glucose (mg/dL) 160 H 137 H (75-99) mg/dL 01/07/20 01/07/20 01/07/20 Range/Units 06:56 12:04 17:01 WBC (3.8-10.6) k/uL Hgb (13.0-17.5) gm/dL Neutrophils # (Manual) (1.3-7.7) k/uL Lymphocytes # (Manual) (1.0-4.8) k/uL Potassium 5.2 H (3.5-5.1) mmol/L Creatinine 0.60 L (0.66-1.25) mg/dL Glucose 128 H (74-99) mg/dL POC Glucose (mg/dL) 124 H 165 H (75-99) mg/dL Microbiology - Last 24 Hours (Table) 01/05/20 09:29 Blood Culture - Preliminary Blood No Growth after 48 hours 01/06/20 10:00 Gram Stain - Preliminary Sputum Sputum Culture - Preliminary Assessment and Plan Assessment: Acute COPD exacerbation Bibasilar pneumonia with increasing patchy airspace opacities at the lung bases. Sepsis secondary to pneumonia Significantly elevated WBC count Hypertension Hyperlipidemia Ongoing nicotine addiction GERD DVT prophylaxis with heparin subcu Plan: Patient will be continued on antibiotics of follow-up ceftriaxone and azithromycin. Continue with Solu-Medrol and breathing treatments and follow-up closely. Ruled out COVID-19 infection. Repeat CBC and consider oncology evaluation if the WBC count is still significantly elevated. Continue with oxygen therapy. Smoking cessation has been counseled extensively. Pulmonary is on board.. Time with Patient: Greater than 30
[2020-01-07] MEDS: LOSARTAN 50 MG TAB PO SCH (23:43)
[2020-01-08 06:05] LABS: Glucose,Whole Blood 132 mg/dL (75-99)
[2020-01-08] MEDS: INSULIN ASPART (NovoLOG) 100 UNIT/ML VIAL SQ SCH (07:28)
[2020-01-08] MEDS: IPRATROPIUM-ALBUTEROL 3 ML NEB INHALATION SCH ×2 (07:29→11:03)
[2020-01-08] MEDS: BUDESONIDE 1 MG/2 ML NEBU INHALATION SCH (07:29)
[2020-01-08] MEDS: PANTOPRAZOLE 40 MG TABLET PO SCH (07:29)
[2020-01-08] MEDS: FORMOTEROL FUMARATE 20 MCG/2 ML NEBU INHALATION SCH (07:29)
[2020-01-08] MEDS: methylPREDNISolone SOD SUCCI 125 MG/2 ML VIAL IV SCH (07:29)
--- NOTE | 2020-01-08 08:05 | XR ---
EXAMINATION TYPE: XR chest 1V DATE OF EXAM: 01/08/2020 HISTORY: Shortness of breath. COMPARISON: 120 TECHNIQUE: Single view of the chest is submitted. FINDINGS: Demonstrated are scattered senescent parenchymal change. Improving patchy density left lower lobe felt to reflect improving pneumonia. The heart is stable. Hilar and mediastinal structures are within normal limits. Degenerative changes are seen of the dorsal spine. IMPRESSION: 1. Improving patchy density left lower lobe felt to reflect improving pneumonia.
[2020-01-08 09:00] VITALS: BP 150/69; PULSE 109; RESP 18; TEMP 98.1
[2020-01-08] MEDS: HEPARIN SODIUM,PORCINE 5,000 UNIT/ML 1 ML VIAL SQ SCH (09:07)
[2020-01-08] MEDS: LOSARTAN 50 MG TAB PO SCH (09:07)
[2020-01-08] MEDS: SODIUM CHLORIDE 0.9% 1,000 ML IV SCH (09:08)
[2020-01-08] MEDS: AZITHROMYCIN 500 MG TAB PO SCH (09:08)
--- NOTE | 2020-01-08 11:44 | P.DS ---
Providers Date of admission: 01/05/20 10:37 Attending physician: Carmina Livingston Consults: 01/05/20 10:37 Consult Physician Routine Consulting Provider: Gely Dumont Consult Reason/Comments: pneumonia, sepsis Do you want consulting provider notified?: Yes Primary care physician: Khoi Alejo Hospital Course: Diagnoses: Acute COPD exacerbation Bibasilar pneumonia with increasing patchy airspace opacities at the lung bases. Sepsis secondary to pneumonia Significantly elevated WBC count Hypertension Hyperlipidemia Ongoing nicotine addiction GERD Hospital course: Patient is a 64-year-old male with a known history of COPD currently not on home oxygen, hypertension, hyperlipidemia, GERD, previous history of smoking presents to ER with complaints of worsening difficulty in breathing. Found to have bilateral pneumonia on the top of acute COPD exacerbation. Patient has been treated with IV antibiotics with Zithromax and As Well As Solu-Medrol. Patient Received Breathing Treatment. Eventually Showed Interval Improvement in His Symptoms and His Dyspnea Is Improved, He Was Able to Walk in the Hallway with No Exertional Dyspnea As He Was Still in [place]. He Denies Chest Pain, He Has Only Very Minimal Phlegm When He Woke up This Morning but No Significant Coughing. No change in urine or bowel habits. No fever. Patient felt he wants to go home today Patient was cleared for discharge by pulmonology team patient will be discharged with a course of oral antibiotics and Taper steroids, also patient was instructed to follow up with fingernail technician regarding his leukocytosis and leukocytosis, and he agrees Problems and management plan were discussed with the patient and he verbalized understanding and acceptance Patient was found stable and can be discharged home however he needs follow-up as an outpatient. Patient was instructed to follow up with PCP Dr. Alejo within one week and patient agrees. Also patient was instructed to follow up with his student life dean Dr. Dumont in 1-2 weeks and he agrees, patient was instructed to follow up with fingernail technician Dr. Ann as an outpatient in 1-2 weeks and he agrees to call and make appointments, patient first wanted to talk to his PCP Dr. Alejo however here agrees with outpatient referral. Risks including but not limited to cancer, lymphoma/leukemia explained to the patient and he verbalized understanding and acceptance. I called Dr. Alejo I discussed the case with him with recommendation for outpatient follow-up with hematology and he kindly took note of this Gen: patient is a AAOx3, no distress CVS: S1-S2, RRR, no murmur Lungs: B/L CTA, no wheezing Abdomen: soft, no distention, no tenderness, positive bowel sounds Extremity: no leg edema or induration Time spent more than 35 minutes Patient Condition at Discharge: Serious Plan - Discharge Summary Discharge Rx Participant: No New Discharge Prescriptions: New Cefuroxime Axetil [Ceftin] 500 mg PO BID 10 Days #20 tab predniSONE 10 mg PO DIRECTED #40 tab Azithromycin [Zithromax] 500 mg PO DAILY #3 tab Continue Talent-3 Fatty Acids/Fish Oil [Fish Oil 1,000 mg Softgel] 1 cap PO DAILY Atorvastatin [Lipitor] 40 mg PO HS predniSONE [Deltasone] See Taper PO BID Pantoprazole Sodium [Protonix] 40 mg PO DAILY Umeclidinium [place] [Incruse Ellipta] 1 puff INHALATION RT-DAILY Losartan [Cozaar] 50 mg PO DAILY Albuterol Nebulized [Ventolin Nebulized] 2.5 mg INHALATION RT-TID PRN PRN Reason: Shortness Of Breath Fluticasone/Salmeterol [Advair 500-50 Diskus] 1 puff INHALATION RT-BID Albuterol Sulfate [Ventolin HFA] 2 puff INHALATION RT-Q4H PRN #1 inhaler PRN Reason: Shortness Of Breath Discontinued LORazepam [Ativan] 0.5 mg PO BID PRN PRN Reason: Anxiety Cyclobenzaprine [Flexeril] 5 - 10 mg PO TID PRN PRN Reason: Muscle Spasm Discharge Medication List Atorvastatin [Lipitor] 40 mg PO HS 12/05/16 [History] Talent-3 Fatty Acids/Fish Oil [Fish Oil 1,000 mg Softgel] 1 cap PO DAILY 12/05/16 [History] Albuterol Nebulized [Ventolin Nebulized] 2.5 mg INHALATION RT-TID PRN 01/05/20 [History] Fluticasone/Salmeterol [Advair 500-50 Diskus] 1 puff INHALATION RT-BID 01/05/20 [History] Losartan [Cozaar] 50 mg PO DAILY 01/05/20 [History] Pantoprazole Sodium [Protonix] 40 mg PO DAILY 01/05/20 [History] Umeclidinium [place] [Incruse Ellipta] 1 puff INHALATION RT-DAILY 01/05/20 [History] predniSONE [Deltasone] See Taper PO BID 01/05/20 [History] Albuterol Sulfate [Ventolin HFA] 2 puff INHALATION RT-Q4H PRN #1 inhaler 01/08/20 [Rx] Azithromycin [Zithromax] 500 mg PO DAILY #3 tab 01/08/20 [Rx] Cefuroxime Axetil [Ceftin] 500 mg PO BID 10 Days #20 tab 01/08/20 [Rx] predniSONE 10 mg PO DIRECTED #40 tab 01/08/20 [Rx] Follow up Appointment(s)/Referral(s): Rafita Ann MD [STAFF PHYSICIAN] - 2 Weeks (Leukocytosis) Gely Dumont MD [STAFF PHYSICIAN] - 01/25/20 1:00 pm (with ) Khoi Alejo DO [Primary Care Provider] - 01/11/20 2:20 pm Patient Instructions/Handouts: COPD (Chronic Obstructive Pulmonary Disease) (DC), Community Acquired Pneumonia (DC) Activity/Diet/Wound Care/Special Instructions: Low carbohydrate diet Activities Limited till you see your doctor Discharge Disposition: HOME SELF-CARE
[2020-01-08 11:45] LABS: Basophils # (A) 0.2 k/uL (0-0.2); Basophils % (A) 1 %; Eosinophils % (A) 0 %; HCT 43.5 % (39.0-53.0); HGB 13.4 gm/dL (13.0-17.5); Lymphocytes % (A) 65 %; MCH 27.8 pg (25.0-35.0); MCHC 30.9 g/dL (31.0-37.0); MCV 89.8 fL (80.0-100.0); Mean Platelet Volume 7.1; Monocytes # (A) 0.7 k/uL (0-1.0); Monocytes % (A) 2 %; Neutrophils # (A) 10.1 k/uL (1.3-7.7); Neutrophils % (A) 30 %; Platelet Count 380 k/uL (150-450); RBC 4.84 m/uL (4.30-5.90); RDW 13.2 % (11.5-15.5); WBC 34.2 k/uL (3.8-10.6)
[2020-01-08 11:47] LABS: Lymphocytes # (A) 22.2 k/uL (1.0-4.8)
[2020-01-08 12:20] LABS: Anisocytosis (M) Present; Poikilocytosis (M) Present
--- NOTE | 2020-01-08 15:16 | P.PN ---
Subjective Progress Note Date: 01/08/20 Principal diagnosis: Acute exacerbation of COPD complicated bibasilar pneumonia right greater than left On 01/08/2020 patient seen in follow-up on selective care unit. Of note patient was admitted to the hospital on 01/05/2020 when he presented to the ER for evaluation of shortness of breath, cough, phlegm production, chest tightness, wheezing that had been going on for 2 weeks. He was treated on an outpatient basis with oral steroids and azithromycin which did not help his symptoms. His admission chest x-ray showed patchy opacities at both lung bases right greater than left on the background of chronic emphysematous changes. Patient was treated with combination of azithromycin and Rocephin, bronchodilators and IV steroids, he is improving. He does have underlying FEV1 of 37% of predicted, and patient follows with Dr. Dumont in the pulmonary clinic. Today's follow- up chest x-ray was reviewed showing improving patchy density at the left lower lobe reflecting improving pneumonia, clinically patient is stable, he is on room air pulse ox of 90-92%, hemodynamically stable, he is afebrile, he is tolerating ambulation. His coronavirus PCR was negative. Hasn't blood and sputum cultures showed no growth, his white count has improved although he still remains quite elevated at 34.2, he didn't come down from 47 on admission. His been afebrile. Objective - Vital Signs Vital signs: Vital Signs Temp 98.1 F 01/08/20 08:10 Pulse 109 H 01/08/20 08:10 Resp 18 01/08/20 08:10 BP 150/69 01/08/20 08:10 Pulse Ox 90 L 01/08/20 08:10 Intake & Output 01/07/20 01/08/20 01/08/20 18:59 06:59 18:59 Intake Total 598 240 Balance 598 240 Weight 85 kg Intake: Oral 598 240 Other: Voiding Method Toilet Toilet # Voids 3 1 1 - Exam GENERAL EXAM: Alert, very pleasant, 64-year-old white male, on room air, with a pulse ox of 90-92% comfortable in no apparent distress. HEAD: Normocephalic/atraumatic. EYES: Normal reaction of pupils, equal size. Conjunctiva pink, sclera white. NOSE: Clear with pink turbinates. THROAT: No erythema or exudates. NECK: No masses, no JVD, no thyroid enlargement, no adenopathy. CHEST: No chest wall deformity. Symmetrical expansion. LUNGS: Equal air entry with no crackles, wheeze, rhonchi or dullness. CVS: Regular rate and rhythm, normal S1 and S2, no gallops, no murmurs, no rubs ABDOMEN: Soft, nontender. No hepatosplenomegaly, normal bowel sounds, no guarding or rigidity. EXTREMITIES: No clubbing, no edema, no cyanosis, 2+ pulses and upper and lower extremities. MUSCULOSKELETAL: Muscle strength and tone normal. SPINE: No scoliosis or deformity SKIN: No rashes CENTRAL NERVOUS SYSTEM: Alert and oriented -3. No focal deficits, tone is normal in all 4 extremities. PSYCHIATRIC: Alert and oriented -3. Appropriate affect. Intact judgment and insight. - Labs CBC & Chem 7: 01/08/20 11:07 01/07/20 06:56 Labs: Abnormal Lab Results - Last 24 Hours (Table) 01/07/20 01/07/20 01/08/20 Range/Units 17:01 20:28 06:03 WBC (3.8-10.6) k/uL MCHC (31.0-37.0) g/dL Neutrophils # (1.3-7.7) k/uL Lymphocytes # (1.0-4.8) k/uL POC Glucose (mg/dL) 165 H 147 H 132 H (75-99) mg/dL 01/08/20 Range/Units 11:07 WBC 34.2 H (3.8-10.6) k/uL MCHC 30.9 L (31.0-37.0) g/dL Neutrophils # 10.1 H (1.3-7.7) k/uL Lymphocytes # 22.2 H (1.0-4.8) k/uL POC Glucose (mg/dL) (75-99) mg/dL Microbiology - Last 24 Hours (Table) 01/06/20 10:00 Gram Stain - Final Sputum Sputum Culture - Final 01/05/20 09:29 Blood Culture - Preliminary Blood No Growth after 72 hours Assessment and Plan Plan: Assessment: #1. Acute exacerbation of chronic obstructive pulmonary disease, complicated by bibasilar pneumonia, COVID 19 screen negative #2. Acute hypoxemic respiratory failure secondary to the above, improved #3. Leukocytosis secondary to the above, improved since admission, however still remains elevated at 34.2 on January 08, 2020, we will obtain outpatient follow-up CBC and have the patient follow-up with hematology #4. Chronic and ongoing tobacco dependence #5. Severe chronic obstructive pulmonary disease with FEV1 value of 37% of predicted, stage III, not oxygen dependent at baseline #6. Hyperlipidemia #7. Hypertension #8. Prior history of pneumonia Plan: Today's chest x-ray has been reviewed with Dr. Dumont, patient was seen and evaluated by Dr. Dumont, stable for discharge from pulmonary perspective, he has been afebrile, all culture data remains negative, tolerating ambulation. Patient will have a outpatient CBC to follow-up on his white blood cell count elevation, and he will have outpatient evaluation by hematology, we would like to see the patient in follow-up in 7-10 days for repeat chest x-ray I performed a history & physical examination of the patient and discussed their management with my nurse practitioner, Maria Eugenia Lechuga. I reviewed the nurse practitioner's note and agree with the documented findings and plan of care. Lung sounds are positive for diminished breath sounds The findings and the impression was discussed with the patient. I attest to the documentation by the nurse practitioner. Time with Patient: Less than 30
== END 2020-01-08 12:46 | disposition home or self-care (01) | DRG 871 ==
LOC: EC 08:15 → 3SCARD 10:37
PROVIDERS: ADMIT Internal Medicine; ATTEND Internal Medicine
DX: A41.9 Sepsis, unspecified organism (principal); J18.9 Pneumonia, unspecified organism; J96.01 Acute respiratory failure with hypoxia; J44.1 Chronic obstructive pulmonary disease with (acute) exacerbation; J44.0 Chronic obstructive pulmonary disease with (acute) lower respiratory infection; E78.5 Hyperlipidemia, unspecified; I10 Essential (primary) hypertension; F17.200 Nicotine dependence, unspecified, uncomplicated; K21.9 Gastro-esophageal reflux disease without esophagitis; Z20.828 Contact with and (suspected) exposure to other viral communicable diseases; Z79.899 Other long term (current) drug therapy; Z88.0 Allergy status to penicillin; Z88.8 Allergy status to other drugs, medicaments and biological substances; Z87.01 Personal history of pneumonia (recurrent); Z82.49 Family history of ischemic heart disease and other diseases of the circulatory system; Z82.5 Family history of asthma and other chronic lower respiratory diseases
CPT/HCPCS: 36415; 71045; 71046; 80048; 80053; 82728; 83605; 83615; 83735; 83880; 84145; 85025; 85610; 85730; 86140; 87040; 87070; 87205; 93005; 94640; 94760; 96365; 96375; 99291

== ENCOUNTER → 2020-01-24 | Outpatient (CLI) | payer MEDICARE ==
--- NOTE | 2020-01-24 11:54 | XR ---
EXAMINATION TYPE: XR abdomen 2V DATE OF EXAM: 01/24/2020 CLINICAL HISTORY: Cystitis, generalized abdominal pain, dysuria for 3 nights. TECHNIQUE: Supine and upright views of the abdomen are obtained. COMPARISON: None. FINDINGS: Gas is seen in nondistended stomach. Scattered gas is seen in non-distended small bowel loo ps. Gas and fecal material is seen in non-distended colon. The amount of colonic fecal material is p rominent in the right and transverse colon. There is no visceromegaly, pneumoperitoneum, or abnormal calcification appreciated. The lung bases are clear and the osseous structures are intact. Some vas cular calcification and phleboliths in the pelvis are present. IMPRESSION: Overall nonobstructive bowel gas pattern. Moderate proximal to mid colonic fecal stasis is felt present.
== END | disposition home or self-care (01) ==
LOC: RADXRYALE 11:36
PROVIDERS: ATTEND Physician Assistant Medical
DX: R14.3 Flatulence (principal); K56.41 Fecal impaction; Z12.5 Encounter for screening for malignant neoplasm of prostate
CPT/HCPCS: 74019

== ENCOUNTER → 2020-02-05 | Outpatient (CLI) | payer MEDICARE ==
[2020-02-05 11:50] LABS: African American GFR (CKD) >90 (>60 ml/min/1.73 sqM); Blood Urea Nitrogen 8 mg/dL (9-20); Non-African American GFR(CKD) >90 (>60 ml/min/1.73 sqM)
--- NOTE | 2020-02-06 19:14 | CT ---
EXAMINATION TYPE: CT abdomen pelvis w con DATE OF EXAM: 02/05/2020 COMPARISON: Low-dose lung CT 05/20/2019 HISTORY: Dysuria. CT DLP: 605.9 mGycm Automated exposure control for dose reduction was used. TECHNIQUE: Helical acquisition of images was performed from the lung bases through the pelvis. CONTRAST: Performed with Oral Contrast and with IV Contrast, patient injected with 100 mL of Isovue M300. FINDINGS: LUNG BASES: There is newly demonstrated multifocal nodular opacities of the bilateral lung bases and scattered groundglass opacities. No pleural effusion. LIVER: Right posterior 7.2 x 8.2 cm hypodense lesion with discontinuous peripheral nodular enhancemen t with incomplete filling on delayed image. Too small to characterize hypodense lesion at the dome. BILIARY SYSTEM: Normal. PANCREAS: Normal. SPLEEN: Normal. ADRENALS: Normal. KIDNEYS: Normal renal enhancement and excretion. Too small to characterize hypodense lesion of the le ft kidney. No hydronephrosis or hydroureter. BOWEL: Small hiatal hernia. No evidence of bowel obstruction or thickening. PERITONEUM: No free air is visualized. No free fluid. ADENOPATHY: 1.3 cm perigastric lymph node (3:17) unchanged versus 05/20/2019 CT comparison. PELVIS: Urinary bladder normal. Prostamegaly. VASCULATURE: No abdominal aortic aneurysm. Infrarenal abdominal aortic ectasia measures up to 1.9 cm . Calcified and noncalcified atherosclerotic disease. MUSCULOSKELETAL: Degenerative changes of the spine. IMPRESSION: 1. No findings to explain patient's dysuria. 2. Prostatomegaly. 3. Multifocal nodular opacities of the bilateral lung bases new from 05/20/2019 comparison. Findings may represent infectious or inflammatory etiology. Short-term follow-up CT chest is recommended. 4. 8.2 cm hepatic hemangioma. 5. Prominent perigastric lymph node unchanged from 05/20/2019.
== END | disposition home or self-care (01) ==
LOC: RADCTMAIN 11:07
PROVIDERS: ATTEND Family Medicine
DX: C91.10 Chronic lymphocytic leukemia of B-cell type not having achieved remission (principal); N40.0 Benign prostatic hyperplasia without lower urinary tract symptoms; D18.03 Hemangioma of intra-abdominal structures; E78.2 Mixed hyperlipidemia; I10 Essential (primary) hypertension
CPT/HCPCS: 82565; 84520; 74177; 36415; Q9967 ×2

== ENCOUNTER → 2020-02-27 | Outpatient (CLI) | payer MEDICARE ==
--- NOTE | 2020-02-27 10:39 | ECHOF ---
Referral Reason:[id number] SOB MEASUREMENTS -------- HEIGHT: 180.3 cm WEIGHT: 81.6 kg BP: IVSd: 0.9 cm (0.6 - 1.1) LVIDd: 4.5 cm (3.9 - 5.3) LVPWd: 1.3 cm (0.6 - 1.1) IVSs: 1.4 cm LVIDs: 2.9 cm LVPWs: 1.4 cm RVIDd: 3.6 cm (< 3.3) LAESV Index (A-L): 25.46 ml/m Ao Diam: 2.8 cm (2.0 - 3.7) AV Cusp: 1.9 cm (1.5 - 2.6) EPSS: 0.5 cm MV E Kain: 0.58 m/s MV DecT: 299 ms MV A Kain: 0.73 m/s MV E/A Ratio: 0.79 AV maxP.85 mmHg AV meanP.46 mmHg RAP: 5.00 mmHg RVSP: 22.12 mmHg MV EF SLOPE: 86.32 mm/s (70 - 150) MV EXCURSION: 23.23 mm (> 18.000) FINDINGS -------- This was a technically adequate study. The left ventricular size is normal. There is borderline concentric left ventricular hypertrophy. Overall left ventricular systolic function is normal with, an EF between 55 - 60 %. The diastolic filling pattern is normal for the age of the patient 4.42. The right ventricle is mildly enlarged. Normal LA size by volume 22+/-6 ml/m2. The right atrium is mildly enlarged. Interatrial and interventricular septum intact. The aortic valve was not well visualized. There is no evidence of aortic regurgitation. There is mild aortic stenosis present. Peak/mean gradient across the Aortic Valve is 16.85mmHg / 10.46mmHg. There is trace to mild mitral regurgitation. Mild tricuspid regurgitation present. There is no evidence of pulmonary hypertension. The right v entricular systolic pressure, as measured by Doppler, is 22.12mmHg. The pulmonic valve was not well visualized. There is no pulmonic regurgitation present. The aortic root size is normal. Normal inferior vena cava with normal inspiratory collapse consistent with estimated right atrial pre ssure of 5 mmHg. There is no pericardial effusion. CONCLUSIONS -------- 1. The left ventricular size is normal. 2. There is borderline concentric left ventricular hypertrophy. 3. Overall left ventricular systolic function is normal with, an EF between 55 - 60 %. 4. The diastolic filling pattern is normal for the age of the patient 4.42 5. The right ventricle is mildly enlarged. 6. The right atrium is mildly enlarged. 7. There is mild aortic stenosis present. 8. There is trace to mild mitral regurgitation. 9. Mild tricuspid regurgitation present. PICK PULLING MACHINE OPERATOR: Kyra Collazo RDCS
== END | disposition home or self-care (01) ==
LOC: RADECHMAIN 08:14
PROVIDERS: ATTEND Family Medicine
DX: I08.3 Combined rheumatic disorders of mitral, aortic and tricuspid valves (principal); I10 Essential (primary) hypertension
CPT/HCPCS: 93306

== ENCOUNTER 2020-03-24 20:27 | Inpatient (IN) | payer MEDICARE ==
--- NOTE | 2020-03-24 21:03 | ED ---
SOB HPI - General Chief Complaint: Shortness of Breath Stated Complaint: EVIE Time Seen by Provider: 03/24/20 20:30 Source: EMS Mode of arrival: EMS Limitations: no limitations - History of Present Illness Initial Comments: Patient is a 64-year-old male with past medical history of COPD who presents to the emergency department with reported shortness of breath. He states that he ended up sustaining a fall yesterday. Hit the right side of his chest wall on the wooden floor. He has had pain however was not having any issues with his breathing until today. reports that over the course of the day he became more short of breath. Suddenly this evening him very diaphoretic and was struggling to breathe therefore his called EMS. Upon arrival they found the patient had significant work of breathing. His saturations were in the high 80s. They placed him on CPAP and brought him into the hospital. He denies any recent fevers, chills, sick contacts. Patient does not use oxygen at home. Does have prescriptions for inhalers for which she utilized without improvement in his breathing. He denies any chest pain. No history of heart failure. No history of DVTs or PEs. No lower extremity swelling. Patient admits to a chronic cough. No other alleviating, precipitating or modifying factors - Related Data Home Medications Medication Instructions Recorded Confirmed Atorvastatin [Lipitor] 40 mg PO HS 12/05/16 03/24/20 [place]-3 Fatty Acids/Fish Oil [Fish 1 cap PO DAILY 12/05/16 03/24/20 Oil 1,000 mg Softgel] Albuterol Nebulized [Ventolin 2.5 mg INHALATION RT-TID PRN 01/05/20 03/24/20 Nebulized] Fluticasone/Salmeterol [Advair 1 puff INHALATION RT-BID 01/05/20 03/24/20 500-50 Diskus] Losartan [Cozaar] 50 mg PO DAILY 01/05/20 03/24/20 Pantoprazole Sodium [Protonix] 40 mg PO DAILY 01/05/20 03/24/20 Furosemide [Lasix] 20 mg PO DAILY 03/24/20 03/24/20 Previous Rx's Medication Instructions Recorded Albuterol Sulfate [Ventolin HFA] 2 puff INHALATION RT-Q4H PRN #1 01/08/20 inhaler Azithromycin [Zithromax] 500 mg PO DAILY #3 tab 03/26/20 Cefuroxime Axetil [Ceftin] 500 mg PO BID 7 Days #14 tab 03/26/20 predniSONE 10 mg PO DIRECTED #40 tab 03/26/20 Allergies Allergy/AdvReac Type Severity Reaction Status Date / Time naproxen Allergy Itching Verified 03/24/20 21:26 Penicillins Allergy Unknown Verified 03/24/20 21:26 Childhood Review of Systems ROS Statement: Those systems with pertinent positive or pertinent negative responses have been documented in the HPI. ROS Other: All systems not noted in ROS Statement are negative. Past Medical History Past Medical History: COPD, GERD/Reflux, Hyperlipidemia, Hypertension, Pneumonia, Sleep Apnea/CPAP/BIPAP Additional Past Medical History / Comment(s): Bronchitis, acute hypoxic hepercarbic respiratory failure/bipap, occasional lower back pain, benign colon polypectomy History of Any Multi-Drug Resistant Organisms: None Reported Past Surgical History: Unable to Obtain Additional Past Surgical History / Comment(s): colonoscopy with benign polypectomy Past Anesthesia/Blood Transfusion Reactions: No Reported Reaction Past Psychological History: Anxiety Smoking Status: Former smoker - Past Family History Father Family Medical History: Coronary Artery Disease (CAD) Additional Family Medical History / Comment(s): Father at the age of 74 yrs. Mother Family Medical History: Coronary Artery Disease (CAD) Additional Family Medical History / Comment(s): Mother had CABG. She in her 70s. General Exam Limitations: no limitations General appearance: anxious, in distress Head exam: Present: atraumatic, normocephalic, normal inspection ENT exam: Present: normal exam, mucous membranes moist Respiratory exam: Present: respiratory distress, rales, accessory muscle use, decreased breath sounds Cardiovascular Exam: Present: normal rhythm, tachycardia, normal heart sounds. Absent: systolic murmur, diastolic murmur, rubs, gallop, clicks GI/Abdominal exam: Present: soft, normal bowel sounds. Absent: distended, tenderness, guarding, rebound, rigid Neurological exam: Present: alert, oriented X3, CN II-XII intact Skin exam: Present: diaphoretic Course Vital Signs 03/24/20 03/24/20 03/25/20 20:30 22:01 00:05 Temperature 98.6 F Pulse Rate 115 H 105 H 96 Pulse Rate [ Pulse Oximetery ] Respiratory 38 H 27 H Rate Blood Pressure 118/83 139/81 O2 Sat by Pulse 95 100 Oximetry 03/25/20 03/25/20 03/25/20 00:20 00:37 00:45 Temperature 98.5 F 98.1 F 98.5 F Pulse Rate 96 105 H Pulse Rate [ 109 H Pulse Oximetery ] Respiratory 24 18 22 Rate Blood Pressure 154/86 O2 Sat by Pulse 100 94 L 96 Oximetry Medical Decision Making - Medical Decision Making Upon arrival patient was placed into trauma bay 1. A thorough history and physical exam was performed. Patient was transitioned from the CPAP to the BiPAP. IV access is established. Laboratory studies were conducted. Patient does have a white count of 18.5. A gas is obtained on the patient which demonstrates a CO2 of 36 and an O2 of 60 after the patient had been on the BiPAP for approximately an hour. Because of this we did increase his FiO2 to 60%. Patient was sent over for a CT of his chest to rule out PE. CTA demonstrates patchy infiltrate and atelectasis at the lung bases. No evidence of pulmonary embolism. Pulmonary emphysema. The patient is reevaluated and remains comfortable in exam room. He is trialed off BiPAP and does well. I discussed the diagnosis, differential and treatment options. Because the patient's leukocytosis with concerning opacities he is given a dose of Rocephin and azithromycin. I recommend hospital admission for which patient did agree to. Patient will be admitted to [facility]. Pulmonary placed on consult. Patient remained in stable condition awaiting a bed on the floor - Lab Data Result diagrams: 03/26/20 07:22 03/26/20 07:22 Lab Results 03/24/20 03/24/20 03/24/20 Range/Units 20:39 20:39 20:39 WBC 18.5 H (3.8-10.6) k/uL RBC 4.92 (4.30-5.90) m/uL Hgb 14.7 (13.0-17.5) gm/dL Hct 44.0 (39.0-53.0) % MCV 89.4 (80.0-100.0) fL MCH 29.8 (25.0-35.0) pg MCHC 33.4 (31.0-37.0) g/dL RDW 14.2 (11.5-15.5) % Plt Count 191 (150-450) k/uL Neutrophils % 69 % Lymphocytes % 23 % Monocytes % 5 % Eosinophils % 0 % Basophils % 1 % Neutrophils # 12.8 H (1.3-7.7) k/uL Lymphocytes # 4.3 (1.0-4.8) k/uL Monocytes # 0.9 (0-1.0) k/uL Eosinophils # 0.1 (0-0.7) k/uL Basophils # 0.1 (0-0.2) k/uL PT 10.3 (9.0-12.0) sec INR 1.0 (<1.2) APTT 23.3 (22.0-30.0) sec Sample Site ABG pH (7.35-7.45) ABG pCO2 (35-45) mmHg ABG pO2 (83-108) mmHg ABG HCO3 (21-25) mmol/L ABG Total CO2 (19-24) mmol/L ABG O2 Saturation (94-97) % ABG Base Excess mmol/L Yonny Test FiO2 % Sodium 136 L (137-145) mmol/L Potassium 4.0 (3.5-5.1) mmol/L Chloride 106 (98-107) mmol/L Carbon Dioxide 25 (22-30) mmol/L Anion Gap 5 mmol/L BUN 13 (9-20) mg/dL Creatinine 0.90 (0.66-1.25) mg/dL Est GFR (CKD-EPI)AfAm >90 (>60 ml/min/1.73 sqM) Est GFR (CKD-EPI)NonAf 89 (>60 ml/min/1.73 sqM) Glucose 120 H (74-99) mg/dL Plasma Lactic Acid Jeramy (0.7-2.0) mmol/L Calcium 8.6 (8.4-10.2) mg/dL Magnesium 1.4 L (1.6-2.3) mg/dL Total Bilirubin 1.0 (0.2-1.3) mg/dL AST 19 (17-59) U/L ALT 14 (4-49) U/L Alkaline Phosphatase 50 (38-126) U/L Troponin I (0.000-0.034) ng/mL NT-Pro-B Natriuret Pep pg/mL Total Protein 6.3 (6.3-8.2) g/dL Albumin 4.1 (3.5-5.0) g/dL 03/24/20 03/24/20 03/24/20 Range/Units 20:39 20:39 20:39 WBC (3.8-10.6) k/uL RBC (4.30-5.90) m/uL Hgb (13.0-17.5) gm/dL Hct (39.0-53.0) % MCV (80.0-100.0) fL MCH (25.0-35.0) pg MCHC (31.0-37.0) g/dL RDW (11.5-15.5) % Plt Count (150-450) k/uL Neutrophils % % Lymphocytes % % Monocytes % % Eosinophils % % Basophils % % Neutrophils # (1.3-7.7) k/uL Lymphocytes # (1.0-4.8) k/uL Monocytes # (0-1.0) k/uL Eosinophils # (0-0.7) k/uL Basophils # (0-0.2) k/uL PT (9.0-12.0) sec INR (<1.2) APTT (22.0-30.0) sec Sample Site ABG pH (7.35-7.45) ABG pCO2 (35-45) mmHg ABG pO2 (83-108) mmHg ABG HCO3 (21-25) mmol/L ABG Total CO2 (19-24) mmol/L ABG O2 Saturation (94-97) % ABG Base Excess mmol/L Yonny Test FiO2 % Sodium (137-145) mmol/L Potassium (3.5-5.1) mmol/L Chloride (98-107) mmol/L Carbon Dioxide (22-30) mmol/L Anion Gap mmol/L BUN (9-20) mg/dL Creatinine (0.66-1.25) mg/dL Est GFR (CKD-EPI)AfAm (>60 ml/min/1.73 sqM) Est GFR (CKD-EPI)NonAf (>60 ml/min/1.73 sqM) Glucose (74-99) mg/dL Plasma Lactic Acid Jeramy 1.4 (0.7-2.0) mmol/L Calcium (8.4-10.2) mg/dL Magnesium (1.6-2.3) mg/dL Total Bilirubin (0.2-1.3) mg/dL AST (17-59) U/L ALT (4-49) U/L Alkaline Phosphatase (38-126) U/L Troponin I <0.012 (0.000-0.034) ng/mL NT-Pro-B Natriuret Pep 216 pg/mL Total Protein (6.3-8.2) g/dL Albumin (3.5-5.0) g/dL 03/24/20 Range/Units 21:38 WBC (3.8-10.6) k/uL RBC (4.30-5.90) m/uL Hgb (13.0-17.5) gm/dL Hct (39.0-53.0) % MCV (80.0-100.0) fL MCH (25.0-35.0) pg MCHC (31.0-37.0) g/dL RDW (11.5-15.5) % Plt Count (150-450) k/uL Neutrophils % % Lymphocytes % % Monocytes % % Eosinophils % % Basophils % % Neutrophils # (1.3-7.7) k/uL Lymphocytes # (1.0-4.8) k/uL Monocytes # (0-1.0) k/uL Eosinophils # (0-0.7) k/uL Basophils # (0-0.2) k/uL PT (9.0-12.0) sec INR (<1.2) APTT (22.0-30.0) sec Sample Site Right Radial ABG pH 7.45 (7.35-7.45) ABG pCO2 36 (35-45) mmHg ABG pO2 60 L (83-108) mmHg ABG HCO3 24 (21-25) mmol/L ABG Total CO2 25 H (19-24) mmol/L ABG O2 Saturation 93.2 L (94-97) % ABG Base Excess 0.3 mmol/L Yonny Test Yes FiO2 40 % Sodium (137-145) mmol/L Potassium (3.5-5.1) mmol/L Chloride (98-107) mmol/L Carbon Dioxide (22-30) mmol/L Anion Gap mmol/L BUN (9-20) mg/dL Creatinine (0.66-1.25) mg/dL Est GFR (CKD-EPI)AfAm (>60 ml/min/1.73 sqM) Est GFR (CKD-EPI)NonAf (>60 ml/min/1.73 sqM) Glucose (74-99) mg/dL Plasma Lactic Acid Jeramy (0.7-2.0) mmol/L Calcium (8.4-10.2) mg/dL Magnesium (1.6-2.3) mg/dL Total Bilirubin (0.2-1.3) mg/dL AST (17-59) U/L ALT (4-49) U/L Alkaline Phosphatase (38-126) U/L Troponin I (0.000-0.034) ng/mL NT-Pro-B Natriuret Pep pg/mL Total Protein (6.3-8.2) g/dL Albumin (3.5-5.0) g/dL - EKG Data EKG Comments: EKG demonstrates a sinus tachycardia with a ventricular rate of 108. TX interval 116. QRS 80. QTC of 434. No acute ST segment elevations or depressions Critical Care Time Critical Care Time: Yes Critical Care Time: 32 minutes Disposition Clinical Impression: Acute exacerbation of chronic obstructive airways disease, BiPAP (biphasic positive airway pressure) dependence Disposition: ADMITTED IP TO THIS HOSP Condition: Stable Is patient prescribed a controlled substance at d/c from ED?: No Decision to Admit Reason: Admit from EC Decision Date: 03/24/20 Decision Time: 23:53
--- NOTE | 2020-03-24 21:04 | XR ---
EXAMINATION TYPE: XR chest 1V portable DATE OF EXAM: 03/24/2020 COMPARISON: 01/25/2020 HISTORY: Short of breath TECHNIQUE: FINDINGS: There is no heart failure nor confluent pneumonic infiltrate. Costophrenic angles are clear . Heart size is normal. There are chest leads. Thoracic aorta is atheromatous. IMPRESSION: No active cardiopulmonary disease. No adverse change.
[2020-03-24 21:07] LABS: Partial Thromboplastin Time 23.3 sec (22.0-30.0); Prothrombin Time 10.3 sec (9.0-12.0)
[2020-03-24 21:08] LABS: Basophils # (A) 0.1 k/uL (0-0.2); Basophils % (A) 1 %; Eosinophils # (A) 0.1 k/uL (0-0.7); Eosinophils % (A) 0 %; HGB 14.7 gm/dL (13.0-17.5); Lymphocytes # (A) 4.3 k/uL (1.0-4.8); Lymphocytes % (A) 23 %; MCH 29.8 pg (25.0-35.0); MCHC 33.4 g/dL (31.0-37.0); MCV 89.4 fL (80.0-100.0); Mean Platelet Volume 6.9; Monocytes # (A) 0.9 k/uL (0-1.0); Monocytes % (A) 5 %; Neutrophils # (A) 12.8 k/uL (1.3-7.7); Neutrophils % (A) 69 %; Platelet Count 191 k/uL (150-450); RBC 4.92 m/uL (4.30-5.90); RDW 14.2 % (11.5-15.5); WBC 18.5 k/uL (3.8-10.6)
[2020-03-24 21:10] LABS: ALT 14 U/L (4-49); AST 19 U/L (17-59); African American GFR (CKD) >90 (>60 ml/min/1.73 sqM); Albumin 4.1 g/dL (3.5-5.0); Alkaline Phosphatase 50 U/L (38-126); Anion Gap 5 mmol/L; Blood Urea Nitrogen 13 mg/dL (9-20); Calcium 8.6 mg/dL (8.4-10.2); Carbon Dioxide 25 mmol/L (22-30); Chloride 106 mmol/L (98-107); Glucose 120 mg/dL (74-99); Magnesium 1.4 mg/dL (1.6-2.3); Non-African American GFR(CKD) 89 (>60 ml/min/1.73 sqM); Sodium 136 mmol/L (137-145); Total Protein 6.3 g/dL (6.3-8.2)
[2020-03-24] MEDS ORDERED: cefTRIAXone IN SWFI 1,000 MG/10 ML SYRINGE IVP STA (21:34)
[2020-03-24] MEDS ORDERED: AZITHROMYCIN 500 MG in SODIUM CHLORIDE 0.9% 250 ML IVPB STA (21:34)
[2020-03-24] MEDS ORDERED: IPRATROPIUM-ALBUTEROL 3 ML NEB INHALATION STA (21:35)
[2020-03-24 21:41] LABS: Allen Test Performed? Yes
[2020-03-24 21:43] LABS: ABG Base Excess 0.3 mmol/L; ABG HCO3 24 mmol/L (21-25); ABG Oxygen Saturation 93.2 % (94-97); ABG PCO2 36 mmHg (35-45); ABG PH 7.45 (7.35-7.45); ABG PO2 60 mmHg (83-108); ABG TCO2 25 mmol/L (19-24)
[2020-03-24] MEDS ORDERED: fentaNYL (PF) 50 MCG/ML 2 ML AMP IVP STA (22:08)
--- NOTE | 2020-03-24 23:41 | CT ---
EXAMINATION TYPE: CT chest angio for PE DATE OF EXAM: 03/24/2020 COMPARISON: None HISTORY: dyspnea CT DLP: 352.4 mGycm Automated exposure control for dose reduction was used. CONTRAST: Performed with IV Contrast, patient injected with 60 mL of Isovue 370. There are 3-D post processed images. There is no mediastinal adenopathy. There are a few paratracheal lymph nodes that measure up to 1 cm. There are no hilar masses. Heart size is normal. There is no pericardial effusion. There is 8 cm x 5 cm hypodense area in the posterior right lobe of the liver with some nodular peripheral enhancement consistent with large hemangioma. The bile ducts are not dilated. There is some patchy infiltrate and atelectasis at both lung bases. There is mild pulmonary emphysema . The thoracic aorta is intact. There is no aneurysm or dissection. Ascending aorta measures 3.4 cm. There is normal contrast opacification of the pulmonary arteries. There are no filling defects. IMPRESSION: There is some patchy infiltrate and atelectasis at the lung bases. No evidence of pulmonary embolism. Pulmonary emphysema. Hepatic hemangioma unchanged.
[2020-03-24] MEDS ORDERED: NALOXONE 0.4 MG/ML 1 ML VIAL IV PRN (23:54)
[2020-03-24] MEDS ORDERED: HYDROmorphone 1 MG/ML 1 ML SYRINGE IVP STA (23:56)
[2020-03-25] MEDS: IPRATROPIUM-ALBUTEROL 3 ML NEB INHALATION SCH ×6 (01:02→23:11)
[2020-03-25] MEDS ORDERED: ALBUTEROL NEBULIZED 2.5 MG/3 ML INHALATION PRN ×2 (02:05)
[2020-03-25] MEDS: ACETAMINOPHEN TAB 325 MG TAB PO PRN ×2 (02:18→09:45)
[2020-03-25 03:16] LABS: Basophils # (A) 0.1 k/uL (0-0.2); Basophils % (A) 0 %; Eosinophils % (A) 0 %; HCT 44.8 % (39.0-53.0); HGB 14.2 gm/dL (13.0-17.5); Lymphocytes # (A) 3.8 k/uL (1.0-4.8); Lymphocytes % (A) 18 %; MCH 28.9 pg (25.0-35.0); MCHC 31.7 g/dL (31.0-37.0); MCV 91.1 fL (80.0-100.0); Mean Platelet Volume 7.1; Monocytes # (A) 0.9 k/uL (0-1.0); Monocytes % (A) 4 %; Neutrophils # (A) 16.5 k/uL (1.3-7.7); Neutrophils % (A) 76 %; Platelet Count 199 k/uL (150-450); RBC 4.91 m/uL (4.30-5.90); RDW 14.7 % (11.5-15.5); WBC 21.7 k/uL (3.8-10.6)
[2020-03-25 03:42] LABS: African American GFR (CKD) >90 (>60 ml/min/1.73 sqM); Anion Gap 7 mmol/L; Blood Urea Nitrogen 13 mg/dL (9-20); Calcium 8.6 mg/dL (8.4-10.2); Carbon Dioxide 23 mmol/L (22-30); Chloride 104 mmol/L (98-107); Glucose 171 mg/dL (74-99); Non-African American GFR(CKD) >90 (>60 ml/min/1.73 sqM); Potassium 4.1 mmol/L (3.5-5.1); Sodium 134 mmol/L (137-145)
[2020-03-25] MEDS ORDERED: SYMBICORT 160-4.5 MCG INHALER INHALATION SCH (08:00)
[2020-03-25] MEDS: LOSARTAN 50 MG TAB PO SCH (09:45)
[2020-03-25] MEDS: PANTOPRAZOLE 40 MG TABLET PO SCH (09:45)
--- NOTE | 2020-03-25 10:11 | P.HPIM ---
History of Present Illness Patient is a 64-year-old male with a known history of COPD currently not on home oxygen, hypertension, hyperlipidemia, GERD, previous history of smoking presents to ER with complaints of worsening difficulty in breathing. Found to have bilateral basal pneumonia on the top of acute COPD exacerbation. Pt was recently treated for COPD and pneumonia in this hospital from 01/04-01/07. he Is not on home oxygen. Presents dyspnea with cough and little phlegm and right- sided chest pain which felt like sharp increased by movement but not by breathing or coughing. No change in urine or bowel habits. Physical Dr. Alejo. His functional support analyst is Dr. Dumont. Also he follows with Dr. Ann for his leukocytosis. On admission patient was tachypneic with respiratory rate of 22, slightly tachycardic at 102-105. Currently patient is saturating 98% on 4 L oxygen via nasal cannula. Patient is afebrile. Labs showing leukocytosis of 18.5. His CBC is unremarkable. INR and BMP as well are unremarkable. Liver enzymes elevated. Magnesium was slightly low at 1.4. Serial troponins are negative less than 0.012. ABG showing pH of 7.4 which is normal, normal pCO2 36 and hypoxia with by mouth to 60 EKG showing sinus tachycardia at [address]-T changes. CTA of the chest showing patchy infiltrate and atelectasis of the lung bases with no evidence of pulmonary embolism. Pulmonary emphysema An emergency room patient was started on antibiotics with ceftriaxone and Zithromax and bronchodilators and fentanyl. Pulmonary team were consulted Review of Systems CONSTITUTIONAL: No fever, no malaise, no fatigue. HEENT: No recent visual problems or hearing problems. Denied any sore throat. CARDIOVASCULAR: No orthopnea, PND, no palpitations, no syncope. PULMONARY: no hemoptysis. No chest wall tenderness GASTROINTESTINAL: No diarrhea, no nausea, no vomiting, no abdominal pain. Normo active bowel sounds. NEUROLOGICAL: No headaches, no weakness, no numbness. HEMATOLOGICAL: Denies any bleeding or petechiae. GENITOURINARY: Denies any burning micturition, frequency, or urgency. MUSCULOSKELETAL/RHEUMATOLOGICAL: Denies any joint pain, swelling, or any muscle pain. ENDOCRINE: Denies any polyuria or polydipsia. Past Medical History Past Medical History: COPD, GERD/Reflux, Hyperlipidemia, Hypertension, Pneumonia, Sleep Apnea/CPAP/BIPAP Additional Past Medical History / Comment(s): Bronchitis, acute hypoxic hepe rcarbic respiratory failure/bipap, occasional lower back pain, benign colon polypectomy History of Any Multi-Drug Resistant Organisms: None Reported Past Surgical History: Unable to Obtain Additional Past Surgical History / Comment(s): colonoscopy with benign polypectomy Past Anesthesia/Blood Transfusion Reactions: No Reported Reaction Past Psychological History: Anxiety Smoking Status: Former smoker - Past Family History Father Family Medical History: Coronary Artery Disease (CAD) Additional Family Medical History / Comment(s): Father at the age of 74 yrs. Mother Family Medical History: Coronary Artery Disease (CAD) Additional Family Medical History / Comment(s): Mother had CABG. She in her 70s. Medications and Allergies Home Medications Medication Instructions Recorded Confirmed Type Atorvastatin [Lipitor] 40 mg PO HS 12/05/16 03/24/20 History [place]-3 Fatty Acids/Fish Oil [Fish 1 cap PO DAILY 12/05/16 03/24/20 History Oil 1,000 mg Softgel] Albuterol Nebulized [Ventolin 2.5 mg INHALATION RT-TID PRN 01/05/20 03/24/20 History Nebulized] Fluticasone/Salmeterol [Advair 1 puff INHALATION RT-BID 01/05/20 03/24/20 History 500-50 Diskus] Losartan [Cozaar] 50 mg PO DAILY 01/05/20 03/24/20 History Pantoprazole Sodium [Protonix] 40 mg PO DAILY 01/05/20 03/24/20 History Albuterol Sulfate [Ventolin HFA] 2 puff INHALATION RT-Q4H PRN #1 01/08/20 03/24/20 Rx inhaler Furosemide [Lasix] 20 mg PO DAILY 03/24/20 03/24/20 History LORazepam [Ativan] 0.5 mg PO BID PRN 03/24/20 03/24/20 History Tadalafil [Cialis] 10 mg PO DAILY PRN 03/24/20 03/24/20 History Allergies Allergy/AdvReac Type Severity Reaction Status Date / Time naproxen Allergy Itching Verified 03/24/20 21:26 Penicillins Allergy Unknown Verified 03/24/20 21:26 Childhood Physical Exam Vitals: Vital Signs Temp Pulse Pulse Resp BP BP Pulse Ox 03/25/20 04:00 97.8 F 82 18 143/68 98 03/25/20 01:01 102 H 22 94 L 03/25/20 00:45 98.5 F 105 H 22 96 03/25/20 00:37 98.1 F 109 H 18 94 L 03/25/20 00:20 98.5 F 96 24 154/86 100 03/25/20 00:05 96 03/24/20 22:01 105 H 27 H 139/81 100 03/24/20 20:30 98.6 F 115 H 38 H 118/83 95 Intake and Output 03/24/20 03/25/20 03/25/20 22:59 06:59 14:59 Intake Total 450 Balance 450 Intake: Oral 450 Other: Voiding Method Toilet # Voids 1 Weight 92.986 kg 81.3 kg GENERAL: The patient is alert and oriented x3, not in any acute distress. Well developed, well nourished. HEENT: Pupils are round and equally reacting to light. EOMI. No scleral icterus. No conjunctival pallor. Normocephalic, atraumatic. No pharyngeal erythema. No thyromegaly. CARDIOVASCULAR: S1 and S2 present. No murmurs, rubs, or gallops. -PULMONARY: Chest is clear to auscultation, no bilateral expiratory wheezing with harsh wet breath sounds ABDOMEN: Soft, nontender, nondistended, normoactive bowel sounds. No palpable organomegaly. MUSCULOSKELETAL: No joint swelling or deformity. EXTREMITIES: No cyanosis, clubbing, or pedal edema. NEUROLOGICAL: Gross neurological examination did not reveal any focal deficits. SKIN: No rashes. No petechiae Results CBC & Chem 7: 03/24/20 20:39 03/25/20 02:55 Labs: Abnormal Lab Results - Last 24 Hours (Table) 03/24/20 03/24/20 03/24/20 Range/Units 20:39 20:39 21:38 WBC 18.5 H (3.8-10.6) k/uL Neutrophils # 12.8 H (1.3-7.7) k/uL ABG pO2 60 L (83-108) mmHg ABG Total CO2 25 H (19-24) mmol/L ABG O2 Saturation 93.2 L (94-97) % Sodium 136 L (137-145) mmol/L Glucose 120 H (74-99) mg/dL Magnesium 1.4 L (1.6-2.3) mg/dL 03/25/20 Range/Units 02:55 WBC (3.8-10.6) k/uL Neutrophils # (1.3-7.7) k/uL ABG pO2 (83-108) mmHg ABG Total CO2 (19-24) mmol/L ABG O2 Saturation (94-97) % Sodium 134 L (137-145) mmol/L Glucose 171 H (74-99) mg/dL Magnesium (1.6-2.3) mg/dL Assessment and Plan Assessment: Acute COPD exacerbation possible bilateral basal pneumonia Sepsis secondary to pneumonia Significantly elevated WBC count, he follows up with Dr. Ann as an outpatient Hypertension Hyperlipidemia Ongoing nicotine addiction GERD Plan: This is a pleasant 64 years old male who presents with acute COPD exacerbation and possible pneumonia. Continue with antibiotics. Continue with steroids and breathing treatment. Oxygen as needed. Pulmonary consult. Check for influenza and covid-19. Sputum culture Labs and medication were reviewed.. Continue same treatment. Continue with symptomatic treatment. Resume home medication. Monitor lytes and vitals. DVT and GI prophylaxis. Further recommendationsas per clinical course of the patient DVT prophylaxis: Subcutaneous heparin GI Prophylaxis: Pepcid Prognosis is guarded
[2020-03-25] MEDS ORDERED: AZITHROMYCIN 500 MG in SODIUM CHLORIDE 0.9% 250 ML IVPB SCH (10:30)
[2020-03-25 11:42] VITALS: RESP 18
[2020-03-25] MEDS: HYDROcodone/APAP 5-325MG 1 EACH TAB PO PRN ×2 (14:03→20:36)
[2020-03-25] MEDS ORDERED: Magnesium Replacement Protocol 1 EACH MISC MISCELLANE PRN ×2 (14:05→15:19)
[2020-03-25] MEDS: MAGNESIUM SULFATE-D5W PMX 1 GM in DEXTROSE/WATER 1 100ML.BAG IVPB SCH ×3 (15:23→18:10)
--- NOTE | 2020-03-25 16:57 | CONS ---
CONSULTATION PULMONARY/CRITICAL CARE CONSULTATION: DATE OF CONSULTATION: 03/25/2020 This patient is a 64-year-old male whom I saw in the past. He does have a history of underlying COPD. I saw him in December with COPD exacerbation. He presented to the emergency room on March 24 complaining of being short of breath. He apparently fell, at which time he apparently hit the right side of his chest. He was not really having much in the way of issues until more recently, which is why he came in to be evaluated. He apparently started off not feeling particularly short of breath, but then became very short of breath. In the evening prior to his admission he was diaphoretic and struggling to breathe, and EMS was called. EMS brought the patient into the emergency room. They apparently put him on CPAP on the way in. He denied any fever or chills. He denied any sick contacts. He did not use oxygen at home. The patient apparently had a chest x-ray that was abnormal as well as a CT scan. The patient denies any nausea, vomiting or diarrhea. There are no genitourinary or GI complaints otherwise. Anyway, the patient was seen and admitted with a diagnosis of COPD exacerbation, chest trauma and difficulty breathing. HOME MEDICATIONS: Home medications are reviewed. The patient has a history of being on Lipitor, omega-3 fatty acids and fish oil, albuterol updrafts, Advair, losartan, Protonix, Lasix, lorazepam and Cialis. The patient also has an albuterol inhaler at home. ALLERGIES: ALLERGIES include NAPROXEN and PENICILLIN. MEDICAL HISTORY: Medical history includes COPD, GERD, hyperlipidemia, hypertension, pneumonia, and sleep apnea syndrome, currently on CPAP. He also carries with him a diagnosis of bronchitis, hypoxemic and hypercapnic respiratory failure, chronic back pain, and benign colon polyp with previous polypectomy. SURGICAL HISTORY: Surgical history includes colonoscopy with polypectomy. Most other surgeries are mostly remote and very minor. SOCIAL HISTORY: Positive for previous heavy tobacco use. He does not smoke currently. Denies any illicit drug use or alcohol use. FAMILY HISTORY: Positive for father with CAD and mother with a history of CAD and previous bypass grafting. REVIEW OF SYSTEMS: CONSTITUTIONAL: Negative. NEUROLOGIC: Negative. HEENT: Negative. CARDIOVASCULAR: Right-sided chest pain where he fell. PULMONARY: Shortness of breath, dry cough, chest tightness, wheezing. GI: Negative. : Negative. RHEUMATOLOGIC: Negative. IMMUNOLOGIC: Negative. ENDOCRINOLOGIC: Negative. DERMATOLOGIC: Negative. PHYSICAL EXAMINATION: VITAL SIGNS: Current vital signs are reviewed. Temperature is 98.8, heart rate 89, respiratory rate 18, blood pressure 108/63, mean 78, and 3-liter saturation 93%. GENERAL APPEARANCE: Appears in no acute distress. HEENT: Examination is grossly unremarkable. NECK: Supple. Full range of motion. No adenopathy. Neck veins are flat. CARDIOVASCULAR: Examination reveals regular rhythm and rate. S1, S2 normal. Heart sounds are distant. LUNGS: Lungs reveal some expiratory wheezes and rhonchi. Breath sounds are diminished. There is prolongation on forced maneuver. Adventitious lung sounds are more prominent on forced maneuver. No crackles. ABDOMEN: Soft. Bowel sounds are heard. EXTREMITIES: Intact. No cyanosis, clubbing or edema. SKIN: Without rash. NEUROLOGIC: Neurologic examination is brief but nonfocal. LABS: Reviewed. White count 18.5, hemoglobin 14.7, hematocrit 44.0, platelet count 191,000, PT, INR , PTT all normal. Blood gases on admission show a pO2 of 60, pCO2 of 36 and a pH of 7.45. Blood gases are consistent with hypoxemia and mild respiratory alkalosis. Sodium 134, potassium 4.1, chloride 104, CO2 23. Anion gap is 7. BUN and creatinine were 13 and 0.85. Influenza A and B studies were negative. Troponins were negative x2. NT-Pro-BNP was 216. Microbiology is all negative. A chest x-ray shows no acute cardiovascular disease. CT angiogram done on 03/24 reveals some patchy infiltrate and atelectasis at the lung bases. There is no PE. CURRENT MEDICATIONS: Current medications are reviewed. The patient is on Tylenol, albuterol updrafts, Lipitor, azithromycin, Symbicort, heparin, [place], ipratropium bromide and albuterol, Cozaar, magnesium replacement, Narcan and Protonix. ASSESSMENT: 1. Chronic obstructive pulmonary disease exacerbation, potentially complicated by bibasilar atelectasis/bibasilar pneumonia. 2. Recent chest trauma secondary to a fall. 3. Previous history of heavy tobacco use. 4. Severe chronic obstructive pulmonary disease, with an FEV1 which is 37% of predicted. 5. History of hyperlipidemia. 6. History of hypertension. 7. Prior history of pneumonia. 8. Until recently, ongoing tobacco use with nicotine addiction. 9. Colonic polyp, status post polypectomy. 10.Gastroesophageal reflux disease. 11.History of sleep apnea syndrome. PLAN: Please see my orders. Additional recommendations and suggestions are forthcoming. Prognosis is guarded. Hopefully the patient does not smoke currently. Additional recommendations and suggestions are forthcoming. MMODL / IJN: [id number] /
[2020-03-25] MEDS: INSULIN ASPART (NovoLOG) 100 UNIT/ML VIAL SQ SCH ×2 (17:09→21:01)
[2020-03-25] MEDS: methylPREDNISolone SOD SUCCI 125 MG/2 ML VIAL IV SCH ×2 (17:21→23:37)
--- NOTE | 2020-03-25 17:39 | P.CONS ---
History of Present Illness - Reason for Consult Consult date: 03/25/20 Leukocytosis Requesting physician: Maria Eugenia Lechuga - Chief Complaint Shortness of Breath - History of Present Illness Mr Mantilla is a pleasant white male, with a known history of COPD, but well- controlled health status. The patient was admitted in early 01/24 with pneumo halima, which was bilateral. He is admission, his WBC was noted to be elevated in the 30,000 range. For reference on 01/07/20-32.6. Hemoglobin is 12.9. Platelets within 48. The boost differential showed elevated lymphocytes at 19.56. On 12/26/19 WBC had been 47. While on 08/13/2009 been 12 again with predominant lymphocytes of 8.52. The patient was treated for pneumonia with improvement. The cause of the elevated lymphocytes. He had a flow cytometry done on 02/04/20. This confirmed the presence of monoclonal kappa restricted B-cell population consistent with CLL/SLL. This was CD38 negative. He was therefore referred here for further evaluation and recommendations. He subsequently had review of his labs with his PCP going back to 2017 showing lymphocyte elevation dating back to that time. He denies any other history of malignancy. There is no history of any autoimmune disease, or recurrent infections. Performance status is starting to normalize after his hospitalization. Chest x-ray on 01/08/20 had shown patchy density in the left lower lobe. He had x-ray abdomen on 01/24/20 because of generalized abdominal pain and dysuria that was negative other than moderate chronic fecal stasis. Repeat chest x-ray on 01/26/20 showed no acute process. CT of the abdomen and pelvis on 02/05/20 showed multifocal nodular opacities in bilateral lung bases with scattered groundglass opacities. There was a 7.2, weight 0.2 cm hypodense lesion in the liver consistent with hemangioma. There was a prominent perigastric node unchanged from 05/25. Prostatomegaly was seen. No evidence of any abnormal adenopathy. PSA from 01/24/20 was 8.8 he therefore appeared to have stage 1 disease. Observation was recommended. Additional labs showed normal hemoglobin levels, and negativity for ZAP 70, and CD38. FISH study was positive only for 13 every deletion, which is a favorable prognostic marker also in the absence of any other abnormalities. he denied any fevers/chills/nausea/vomiting. Respiratory status has further improved. Lower extremity swelling has also mostly resolved. Dopplers were negative. In 02/24. Appetite is normal. Review of systems otherwise as per HPI and negative out of 10 Review of Systems All systems: negative Constitutional: Reports as per HPI Past Medical History Past Medical History: COPD, GERD/Reflux, Hyperlipidemia, Hypertension, Pneumonia, Sleep Apnea/CPAP/BIPAP Additional Past Medical History / Comment(s): Bronchitis, acute hypoxic hepercarbic respiratory failure/bipap, occasional lower back pain, benign colon polypectomy History of Any Multi-Drug Resistant Organisms: None Reported Past Surgical History: Unable to Obtain Additional Past Surgical History / Comment(s): colonoscopy with benign polypectomy Past Anesthesia/Blood Transfusion Reactions: No Reported Reaction Past Psychological History: Anxiety Smoking Status: Former smoker - Past Family History Father Family Medical History: Coronary Artery Disease (CAD) Additional Family Medical History / Comment(s): Father at the age of 74 yrs. Mother Family Medical History: Coronary Artery Disease (CAD) Additional Family Medical History / Comment(s): Mother had CABG. She in her 70s. Medications and Allergies Home Medications Medication Instructions Recorded Confirmed Type Atorvastatin [Lipitor] 40 mg PO HS 12/05/16 03/24/20 History [place]-3 Fatty Acids/Fish Oil [Fish 1 cap PO DAILY 12/05/16 03/24/20 History Oil 1,000 mg Softgel] Albuterol Nebulized [Ventolin 2.5 mg INHALATION RT-TID PRN 01/05/20 03/24/20 History Nebulized] Fluticasone/Salmeterol [Advair 1 puff INHALATION RT-BID 01/05/20 03/24/20 History 500-50 Diskus] Losartan [Cozaar] 50 mg PO DAILY 01/05/20 03/24/20 History Pantoprazole Sodium [Protonix] 40 mg PO DAILY 01/05/20 03/24/20 History Albuterol Sulfate [Ventolin HFA] 2 puff INHALATION RT-Q4H PRN #1 01/08/20 03/24/20 Rx inhaler Furosemide [Lasix] 20 mg PO DAILY 03/24/20 03/24/20 History Azithromycin [Zithromax] 500 mg PO DAILY #3 tab 03/26/20 Rx Cefuroxime Axetil [Ceftin] 500 mg PO BID 7 Days #14 tab 03/26/20 Rx predniSONE 10 mg PO DIRECTED #40 tab 03/26/20 Rx Allergies Allergy/AdvReac Type Severity Reaction Status Date / Time naproxen Allergy Itching Verified 03/24/20 21:26 Penicillins Allergy Unknown Verified 03/24/20 21:26 Childhood Physical Exam Vitals: Vital Signs Temp Pulse Pulse Resp BP BP Pulse Ox 03/25/20 11:41 99 18 141/70 99 03/25/20 11:03 92 03/25/20 10:51 90 03/25/20 08:10 89 03/25/20 08:00 98.8 F 88 99 20 134/75 94 L 03/25/20 04:00 97.8 F 82 18 143/68 98 03/25/20 01:01 102 H 22 94 L 03/25/20 00:45 98.5 F 105 H 22 96 03/25/20 00:37 98.1 F 109 H 18 94 L 03/25/20 00:20 98.5 F 96 24 154/86 100 03/25/20 00:05 96 03/24/20 22:01 105 H 27 H 139/81 100 03/24/20 20:30 98.6 F 115 H 38 H 118/83 95 Intake and Output 03/24/20 03/25/20 03/25/20 22:59 06:59 14:59 Intake Total 450 240 Balance 450 240 Intake: Oral 450 240 Other: Voiding Method Toilet # Voids 1 Weight 92.986 kg 81.3 kg - Constitutional General appearance: cooperative, no acute distress - EENT Eyes: EOMI, PERRLA ENT: hard of hearing, NA/AT, normal oropharynx - Neck Neck: normal ROM - Respiratory Respiratory: bilateral: CTA, diminished - Cardiovascular Rhythm: regular Heart sounds: normal: S1, S2 - Gastrointestinal General gastrointestinal: soft, tenderness - Integumentary Integumentary: pale - Neurologic Neurologic: CNII-XII intact - Musculoskeletal Musculoskeletal: generalized weakness, strength equal bilaterally - Psychiatric Psychiatric: A&O x's 3, appropriate affect, intact judgment & insight Results CBC & Chem 7: 03/26/20 07:22 03/26/20 07:22 Labs: Abnormal Lab Results - Last 24 Hours (Table) 03/24/20 03/24/20 03/24/20 Range/Units 20:39 20:39 21:38 WBC 18.5 H (3.8-10.6) k/uL Neutrophils # 12.8 H (1.3-7.7) k/uL ABG pO2 60 L (83-108) mmHg ABG Total CO2 25 H (19-24) mmol/L ABG O2 Saturation 93.2 L (94-97) % Sodium 136 L (137-145) mmol/L Glucose 120 H (74-99) mg/dL Magnesium 1.4 L (1.6-2.3) mg/dL 03/25/20 03/25/20 Range/Units 02:55 09:57 WBC (3.8-10.6) k/uL Neutrophils # (1.3-7.7) k/uL ABG pO2 (83-108) mmHg ABG Total CO2 (19-24) mmol/L ABG O2 Saturation (94-97) % Sodium 134 L (137-145) mmol/L Glucose 171 H (74-99) mg/dL Magnesium 1.3 L (1.6-2.3) mg/dL Assessment and Plan (1) CLL (chronic lymphocytic leukemia) Status: Acute Code(s): C91.10 - CHRONIC LYMPHOCYTIC LEUK OF B-CELL TYPE NOT ACHIEVE REMIS SNOMED Code(s): 16797170 (2) Acute exacerbation of chronic obstructive airways disease Status: Acute Code(s): J44.1 - CHRONIC OBSTRUCTIVE PULMONARY DISEASE W (ACUTE) EXACERBATION SNOMED Code(s): 393865889 (3) Pneumonia Status: Acute Code(s): J18.9 - PNEUMONIA, UNSPECIFIED ORGANISM SNOMED Code(s): 411634859 Plan: His WBC is stable, we will check his immunoglbulins and if low and not improved on standard treatment per primary team will add for additional immune protection
[2020-03-25 20:59] LABS: Glucose,Whole Blood 137 mg/dL (75-99)
[2020-03-25] MEDS ORDERED: HEPARIN SODIUM,PORCINE 5,000 UNIT/ML 1 ML VIAL SQ SCH (21:00)
[2020-03-25] MEDS ORDERED: FAMOTIDINE 20 MG/2 ML VIAL IV SCH (21:00)
[2020-03-25] MEDS ORDERED: ATORVASTATIN 40 MG TAB PO SCH (21:00)
[2020-03-26] MEDS: IPRATROPIUM-ALBUTEROL 3 ML NEB INHALATION SCH ×3 (03:41→11:05)
[2020-03-26] MEDS: methylPREDNISolone SOD SUCCI 125 MG/2 ML VIAL IV SCH (06:23)
[2020-03-26] MEDS: HYDROcodone/APAP 5-325MG 1 EACH TAB PO PRN (06:24)
[2020-03-26] MEDS: INSULIN ASPART (NovoLOG) 100 UNIT/ML VIAL SQ SCH (06:26)
[2020-03-26 06:27] LABS: Glucose,Whole Blood 142 mg/dL (75-99)
[2020-03-26 08:14] LABS: HCT 44.7 % (39.0-53.0); HGB 14.6 gm/dL (13.0-17.5); RBC 4.93 m/uL (4.30-5.90); WBC 16.7 k/uL (3.8-10.6)
[2020-03-26 08:15] LABS: Basophils % (A) 0 %; Eosinophils % (A) 0 %; Lymphocytes # (A) 4.4 k/uL (1.0-4.8); Lymphocytes % (A) 27 %; MCH 29.6 pg (25.0-35.0); MCHC 32.7 g/dL (31.0-37.0); MCV 90.5 fL (80.0-100.0); Mean Platelet Volume 7.2; Monocytes # (A) 0.3 k/uL (0-1.0); Monocytes % (A) 2 %; Neutrophils # (A) 11.7 k/uL (1.3-7.7); Neutrophils % (A) 70 %; Platelet Count 191 k/uL (150-450); RDW 14.3 % (11.5-15.5)
[2020-03-26 08:21] LABS: African American GFR (CKD) >90 (>60 ml/min/1.73 sqM); Anion Gap 9 mmol/L; Blood Urea Nitrogen 15 mg/dL (9-20); Calcium 9.1 mg/dL (8.4-10.2); Carbon Dioxide 24 mmol/L (22-30); Chloride 101 mmol/L (98-107); Glucose 138 mg/dL (74-99); Magnesium 2.3 mg/dL (1.6-2.3); Non-African American GFR(CKD) >90 (>60 ml/min/1.73 sqM); Potassium 4.6 mmol/L (3.5-5.1); Sodium 134 mmol/L (137-145)
[2020-03-26 08:25] VITALS: BP 144/77; PULSE 106; TEMP 98
[2020-03-26] MEDS: PANTOPRAZOLE 40 MG TABLET PO SCH (08:27)
[2020-03-26] MEDS: LOSARTAN 50 MG TAB PO SCH (08:27)
[2020-03-26] MEDS ORDERED: AZITHROMYCIN 500 MG TAB PO SCH (09:00)
[2020-03-26 12:10] LABS: Glucose,Whole Blood 114 mg/dL (75-99)
--- NOTE | 2020-03-26 16:15 | PN ---
PROGRESS NOTE PULMONARY/CRITICAL CARE PROGRESS NOTE: DATE OF SERVICE: 03/26/2020 This is a pleasant 64-year-old male whom we have seen in the past. He has a history of underlying severe COPD. His FEV1 is 37% of predicted. He presented to the emergency room on March 24 complaining of being short of breath. He apparently fell on the right side of his chest, injuring his chest. Anyway, he was treated with fluids, corticosteroids, bronchodilators and antibiotics, and seemed to improve dramatically. The patient was feeling much better today. He does not use oxygen at home. He denied any nausea, vomiting, diarrhea, genitourinary complaints, chest pain or pressure. He denied palpitations and fluttering in the chest. He did have some right-sided chest discomfort from where he fell. PHYSICAL EXAMINATION: VITAL SIGNS: Current vital signs are reviewed. Temperature is 98 degrees, heart rate 100, respiratory rate 18, blood pressure 144/77, mean 99, 3-liter saturation 95%. GENERAL APPEARANCE: He appears in no acute distress. HEENT: Examination is grossly unremarkable. NECK: Supple. Full range of motion. No adenopathy. Neck veins are flat. CARDIOVASCULAR: Heart rate is irregular. Heart rate is about 88 beats per minute. S1, S2 normal. No murmur. LUNGS: Improved breath sounds. A few scattered mild rhonchi noted. Slight prolongation. No crackles. Breath sounds equal. ABDOMEN: Soft. Bowel sounds are heard. EXTREMITIES: Intact, NO cyanosis, clubbing or edema. SKIN: Without rash. NEUROLOGIC: Neurologic examination is brief but nonfocal. LABS: Reviewed. White count 16.7. Hemoglobin, hematocrit and platelet count all normal. Sodium 134, potassium 4.6, chloride 101, CO2 24. Anion gap is 9. BUN and creatinine were 15 and 0.68. COVID-19 testing was negative. Influenza studies were negative. Microbiology is negative. No recent chest x-ray. Medications are reviewed. ASSESSMENT: 1. Chronic obstructive pulmonary disease exacerbation, complicated by bibasilar atelectasis/bibasilar pneumonia. 2. Recent chest trauma secondary to a fall, making atelectasis much more likely, as above. 3. Previous history of heavy tobacco use. 4. Severe chronic obstructive pulmonary disease, with an FEV1 that is 37% of predicted. 5. History of hypertension. 6. History of hyperlipidemia. 7. Prior history of pneumonia. 8. Until recently, ongoing tobacco use with nicotine addiction. 9. History of colonic polyps, status post polypectomy. 10.Gastroesophageal reflux disease. 11.History of sleep apnea syndrome. PLAN: From my perspective, the patient is doing much better. I am not sure whether or not he will be discharged home today. He should follow up with my partner, Dr. Dumont, whom he sees my office. If he is still smoking, he was counseled about the importance of smoking cessation. He should be discharged home on his usual medications, including prednisone with a burst and taper. I would go 40 mg a day for 4 days, 30 mg a day for 4 days, 20 mg a day for 4 days, 10 mg a day for 4 days, then stop. If he is discharged on some antibiotics, it can be just for a short period of time, 3 to 5 days. No additional recommendations are made. Prognosis is guarded. MMODL / IJN: [id number] /
--- NOTE | 2020-03-26 21:46 | P.PN ---
Subjective Progress Note Date: 03/26/20 Principal diagnosis: Pneumonia He is up in chair and overall feeling better Objective - Vital Signs Vital signs: Vital Signs Temp 98.0 F 03/26/20 08:24 Pulse 106 H 03/26/20 08:24 Resp 18 03/26/20 08:24 BP 144/77 03/26/20 08:24 Pulse Ox 95 03/26/20 08:24 Intake & Output 03/26/20 03/26/20 03/27/20 06:59 18:59 06:59 Intake Total 900 360 Balance 900 360 Weight 82.5 kg Intake: Oral 900 360 Other: Voiding Method Toilet Toilet # Voids 2 0 - Exam - Constitutional General appearance: cooperative, no acute distress - EENT Eyes: EOMI, PERRLA ENT: hard of hearing, NA/AT, normal oropharynx - Neck Neck: normal ROM - Respiratory Respiratory: bilateral: CTA, diminished - Cardiovascular Rhythm: regular Heart sounds: normal: S1, S2 - Gastrointestinal General gastrointestinal: soft, tenderness - Integumentary Integumentary: pale - Neurologic Neurologic: CNII-XII intact - Musculoskeletal Musculoskeletal: generalized weakness, strength equal bilaterally - Psychiatric Psychiatric: A&O x's 3, appropriate affect, intact judgment & insight - Labs CBC & Chem 7: 03/26/20 07:22 03/26/20 07:22 Labs: Abnormal Lab Results - Last 24 Hours (Table) 03/26/20 03/26/20 03/26/20 Range/Units 06:26 07:22 07:22 WBC 16.7 H (3.8-10.6) k/uL Neutrophils # 11.7 H (1.3-7.7) k/uL Sodium 134 L (137-145) mmol/L Glucose 138 H (74-99) mg/dL POC Glucose (mg/dL) 142 H (75-99) mg/dL 03/26/20 Range/Units 12:07 WBC (3.8-10.6) k/uL Neutrophils # (1.3-7.7) k/uL Sodium (137-145) mmol/L Glucose (74-99) mg/dL POC Glucose (mg/dL) 114 H (75-99) mg/dL Microbiology - Last 24 Hours (Table) 03/24/20 22:07 Blood Culture - Preliminary Blood No Growth after 24 hours Assessment and Plan (1) CLL (chronic lymphocytic leukemia) Status: Acute Code(s): C91.10 - CHRONIC LYMPHOCYTIC LEUK OF B-CELL TYPE NOT ACHIEVE REMIS SNOMED Code(s): 88352348 (2) Acute exacerbation of chronic obstructive airways disease Status: Acute Code(s): J44.1 - CHRONIC OBSTRUCTIVE PULMONARY DISEASE W (ACUTE) EXACERBATION SNOMED Code(s): 630834604 (3) Pneumonia Status: Acute Code(s): J18.9 - PNEUMONIA, UNSPECIFIED ORGANISM SNOMED Code(s): 619956039 Plan: His WBC is stable, we will check his immunoglbulins and if low and not improved on standard treatment per primary team will add for additional immune protection Two weeks with Dr. Ann Physician Attest: I have completed the full history and physcial and agree with above dictation dictated as a scribe
--- NOTE | 2020-03-26 23:27 | P.DS ---
Providers Date of admission: 03/24/20 23:56 Attending physician: Rudy Mo MD Consults: 03/24/20 23:55 Consult Physician Urgent Consulting Provider: Jo-Ann Osorio Consult Reason/Comments: nivdrf, aecopd, cap Do you want consulting provider notified?: Yes 03/25/20 10:26 Consult Physician Routine Consulting Provider: Rafita Ann Consult Reason/Comments: CLL Do you want consulting provider notified?: Yes Primary care physician: Khoi Alejo Hospital Course: Diagnoses: Acute COPD exacerbation, improved possible bilateral basal pneumonia, improved Sepsis secondary to pneumonia Right chest pain associated with fall, improvement CLL with Significantly elevated WBC count, he follows up with Dr. Ann as an outpatient Hypertension Hyperlipidemia Ongoing nicotine addiction GERD Hospital course: Patient is a 64-year-old male with a known history of COPD currently not on home oxygen, hypertension, hyperlipidemia, GERD, previous history of smoking presents to ER with complaints of worsening difficulty in breathing. Found to have bilateral basal pneumonia on the top of acute COPD exacerbation. Pt was recently treated for COPD and pneumonia in this hospital from 01/04-01/07. he Is not on home oxygen. Presents dyspnea with cough and little phlegm and right- sided chest pain which felt like sharp increased by movement but not by breathing or coughing associated with fall. CTA was negative for PE showing mediastinal lymphadenopathy. Patient is treated with IV antibiotics Zithromax and ceftriaxone and Solu-Medrol. Patient showed interval improvement and on the day of discharge his breathing quietly and saturations in the 90s on room air. Patient does not need oxygen on exertion when tested. This morning patient has been seen and cleared for discharge by pulmonary team. When I felt that the patient was ordered. And eager to be discharged. Problems and management plan were discussed with the patient and he verbalized understanding and acceptance Patient was found stable and can be discharged home however he needs follow-up as an outpatient. Patient was instructed to follow up with PCP within one week and patient agrees. Patient agrees with the appointments made for him with Dr. Dumont on 04/08 states he will follow-up Gen: patient is a AAOx3, no distress CVS: S1-S2, RRR, no murmur Lungs: B/L CTA, no wheezing Abdomen: soft, no distention, no tenderness, positive bowel sounds Extremity: no leg edema or induration Time spent more than 35 minutes No change in urine or bowel habits. Physical Dr. Alejo. His sales support representative is Dr. Dumont. Also he follows with Dr. Ann for his leukocytosis. Patient Condition at Discharge: Stable Plan - Discharge Summary Discharge Rx Participant: Yes New Discharge Prescriptions: New Cefuroxime Axetil [Ceftin] 500 mg PO BID 7 Days #14 tab predniSONE 10 mg PO DIRECTED #40 tab Azithromycin [Zithromax] 500 mg PO DAILY #3 tab Continue [place]-3 Fatty Acids/Fish Oil [Fish Oil 1,000 mg Softgel] 1 cap PO DAILY Atorvastatin [Lipitor] 40 mg PO HS Pantoprazole Sodium [Protonix] 40 mg PO DAILY Losartan [Cozaar] 50 mg PO DAILY Albuterol Nebulized [Ventolin Nebulized] 2.5 mg INHALATION RT-TID PRN PRN Reason: Shortness Of Breath Fluticasone/Salmeterol [Advair 500-50 Diskus] 1 puff INHALATION RT-BID Albuterol Sulfate [Ventolin HFA] 2 puff INHALATION RT-Q4H PRN #1 inhaler PRN Reason: Shortness Of Breath Furosemide [Lasix] 20 mg PO DAILY Discontinued LORazepam [Ativan] 0.5 mg PO BID PRN PRN Reason: Anxiety Tadalafil [Cialis] 10 mg PO DAILY PRN PRN Reason: ED Discharge Medication List Atorvastatin [Lipitor] 40 mg PO HS 12/05/16 [History] [place]-3 Fatty Acids/Fish Oil [Fish Oil 1,000 mg Softgel] 1 cap PO DAILY 12/05/16 [History] Albuterol Nebulized [Ventolin Nebulized] 2.5 mg INHALATION RT-TID PRN 01/05/20 [History] Fluticasone/Salmeterol [Advair 500-50 Diskus] 1 puff INHALATION RT-BID 01/05/20 [History] Losartan [Cozaar] 50 mg PO DAILY 01/05/20 [History] Pantoprazole Sodium [Protonix] 40 mg PO DAILY 01/05/20 [History] Albuterol Sulfate [Ventolin HFA] 2 puff INHALATION RT-Q4H PRN #1 inhaler 01/08/20 [Rx] Furosemide [Lasix] 20 mg PO DAILY 10/18/20 [History] Azithromycin [Zithromax] 500 mg PO DAILY #3 tab 03/26/20 [Rx] Cefuroxime Axetil [Ceftin] 500 mg PO BID 7 Days #14 tab 03/26/20 [Rx] predniSONE 10 mg PO DIRECTED #40 tab 03/26/20 [Rx] Follow up Appointment(s)/Referral(s): Khoi Alejo DO [Primary Care Provider] - 03/28/20 2:20 pm Gely Dumont MD [STAFF PHYSICIAN] - 04/08/21 1:00 pm Patient Instructions/Handouts: Chronic Lung Disease and Infection Prevention (DC) Activity/Diet/Wound Care/Special Instructions: Heart healthy diet Activities restricted until you see your doctor Discharge Disposition: HOME SELF-CARE
== END 2020-03-26 13:20 | disposition home or self-care (01) | DRG 871 ==
LOC: EC 20:27 → 3SCARD 23:56
PROVIDERS: ADMIT Internal Medicine; ATTEND Internal Medicine
PROC: 5A09457 Assistance with Respiratory Ventilation, 24-96 Consecutive Hours, Continuous Positive Airway Pressure (ICD-10-PCS; principal; 2020-03-24)
DX: A41.9 Sepsis, unspecified organism (principal); J18.9 Pneumonia, unspecified organism; J98.11 Atelectasis; C91.10 Chronic lymphocytic leukemia of B-cell type not having achieved remission; J43.9 Emphysema, unspecified; W19.XXXA Unspecified fall, initial encounter; K21.9 Gastro-esophageal reflux disease without esophagitis; I10 Essential (primary) hypertension; E78.5 Hyperlipidemia, unspecified; G47.30 Sleep apnea, unspecified; M54.5 Low back pain; N40.0 Benign prostatic hyperplasia without lower urinary tract symptoms; Z20.828 Contact with and (suspected) exposure to other viral communicable diseases; F41.9 Anxiety disorder, unspecified; R74.8 Abnormal levels of other serum enzymes; D18.03 Hemangioma of intra-abdominal structures; F17.200 Nicotine dependence, unspecified, uncomplicated; Z88.0 Allergy status to penicillin; Z88.8 Allergy status to other drugs, medicaments and biological substances; Z79.899 Other long term (current) drug therapy; Z87.01 Personal history of pneumonia (recurrent); Z87.898 Personal history of other specified conditions; Z87.09 Personal history of other diseases of the respiratory system; Z86.010 Personal history of colon polyps; Z82.49 Family history of ischemic heart disease and other diseases of the circulatory system; Z88.5 Allergy status to narcotic agent; Z98.890 Other specified postprocedural states; Z87.19 Personal history of other diseases of the digestive system
CPT/HCPCS: 36415; 36600; 71045; 71275; 80048; 80053; 82805; 83605; 83735; 83880; 84145; 84484; 85025; 85610; 85730; 87040; 87502; 93005; 94640; 94660; 96365; 96375; 99291

== ENCOUNTER → 2020-03-28 | Outpatient (CLI) | payer MEDICARE ==
--- NOTE | 2020-03-28 18:37 | XR ---
EXAMINATION TYPE: PA chest with right rib series DATE OF EXAM: 03/28/2020 COMPARISON: 03/24/2020 HISTORY: 64-year-old male lobar pneumonia, COPD, chest pain TECHNIQUE: 5 views FINDINGS: Heart normal size. Aorta and pulmonary vasculature within normal limits. Mild interstitial prominence is unchanged. Mild hyperinflation. No consolidation, pneumothorax, or pleural effusion. There is a nondisplaced fracture of the right posterolateral eighth rib. No additional fracture ident ified. IMPRESSION: COPD. Nondisplaced fracture of the right posterolateral eighth rib. No acute pulmonary process.
== END | disposition home or self-care (01) ==
LOC: RADXRYALE 15:08
PROVIDERS: ATTEND Family Medicine
DX: J44.0 Chronic obstructive pulmonary disease with (acute) lower respiratory infection (principal); S22.31XA Fracture of one rib, right side, initial encounter for closed fracture

== ENCOUNTER → 2020-11-15 | Outpatient (CLI) | payer MEDICARE ==
[2020-11-15 13:45] LABS: African American GFR (CKD) >90 (>60 ml/min/1.73 sqM); Blood Urea Nitrogen 13 mg/dL (9-20); Non-African American GFR(CKD) >90 (>60 ml/min/1.73 sqM)
--- NOTE | 2020-11-16 13:37 | CT ---
EXAMINATION TYPE: CT abdomen w con DATE OF EXAM: 11/15/2020 COMPARISON: 02/05/2020 INDICATION: RUQ swelling, abnormal prior, hemangioma DLP: 393.8 mGycm, Automated exposure control for dose reduction was used. CONTRAST: 100 mL of Isovue 300. Study performed with Oral Contrast TECHNIQUE: Axial images were obtained from above the diaphragm to the pubic rami in the axial plane a t 5 mm thick sections. Reconstructed images are reviewed on the computer in the coronal plane. FINDINGS: Limited CT sections are obtained the lung bases. The lung bases are clear. Minimal hiatal hernia is not excluded. CT ABDOMEN: Liver: There is irregular large hypodensity with peripheral enhancement in the posterior right lobe l iver. This currently measures 8.6 x 6.7 cm. Previous Measurement 8.2 x 7.2 cm. On delayed images this has a more homogenous enhancement with a remaining central hypodensity. Findings can be compatible w ith a large hemangioma. Spleen: Normal Pancreas: Normal Adrenal glands: The adrenal glands are normal. Gallbladder: Normal Kidneys: No masses are evident. No hydronephrosis is present. No cysts are present. Delayed images were obtained through the kidneys, which remain unremarkable. Aorta: Vascular calcification is within the aorta. Inferior vena cava: Normal. Loops of bowel within the abdomen and pelvis are normal. There are loops of bowel which are incom pletely distended or lack oral contrast limiting their evaluation. IMPRESSIONS: 1. Similar to slightly enlarged enhancing area within the posterior right lobe liver. Findings most likely represent a hemangioma. This could be confirmed with nuclear medicine sulfur colloid scan.
== END | disposition home or self-care (01) ==
LOC: RADCTMAIN 13:00
PROVIDERS: ATTEND Family Medicine
DX: D18.03 Hemangioma of intra-abdominal structures (principal)
CPT/HCPCS: 82565; 84520; 74160; 36415; Q9967

== ENCOUNTER 2021-01-14 14:05 | Emergency (ER) | payer MEDICARE ==
[2021-01-14 14:31] VITALS: BP 152/96; PULSE 87; RESP 19; TEMP 98.3
[2021-01-14] MEDS ORDERED: DIPH,PERTUS(ACELL)TETVAC-LF 0.5 ML VIAL IM ONE (14:36)
[2021-01-14] MEDS ORDERED: ceFAZolin 1,000 MG VIAL (IM USE) IM STA (14:36)
[2021-01-14] MEDS ORDERED: MORPHINE SULFATE 4 MG/ML SYRINGE IM STA (14:37)
[2021-01-14] MEDS ORDERED: LIDOCAINE 1% INJ 10MG/ML (20 ML MDV) SQ ONE (14:37)
--- NOTE | 2021-01-14 15:06 | XR ---
EXAMINATION TYPE: XR hand complete RT DATE OF EXAM: 01/14/2021 COMPARISON: None HISTORY: Right hand versus log splitter TECHNIQUE: 3 view right hand FINDINGS: There is amputation of the majority of the distal phalanx ring finger. Soft tissue injury e xtends from the middle phalanx level to the expected mid diaphyseal region of the distal phalanx of t he ring finger. The middle phalanx appears intact. Distal phalanx appears to have amputation includin g a portion of the articular surface. There is a somewhat rectangular hypodensity within the base of the middle phalanx measuring 1.1 x 0.4 cm. This could be a foreign body such as would. A laceration could have this appearance as well. The adjacent osseous structures appear intact. Remaining digits appear intact. Joint spaces are preserved. IMPRESSION: 1. Amputation of the distal phalanx right middle finger discussed above. There is some soft tissue i njury extending from the middle phalanx level to the amputation level. 2. There is some lucency within the soft tissue of the base of the middle finger. Consider foreign johnathan dy such as would as well as laceration.
[2021-01-14] MEDS ORDERED: BACITRACIN OINT 1 EACH PACKET TOPICAL STA (16:29)
[2021-01-14] MEDS ORDERED: BACITRACIN OINT 1 EACH PACKET TOPICAL ONE (17:02)
[2021-01-14] MEDS ORDERED: ACET/COD 300 MG/30 MG STARTER PACK 6 TAB BTL PO STA (17:06)
[2021-01-14] MEDS ORDERED: CEPHALEXIN 500MG STARTER PACK 4 CAP BTL PO STA (17:14)
--- NOTE | 2021-01-14 17:16 | ED ---
General Adult HPI - General Chief complaint: Wound/Laceration Stated complaint: R Finger Lac Time Seen by Provider: 01/14/21 14:45 Source: patient Mode of arrival: ambulatory Limitations: no limitations - History of Present Illness Initial comments: 65-year-old male with a past medical history of hyperlipidemia, hypertension presents to the emergency room for a chief complaint of laceration. Patient reports that he was using a log splitter when he cut his hand. Patient states he cut off the tip of his fourth digit. He is not sure if he has any other lacerations as he was wearing a glove when this occurred. He is not up-to-date on tetanus.Patient has no other complaints at this time including shortness of breath, chest pain, abdominal pain, nausea or vomiting, headache, or visual changes. - Related Data Home Medications Medication Instructions Recorded Confirmed Atorvastatin [Lipitor] 40 mg PO HS 12/05/16 03/24/20 [place]-3 Fatty Acids/Fish Oil [Fish 1 cap PO DAILY 12/05/16 03/24/20 Oil 1,000 mg Softgel] Albuterol Nebulized [Ventolin 2.5 mg INHALATION RT-TID PRN 01/05/20 03/24/20 Nebulized] Fluticasone/Salmeterol [Advair 1 puff INHALATION RT-BID 01/05/20 03/24/20 500-50 Diskus] Losartan [Cozaar] 50 mg PO DAILY 01/05/20 03/24/20 Pantoprazole Sodium [Protonix] 40 mg PO DAILY 01/05/20 03/24/20 Furosemide [Lasix] 20 mg PO DAILY 03/24/20 03/24/20 Previous Rx's Medication Instructions Recorded Albuterol Sulfate [Ventolin HFA] 2 puff INHALATION RT-Q4H PRN #1 01/08/20 inhaler Azithromycin [Zithromax] 500 mg PO DAILY #3 tab 03/26/20 Cefuroxime Axetil [Ceftin] 500 mg PO BID 7 Days #14 tab 03/26/20 predniSONE 10 mg PO DIRECTED #40 tab 03/26/20 Cephalexin [Keflex] 500 mg PO Q6HR 7 Days #28 cap 01/14/21 Allergies Allergy/AdvReac Type Severity Reaction Status Date / Time naproxen Allergy Itching Verified 01/14/21 14:31 Penicillins Allergy Unknown Verified 01/14/21 14:31 Childhood Review of Systems ROS Statement: Those systems with pertinent positive or pertinent negative responses have been documented in the HPI. ROS Other: All systems not noted in ROS Statement are negative. Past Medical History Past Medical History: COPD, GERD/Reflux, Hyperlipidemia, Hypertension, Pneumonia, Sleep Apnea/CPAP/BIPAP Additional Past Medical History / Comment(s): Bronchitis, acute hypoxic hepercarbic respiratory failure/bipap, occasional lower back pain, benign colon polypectomy History of Any Multi-Drug Resistant Organisms: None Reported Past Surgical History: Unable to Obtain Additional Past Surgical History / Comment(s): colonoscopy with benign polypectomy Past Anesthesia/Blood Transfusion Reactions: No Reported Reaction Past Psychological History: Anxiety Smoking Status: Former smoker - Past Family History Father Family Medical History: Coronary Artery Disease (CAD) Additional Family Medical History / Comment(s): Father at the age of 74 yrs. Mother Family Medical History: Coronary Artery Disease (CAD) Additional Family Medical History / Comment(s): Mother had CABG. She in her 70s. General Exam - General Exam Comments Initial Comments: Left hand: Patient has partial amputation of the distal phalanx of the left fourth digit with bone exposed. Patient also has a 3 cm laceration on the web space between the third and fourth digit that does wrap around the third digit both dorsally and into the palmar region. I do not see any tendon laceration. He has full range of motion including flexion and extension of the third MCP, PIP, and DIP joints with sensation in both the distal phalanx and middle phalanx of the third digit. Patient has full flexion and extension of the MCP, PIP, and DIP joints of the fourth digit as well. Capillary refill less than 2 seconds in all digits. Radial pulse 2+. No foreign body noted Limitations: no limitations General appearance: alert, in no apparent distress Head exam: Present: atraumatic Eye exam: Present: normal appearance, PERRL, EOMI. Absent: scleral icterus ENT exam: Present: normal exam, mucous membranes moist Neck exam: Present: normal inspection, full ROM. Absent: tenderness Respiratory exam: Present: normal lung sounds bilaterally. Absent: respiratory distress, wheezes Cardiovascular Exam: Present: regular rate, normal rhythm, normal heart sounds Course Vital Signs 01/14/21 14:28 Temperature 98.3 F Pulse Rate 87 Respiratory 19 Rate Blood Pressure 152/96 O2 Sat by Pulse 97 Oximetry Procedures - Laceration Laceration #1 Consent Obtained: verbal consent Indication: laceration Site: hand Size (cm): 3 Description: linear Depth: simple, single layer Anesthetic Used: lidocaine 1% Anesthesia Technique: local infiltration Amount (mls): 5 Pre-repair: wound explored, irrigated extensively (With saline pressure irrigation), deep structures intact Type of Sutures: nylon Size of Sutures: 5-0 Number of Sutures: 8 Technique: simple, interrupted Patient Tolerated Procedure: well, no complications Medical Decision Making - Medical Decision Making Vitals are stable. Patient's glove was removed. Patient does have a partial amputation of the distal phalanx of the left third digit, radial aspect. He also has a laceration in the webspace between the third and fourth digits. Full range of motion of both third and fourth digit. Do not suspect tendon laceration of the third digit. Wound was irrigated with 2 L of saline. Patient was given IM Ancef. X-ray was obtained which showed amputation of the distal phalanx right middle finger however I do know that he means fourth finger. There is also a lucency within the soft tissue at the base of the middle finger, etc. foreign body as well as laceration. I did irrigate the wound and explore for foreign body which I did not appreciate. Case was discussed with alicia allen. Recommend suturing the webspace laceration and covering both lacerations with bacitracin, Vaseline gauze, and tube gauze. Wound was sutured. Fourth digit was wrapped. He was started on Keflex and given Tylenol 3 for home. He is to call the office tomorrow to make an appointment for in office evaluation and then it is expected that he will undergo revision. We did attempt to make this call for him however the office was closed. Patient will return for any worsening symptoms. We will discharge him home with Tylenol 3 for pain. Disposition Clinical Impression: Partial traumatic amputation of finger through phalanx, Laceration Disposition: HOME SELF-CARE Condition: Good Instructions (If sedation given, give patient instructions): Laceration (ED) Additional Instructions: Please call [facility] tomorrow morning. They would like to see you tomorrow and then schedule revision on . You can keep dressings in place until that time. Take antibiotics every 6 hours. Take Tylenol 3 for pain. Do not take Motrin until orthopedics says that you can. Rest ice and elevate the hand. Return to the emergency room for any worsening symptoms. Prescriptions: Cephalexin [Keflex] 500 mg PO Q6HR 7 Days #28 cap Is patient prescribed a controlled substance at d/c from ED?: No Referrals: Khoi Alejo DO [Primary Care Provider] - 1-2 days Toni Marx MD [STAFF PHYSICIAN] - 1-2 days Time of Disposition: 17:14
== END 2021-01-14 17:34 | disposition home or self-care (01) ==
LOC: EC 14:05
DX: S68.123A Partial traumatic metacarpophalangeal amputation of left middle finger, initial encounter (principal); J44.9 Chronic obstructive pulmonary disease, unspecified; K21.9 Gastro-esophageal reflux disease without esophagitis; E78.5 Hyperlipidemia, unspecified; I10 Essential (primary) hypertension; F41.9 Anxiety disorder, unspecified; Z88.0 Allergy status to penicillin; Z88.6 Allergy status to analgesic agent; Z87.891 Personal history of nicotine dependence; W31.2XXA Contact with powered woodworking and forming machines, initial encounter
CPT/HCPCS: 99283; 96372 ×2; 90471; 12002; 73130; 90715; J2270; J0690; J2001

== ENCOUNTER 2021-01-16 10:49 | Day surgery (SDC) | payer MEDICARE ==
[2021-01-15 12:54] VITALS: BMI 23.7
--- NOTE | 2021-01-15 13:59 | HP ---
HISTORY AND PHYSICAL CHIEF COMPLAINT: Right 3rd and 4th digit pain. 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 He got his hand caught in the log splitter. He was initially seen in the emergency room and underwent irrigation of his right 4th digit, partial amputation along with repair of the laceration of the right 3rd digit. He was given a tetanus update. He has been on oral Keflex since his ER visit. PAST MEDICAL HISTORY: Significant for back, COPD, hypertension, and chronic lymphocytic leukemia. PAST SURGICAL HISTORY: Negative. CURRENT MEDICATIONS: Tylenol with codeine, Keflex, albuterol inhaler, atorvastatin, lorazepam, losartan, pantoprazole. ALLERGIES: He notes allergies to PENICILLIN and NAPROSYN. FAMILY HISTORY: Significant for heart disease and cancer. SOCIAL HISTORY: Significant for previous tobacco use. REVIEW OF SYSTEMS: Sixteen-point review of systems is otherwise reviewed and is noncontributory. PHYSICAL EXAMINATION: On examination, the patient is approximately 6 feet tall, 175 pounds of mesomorphic habitus. HEENT exam is nonfocal. Neck is supple. He is nontender about the right shoulder elbow and wrist. On examination of right hand, he does have a partial amputation of the 4th digit distal tip. His 3rd digit radial laceration over the proximal phalanx appears well approximated. Light touch is intact throughout the 3rd digit. He does fire the FDS, FDP, an EDC of the 3rd digit. X-rays of the right hand from emergency room showed evidence of a ring finger distal amputation through the base of the distal phalanx. IMPRESSION: 1. Right ring finger partial amputation. 2. Right 3rd digit laceration. 3. History of chronic obstructive pulmonary disease. 4. History of chronic with lymphocytic leukemia. RECOMMENDATIONS: I talked to the patient and his regarding his condition and treatment options. At this point, I recommend proceeding with amputation revision of the right ring finger. The risks and benefits were discussed at length in layman's terms. We will likely perform that as an outpatient procedure. MMODL / IJN: [id number] /
[2021-01-16] MEDS ORDERED: ONDANSETRON 4 MG/2 ML VIAL ONE (11:17)
[2021-01-16] MEDS ORDERED: LACTATED RINGERS 1,000 ML IV ONE (11:36)
[2021-01-16] MEDS ORDERED: ONDANSETRON 4 MG/2 ML VIAL IVP ONE (11:37)
[2021-01-16] MEDS ORDERED: DEXAMETHASONE SOD PHOSPHATE 4 MG/ML 1 ML VIAL IVP ONE (11:37)
[2021-01-16] MEDS ORDERED: IPRATROPIUM-ALBUTEROL 3 ML NEB INHALATION STA (11:59)
[2021-01-16 12:28] LABS: Potassium 4.4 mmol/L (3.5-5.1)
[2021-01-16 12:29] LABS: African American GFR (CKD) >90 (>60 ml/min/1.73 sqM); Anion Gap 5 mmol/L; Basophils # (A) 0.1 k/uL (0-0.2); Basophils % (A) 1 %; Blood Urea Nitrogen 11 mg/dL (9-20); Calcium 9.1 mg/dL (8.4-10.2); Carbon Dioxide 25 mmol/L (22-30); Chloride 107 mmol/L (98-107); Eosinophils # (A) 0.1 k/uL (0-0.7); Eosinophils % (A) 1 %; Glucose 102 mg/dL (74-99); HCT 41.2 % (39.0-53.0); HGB 14.8 gm/dL (13.0-17.5); Lymphocytes # (A) 4.8 k/uL (1.0-4.8); Lymphocytes % (A) 44 %; MCH 32.7 pg (25.0-35.0); MCHC 35.8 g/dL (31.0-37.0); MCV 91.3 fL (80.0-100.0); Mean Platelet Volume 7.4; Monocytes # (A) 0.7 k/uL (0-1.0); Monocytes % (A) 6 %; Neutrophils # (A) 5.1 k/uL (1.3-7.7); Neutrophils % (A) 46 %; Non-African American GFR(CKD) >90 (>60 ml/min/1.73 sqM); Platelet Count 174 k/uL (150-450); RBC 4.52 m/uL (4.30-5.90); RDW 13.5 % (11.5-15.5); Sodium 137 mmol/L (137-145); WBC 11.1 k/uL (3.8-10.6)
[2021-01-16] MEDS ORDERED: fentaNYL (PF) 50 MCG/ML 2 ML AMP ONE (13:12)
[2021-01-16] MEDS ORDERED: PROPOFOL 10 MG/ML 20 ML VIAL IV ONE (13:12)
[2021-01-16] MEDS ORDERED: LIDOCAINE 1% INJ 10MG/ML (20 ML MDV) ONE (13:12)
[2021-01-16] MEDS ORDERED: MIDAZOLAM 2 MG/2 ML VIAL ONE (13:12)
[2021-01-16] MEDS ORDERED: BUPIVACAINE (PF) 0.25% 30 ML VIAL SQ ONE (13:32)
--- NOTE | 2021-01-16 14:26 | P.OP ---
Date of Procedure: 01/16/21 Preoperative Diagnosis: Right ring finger partial amputation/irrigation and debridement right ring finger Postoperative Diagnosis: Same Procedure(s) Performed: Revision amputation right ring finger Anesthesia: JASSI, local Surgeon: Toni Marx Estimated Blood Loss (ml): 5 Pathology: other (Bone fragments) Condition: stable Disposition: PACU Indications for Procedure: The patient's a 65-year-old male presents after injuring his right ring finger in a log splitter 2 days ago with a partial amputation of his ring finger with exposed bone involving the distal phalanx. A discussion of the risks and benefits of operative intervention was made with patient. Operative options were discussed to include revision amputation with bony shortening versus referral to a hand specialist for possible flap placement. He opted to proceed with shortening. Specific risks to include infection, wound complications, possible need for subsequent procedures was discussed. Informed consent was obtained. Operative Findings: As below Description of Procedure: The patient was brought to the operating room, and after induction of general anesthesia the right upper extremity was prepped and draped in normal fashion. A Thee drain was used as a tourniquet on the ring finger. The wound was inspected. The remaining distal phalanx was exposed on the radial aspect involving the DIP joint. The nailbed was almost completely absent. The distal phalanx was exposed and removed. I evaluated the soft tissues and decided further shortening was needed for adequate soft tissue coverage. The middle phalanx was resected at the neck. The wounds were then copiously irrigated. The wound edges were sharply debrided with a scalpel. The ulnar tissue was then brought over radially and loosely reapproximated with simple 5-0 nylon suture. I felt it was adequately able to cover the bony surfaces. Dogears were then resected shaping the distal tip. The tourniquet was then removed. A digital block was placed utilizing 10 mL of quarter percent plain Marcaine. A sterile dressing was applied. Patient was then awoken from general anesthesia and transferred to the recovery room in good condition. Blood loss was estimated at 5 mL. No complications were incurred. Sponge and needle counts were correct at the end of the case.
[2021-01-16 14:34] VITALS: TEMP 97.5
[2021-01-16 15:27] VITALS: RESP 16
[2021-01-16 15:29] VITALS: BP 144/87; PULSE 77
== END 2021-01-16 15:51 | disposition home or self-care (01) ==
LOC: OR 10:49
PROVIDERS: ATTEND Orthopaedic Surgery
DX: Z89.021 Acquired absence of right finger(s) (principal); I10 Essential (primary) hypertension; E78.5 Hyperlipidemia, unspecified; J44.9 Chronic obstructive pulmonary disease, unspecified; F41.8 Other specified anxiety disorders; K21.9 Gastro-esophageal reflux disease without esophagitis; F17.200 Nicotine dependence, unspecified, uncomplicated
CPT/HCPCS: 26951; 64450; 94640; 80048; 85025; J2250; J1100; J0690; J2405; J2001; J3010; J2704; 88304; 88311

== ENCOUNTER 2022-10-18 00:36 | Inpatient (IN) | payer MEDICARE ==
[2022-10-18] MEDS ORDERED: ALBUTEROL NEBULIZED 2.5 MG/3 ML INHALATION STA (00:56)
[2022-10-18] MEDS ORDERED: DEXAMETHASONE SOD PHOSPHATE 10 MG/ML 1 ML VIAL IVP STA (00:56)
[2022-10-18] MEDS ORDERED: IPRATROPIUM 0.5 MG/2.5 ML NEBU INHALATION STA (00:56)
[2022-10-18 01:16] LABS: Basophils # (A) 0.1 k/uL (0-0.2); Basophils % (A) 0 %; Eosinophils # (A) 0.1 k/uL (0-0.7); Eosinophils % (A) 0 %; HCT 40.8 % (39.0-53.0); HGB 13.8 gm/dL (13.0-17.5); Lymphocytes # (A) 10.8 k/uL (1.0-4.8); Lymphocytes % (A) 44 %; MCH 30.1 pg (25.0-35.0); MCHC 33.9 g/dL (31.0-37.0); MCV 88.8 fL (80.0-100.0); Mean Platelet Volume 7.4; Monocytes # (A) 0.6 k/uL (0-1.0); Monocytes % (A) 3 %; Neutrophils # (A) 12.1 k/uL (1.3-7.7); Neutrophils % (A) 49 %; Platelet Count 191 k/uL (150-450); RBC 4.59 m/uL (4.30-5.90); RDW 13.6 % (11.5-15.5); WBC 24.6 k/uL (3.8-10.6)
--- NOTE | 2022-10-18 01:19 | XR ---
EXAM: XR Chest, 2 Views CLINICAL HISTORY: ITS.REASON XR Reason: SOB TECHNIQUE: Frontal and lateral views of the chest. COMPARISON: No relevant prior studies available. FINDINGS: Lungs: Airspace consolidations in the LEFT mid-lower lung kelley, concerning for multifocal pneumonia. Pleural space: Unremarkable. No pneumothorax. Heart: Unremarkable. No cardiomegaly. Mediastinum: Unremarkable. Bones/joints: Unremarkable. IMPRESSION: Airspace consolidations in the LEFT mid-lower lung kelley, concerning for multifocal pneumonia.
[2022-10-18 01:20] LABS: ALT 17 U/L (4-49); AST 24 U/L (17-59); African American GFR (CKD) >90 (>60 ml/min/1.73 sqM); Albumin 3.9 g/dL (3.5-5.0); Alkaline Phosphatase 48 U/L (38-126); Anion Gap 11 mmol/L; Blood Urea Nitrogen 19 mg/dL (9-20); Calcium 8.3 mg/dL (8.4-10.2); Carbon Dioxide 25 mmol/L (22-30); Chloride 102 mmol/L (98-107); Glucose 150 mg/dL (74-99); Magnesium 1.4 mg/dL (1.6-2.3); Non-African American GFR(CKD) 90 (>60 ml/min/1.73 sqM); Potassium 3.9 mmol/L (3.5-5.1); Sodium 138 mmol/L (137-145); Total Bilirubin 0.8 mg/dL (0.2-1.3)
--- NOTE | 2022-10-18 02:54 | ED ---
General Adult HPI - General Chief complaint: Shortness of Breath Stated complaint: SOB Time Seen by Provider: 10/18/22 00:46 Source: patient Mode of arrival: ambulatory - History of Present Illness Initial comments: This is a 67-year-old male with a past mental history including COPD and hypertension presented to the emergency department via EMS for increasing shortness of breath. The patient stated that he felt as if it was his COPD that was worsening today so he came to the emergency department for evaluation. The patient did state that over the last several hours his breathing and become worse. The patient denied any fevers and chills but stated that he did feel tremulous as he did receive a breathing treatment via EMS on arrival. The patient denied any lightheadedness or dizziness however. - Related Data Home Medications Medication Instructions Recorded Confirmed Atorvastatin [Lipitor] 80 mg PO HS 12/05/16 01/15/21 Albuterol Nebulized [Ventolin 2.5 mg INHALATION RT-TID PRN 01/05/20 01/15/21 Nebulized] Fluticasone Propion/Salmeterol 1 puff INHALATION RT-BID 01/05/20 01/15/21 [Advair 500-50 Diskus] Losartan [Cozaar] 100 mg PO HS 01/05/20 01/15/21 Pantoprazole Sodium [Protonix] 40 mg PO DAILY 01/05/20 01/15/21 Acetaminophen-Codeine 300-30mg 1 - 2 tab PO Q4-6H PRN 01/15/21 01/15/21 [Tylenol w/codeine #3] Tamsulosin [Flomax] 0.4 mg PO DAILY 01/15/21 01/15/21 Previous Rx's Medication Instructions Recorded Albuterol Sulfate [Ventolin HFA] 2 puff INHALATION RT-Q4H PRN #1 01/08/20 inhaler Cephalexin [Keflex] 500 mg PO Q6HR 7 Days #28 cap 01/14/21 Allergies Allergy/AdvReac Type Severity Reaction Status Date / Time naproxen Allergy Itching Verified 01/16/21 11:24 Penicillins Allergy Unknown Verified 01/16/21 11:24 Childhood Review of Systems ROS Statement: Those systems with pertinent positive or pertinent negative responses have been documented in the HPI. ROS Other: All systems not noted in ROS Statement are negative. Past Medical History Past Medical History: Cancer, COPD, GERD/Reflux, Hyperlipidemia, Hypertension, Musculoskeletal Disorder, Pneumonia Additional Past Medical History / Comment(s): Bronchitis, exacerbation of COPD w/pneumonia in fall of 2019, occasional lower back pain, dx. w/CLL in fall 2019- no current tx.-sees Dr. Ann, injury to right ring finger by a log splitter 01-14-21-drsg. w/gauze History of Any Multi-Drug Resistant Organisms: None Reported Past Surgical History: Unable to Obtain Additional Past Surgical History / Comment(s): colonoscopy w/polypectomy Past Anesthesia/Blood Transfusion Reactions: No Reported Reaction Past Psychological History: Anxiety Smoking Status: Former smoker Past Alcohol Use History: None Reported Past Drug Use History: None Reported - Past Family History Father Family Medical History: Coronary Artery Disease (CAD) Additional Family Medical History / Comment(s): Father at the age of 74 yrs. Mother Family Medical History: Coronary Artery Disease (CAD) Additional Family Medical History / Comment(s): Mother had CABG. She in her 70s. General Exam Limitations: no limitations General appearance: alert, in no apparent distress Head exam: Present: atraumatic, normocephalic, normal inspection Eye exam: Present: normal appearance, PERRL Pupils: Present: normal accommodation ENT exam: Present: normal exam, normal oropharynx, mucous membranes moist Neck exam: Present: normal inspection, full ROM Respiratory exam: Present: wheezes, decreased breath sounds Cardiovascular Exam: Present: normal rhythm, tachycardia GI/Abdominal exam: Present: soft, normal bowel sounds Extremities exam: Present: normal inspection, full ROM Back exam: Present: normal inspection, full ROM Neurological exam: Present: alert, oriented X3, CN II-XII intact Psychiatric exam: Present: normal affect, normal mood Skin exam: Present: warm, dry Course Vital Signs 10/18/22 10/18/22 10/18/22 01:01 01:54 02:04 Temperature 98 F Pulse Rate 130 H 122 H 118 H Respiratory 22 18 Rate Blood Pressure 129/75 129/75 O2 Sat by Pulse 98 98 Oximetry 10/18/22 02:21 Temperature Pulse Rate 120 H Respiratory Rate Blood Pressure O2 Sat by Pulse Oximetry EKG Findings - EKG Comments: EKG Findings:: In EKG was obtained and was interpreted by myself showing a rate of 131, VA interval 144, QR yarsani of 86 and QTC of 376. This EKG showed a sinus tachycardia with no ST segment elevation or depression noted. Medical Decision Making - Medical Decision Making Was pt. sent in by a medical professional or institution (MAHESH Chapa, PERSONNEL RESEARCH PSYCHOLOGIST, urgent care, hospital, or senior care...) When possible be specific @ -No Did you speak to anyone other than the patient for history (EMS, parent, family, police, friend...)? What history was obtained from this source @ -No Did you review nursing and triage notes (agree or disagree)? Why? @ -I reviewed and agree with nursing and triage notes Were old charts reviewed (outside hosp., previous admission, EMS record, old EKG, old radiological studies, urgent care reports/EKG's, senior care records)? Report findings @ -No old charts were reviewed Differential Diagnosis (chest pain, altered mental status, abdominal pain women, abdominal pain men, vaginal bleeding, weakness, fever, dyspnea, syncope, headache, dizziness, GI bleed, back pain, seizure, CVA, palpatations, mental health)? @ -Pneumonia, pneumothorax, ACS, COPD exacerbation EKG interpreted by me (3pts min.). @ -As above X-rays interpreted by me (1pt min.). @ -Chest x-ray was obtained and was interpreted by myself showing airspace consolidations the left mid lung kelley concerning for multifocal pneumonia CT interpreted by me (1pt min.). @ -None done U/S interpreted by me (1pt. min.). @ -None done What testing was considered but not performed or refused? (CT, X-rays, U/S, labs)? Why? @ -None What meds were considered but not given or refused? Why? @ -None Did you discuss the management of the patient with other professionals (professionals i.e. MAHESH Chapa, PERSONNEL RESEARCH PSYCHOLOGIST, lab, RT, psych nurse, social media assistant, embedded software design engineer, teacher, correction officer reformatory, case maker)? Give summary @ -Yes, admitting physician was contacted regarding admission. Was smoking cessation discussed for >3mins.? @ -No Was critical care preformed (if so, how long)? @ -No Were there social determinants of health that impacted care today? How? (Homelessness, low income, unemployed, alcoholism, drug addiction, transportation, low edu. Level, literacy, decrease access to med. care, senior living, rehab)? @ -No Was there de-escalation of care discussed even if they declined (Discuss DNR or withdrawal of care, Hospice)? DNR status @ -No What co-morbidities impacted this encounter? (DM, HTN, Smoking, COPD, CAD, Canc er, CVA, ARF, Chemo, Hep., AIDS, mental health diagnosis, sleep apnea, morbid obesity)? @ -COPD, hypertension Was patient admitted / discharged? Hospital course, mention meds given and route, prescriptions, significant lab abnormalities, going to OR and other pe rtinent info. @ -The patient was seen and evaluated in emergency department. Physical exam, the patient was resting in bed in mild respiratory distress. Vital signs admission showed tachycardia. Due to the nature of the patient's breathing status, the patient received albuterol, ipratropium as well as Decadron. Laboratory workup was also obtained as was a chest x-ray. Laboratory workup showed a severely elevated white blood cell count of 25 as well as a chest x-ray that showed likely multifocal pneumonia. The patient was given levofloxacin IV as well as blood cultures obtained. Due to the patient's respiratory status in the setting of multifocal pneumonia, the patient will be admitted for further workup and evaluation. On reevaluation, the patient had improvement of his breathing and did agree to this plan. The patient was admitted in stable condition. Undiagnosed new problem with uncertain prognosis? @ -No Drug Therapy requiring intensive monitoring for toxicity (Heparin, Nitro, Insulin, Cardizem)? @ -No Were any procedures done? @ -No Diagnosis/symptom? @ -Multifocal pneumonia, COPD exacerbation Acute, or Chronic, or Acute on Chronic? @ -Acute Uncomplicated (without systemic symptoms) or Complicated (systemic symptoms)? @ -Complicated Side effects of treatment? @ -No Exacerbation, Progression, or Severe Exacerbation? @ -Exacerbation Poses a threat to life or bodily function? How? (Chest pain, [place], [place], pneumonia, PE, COPD, DKA, ARF, appy, cholecystitis, CVA, Diverticulitis, Homicidal, Suicidal, threat to staff... and all critical care pts) @ -Yes, worsening multifocal pneumonia can lead to end organ damage and possible . - Lab Data Result diagrams: 10/18/22 00:52 10/18/22 00:52 Lab Results 10/18/22 10/18/22 10/18/22 Range/Units 00:52 00:52 00:52 WBC 24.6 H (3.8-10.6) k/uL RBC 4.59 (4.30-5.90) m/uL Hgb 13.8 (13.0-17.5) gm/dL Hct 40.8 (39.0-53.0) % MCV 88.8 (80.0-100.0) fL MCH 30.1 (25.0-35.0) pg MCHC 33.9 (31.0-37.0) g/dL RDW 13.6 (11.5-15.5) % Plt Count 191 (150-450) k/uL MPV 7.4 Sodium 138 (137-145) mmol/L Potassium 3.9 (3.5-5.1) mmol/L Chloride 102 (98-107) mmol/L Carbon Dioxide 25 (22-30) mmol/L Anion Gap 11 mmol/L BUN 19 (9-20) mg/dL Creatinine 0.83 (0.66-1.25) mg/dL Est GFR (CKD-EPI)AfAm >90 (>60 ml/min/1.73 sqM) Est GFR (CKD-EPI)NonAf 90 (>60 ml/min/1.73 sqM) Glucose 150 H (74-99) mg/dL Calcium 8.3 L (8.4-10.2) mg/dL Magnesium 1.4 L (1.6-2.3) mg/dL Total Bilirubin 0.8 (0.2-1.3) mg/dL AST 24 (17-59) U/L ALT 17 (4-49) U/L Alkaline Phosphatase 48 (38-126) U/L Troponin I <0.012 (0.000-0.034) ng/mL NT-Pro-B Natriuret Pep pg/mL Total Protein 6.0 L (6.3-8.2) g/dL Albumin 3.9 (3.5-5.0) g/dL 10/18/22 Range/Units 00:52 WBC (3.8-10.6) k/uL RBC (4.30-5.90) m/uL Hgb (13.0-17.5) gm/dL Hct (39.0-53.0) % MCV (80.0-100.0) fL MCH (25.0-35.0) pg MCHC (31.0-37.0) g/dL RDW (11.5-15.5) % Plt Count (150-450) k/uL MPV Sodium (137-145) mmol/L Potassium (3.5-5.1) mmol/L Chloride (98-107) mmol/L Carbon Dioxide (22-30) mmol/L Anion Gap mmol/L BUN (9-20) mg/dL Creatinine (0.66-1.25) mg/dL Est GFR (CKD-EPI)AfAm (>60 ml/min/1.73 sqM) Est GFR (CKD-EPI)NonAf (>60 ml/min/1.73 sqM) Glucose (74-99) mg/dL Calcium (8.4-10.2) mg/dL Magnesium (1.6-2.3) mg/dL Total Bilirubin (0.2-1.3) mg/dL AST (17-59) U/L ALT (4-49) U/L Alkaline Phosphatase (38-126) U/L Troponin I (0.000-0.034) ng/mL NT-Pro-B Natriuret Pep 298 pg/mL Total Protein (6.3-8.2) g/dL Albumin (3.5-5.0) g/dL Disposition Clinical Impression: Multifocal pneumonia, COPD exacerbation Disposition: ADMITTED IP TO THIS [facility] Condition: Stable Is patient prescribed a controlled substance at d/c from ED?: No Referrals: Khoi Alejo DO [Primary Care Provider] - 1-2 days Time of Disposition: 03:00 Decision to Admit Reason: Admit from EC Decision Date: 10/18/22 Decision Time: 03:00
[2022-10-18] MEDS ORDERED: NALOXONE 0.4 MG/ML 1 ML VIAL IV PRN (03:29)
[2022-10-18] MEDS ORDERED: LEVOFLOXACIN 750MG-D5W PMX 750 MG in DEXTROSE/WATER 1 150ML.BAG IVPB ONE (03:30)
[2022-10-18] MEDS ORDERED: IPRATROPIUM-ALBUTEROL 3 ML NEB INHALATION PRN (07:49)
[2022-10-18] MEDS: SYMBICORT 80-4.5 MCG INHALER INHALATION SCH ×2 (08:57→20:15)
[2022-10-18] MEDS: IPRATROPIUM-ALBUTEROL 3 ML NEB INHALATION SCH ×4 (08:57→20:15)
[2022-10-18] MEDS: PANTOPRAZOLE 40 MG TABLET PO SCH (10:12)
[2022-10-18] MEDS: TAMSULOSIN 0.4 MG CAP.ER.24H PO SCH (10:12)
[2022-10-18] MEDS: ENOXAPARIN 40 MG/0.4 ML SYRINGE SQ SCH (10:12)
[2022-10-18] MEDS: AZITHROMYCIN 500 MG TAB PO SCH (10:12)
--- NOTE | 2022-10-18 11:05 | P.CNPUL ---
History of Present Illness Consult date: 10/18/22 Reason for consult: COPD History of present illness: This is a 67-year-old male with a past mental history including COPD and hypertension and addition to history of chronic lymphocytic leukemia presented to the emergency department via EMS for increasing shortness of breath. The patient stated that he felt as if it was his COPD that was worsening today so he came to the emergency department for evaluation. The patient did state that over the last several hours his breathing and become worse. The patient denied any fevers and chills but stated that he did feel tremulous as he did receive a breathing treatment via EMS on arrival. The patient denied any lightheadedness or dizziness however. He had no significant sputum production patient is currently on room air oxygen. He has developed leukocytosis with a white cell count of 24 with a hemoglobin of 15.8. Note that his leukocytosis essentially lymphocytosis could be related to his underlying CLL. Chest x-ray shows possibility of left lower lobe pulmonary infiltrate. Rest of the electrolytes are within normal limits. The patient is currently on accommodation of Levaquin and Zithromax. No previous history of DVT or pulmonary embolism. The patient is an ex-smoker. He has been maintained on Advair Diskus in addition to albuterol on an as-needed basis yet nebulizer. Review of Systems Constitutional: Reports fatigue, Reports lethargy Eyes: denies as per HPI, denies blurred vision, denies bulging eye, denies decreased vision, denies diplopia, denies discharge, denies dry eye, denies irritation, denies itching, denies pain, denies photophobia, denies loss of peripheral vision, denies loss of vision, denies tunnel vision/blind spots Ears: deny: decreased hearing, ear discharge, earache, tinnitus Ears, nose, mouth and throat: Reports as per HPI Breasts: absent: as per HPI, gynecomastia Cardiovascular: Reports decreased exercise tolerance Respiratory: Reports cough, Reports dyspnea, Reports wheezing Gastrointestinal: Reports as per HPI Genitourinary: Reports as per HPI Musculoskeletal: Reports as per HPI Musculoskeletal: absent: ankle pain, ankle stiffness, ankle swelling, as per HPI, elbow pain, elbow stiffness, elbow swelling, foot pain, foot stiffness, foot swelling, hand pain, hand stiffness, hand swelling, hip pain, hip stiffness, hip swelling, knee pain, knee stiffness, knee swelling, shoulder pain, shoulder stiffness, shoulder swelling, wrist pain, wrist stiffness, wrist swelling Integumentary: Reports as per HPI Neurological: Reports as per HPI Psychiatric: Reports as per HPI Endocrine: Reports as per HPI Hematologic/Lymphatic: Reports as per HPI Allergic/Immunologic: Reports as per HPI Past Medical History Past Medical History: Cancer (CLL), COPD, GERD/Reflux, Hyperlipidemia, Hypertension, Musculoskeletal Disorder, Pneumonia Additional Past Medical History / Comment(s): Bronchitis, exacerbation of COPD w/pneumonia in fall 2019, occasional lower back pain, dx. w/CLL in fall 2019- no current tx.-sees Dr. Ann, injury to right ring finger by a log splitter 01-14-21-drsg. w/gauze History of Any Multi-Drug Resistant Organisms: None Reported Past Surgical History: Unable to Obtain Additional Past Surgical History / Comment(s): colonoscopy w/polypectomy Past Anesthesia/Blood Transfusion Reactions: No Reported Reaction Past Psychological History: Anxiety Smoking Status: Former smoker Past Alcohol Use History: None Reported Past Drug Use History: None Reported - Past Family History Father Family Medical History: Coronary Artery Disease (CAD) Additional Family Medical History / Comment(s): Father at the age of 74 yrs. Mother Family Medical History: Coronary Artery Disease (CAD) Additional Family Medical History / Comment(s): Mother had CABG. She in her 70s. Medications and Allergies Home Medications Medication Instructions Recorded Confirmed Type Atorvastatin [Lipitor] 80 mg PO HS 12/05/16 01/15/21 History Albuterol Nebulized [Ventolin 2.5 mg INHALATION RT-TID PRN 01/05/20 01/15/21 History Nebulized] Fluticasone Propion/Salmeterol 1 puff INHALATION RT-BID 01/05/20 01/15/21 Histor y [Advair 500-50 Diskus] Losartan [Cozaar] 100 mg PO HS 01/05/20 01/15/21 History Pantoprazole Sodium [Protonix] 40 mg PO DAILY 01/05/20 01/15/21 History Albuterol Sulfate [Ventolin HFA] 2 puff INHALATION RT-Q4H PRN #1 01/08/20 01/15/21 Rx inhaler Cephalexin [Keflex] 500 mg PO Q6HR 7 Days #28 cap 01/14/21 01/15/21 Rx Acetaminophen-Codeine 300-30mg 1 - 2 tab PO Q4-6H PRN 01/15/21 01/15/21 History [Tylenol w/codeine #3] Tamsulosin [Flomax] 0.4 mg PO DAILY 01/15/21 01/15/21 History Allergies Allergy/AdvReac Type Severity Reaction Status Date / Time naproxen Allergy Itching Verified 01/16/21 11:24 Penicillins Allergy Unknown Verified 01/16/21 11:24 Childhood Physical Exam Vitals: Vital Signs Temp Pulse Resp BP Pulse Ox 10/18/22 09:05 101 H 18 10/18/22 08:58 100 18 10/18/22 08:24 98.1 F 98 18 117/76 93 L 10/18/22 05:55 18 98 10/18/22 02:21 120 H 10/18/22 02:04 118 H 10/18/22 01:54 122 H 18 129/75 98 10/18/22 01:01 98 F 130 H 22 129/75 98 Intake and Output 10/17/22 10/18/22 10/18/22 22:59 06:59 14:59 Other: Weight 75.296 kg GENERAL EXAM: Alert, active, very pleasant 64-year-old gentleman, on RA comfortable in no apparent distress. HEAD: Normocephalic. EYES: Normal reaction of pupils, equal size. NOSE: Clear with pink turbinates. THROAT: No erythema or exudates. NECK: No masses, no JVD. CHEST: No chest wall deformity. LUNGS: Equal air entry with few scattered rhonchi, basilar crackles. CVS: S1 and S2 normal with no audible murmur, regular rhythm. ABDOMEN: No hepatosplenomegaly, normal bowel sounds, no guarding or rigidity. SPINE: No scoliosis or deformity SKIN: No rashes CENTRAL NERVOUS SYSTEM: No focal deficits, tone is normal in all 4 extremities. EXTREMITIES: There is no peripheral edema. No clubbing, no cyanosis. Peripheral pulses are intact. Results - Laboratory Findings CBC and BMP: 10/18/22 00:52 10/18/22 00:52 Abnormal lab findings: Abnormal Labs 10/18/22 10/18/22 00:52 00:52 WBC 24.6 H Neutrophils # 12.1 H Lymphocytes # 10.8 H Glucose 150 H Calcium 8.3 L Magnesium 1.4 L Total Protein 6.0 L - Diagnostic Findings Chest x-ray: image reviewed Assessment and Plan Plan: Acute exacerbation of chronic obstructive pulmonary disease, suspected left lower lobe pneumonia Chronic COPD with an FEV1 of 77% predicted at baseline CLL with ongoing issues with leukocytosis and lymphocytosis Hypertension Hyperlipidemia Previous episodes of pneumonia History of smoking Plan Continue current antibiotic coverage Check pro calcitonin level Proceed with a CT of the chest Continue DuoNeb about treatments [id number] and IV Solu-Medrol Lovenox for DVT prophylaxis We'll follow
[2022-10-18] MEDS: methylPREDNISolone SOD SUCCI 125 MG/2 ML VIAL IV SCH ×3 (13:03→23:59)
--- NOTE | 2022-10-18 15:33 | P.HPIM ---
History of Present Illness H&P Date: 10/18/22 Patient is a 67-year-old male with PMH of CLL, COPD, hypertension, dyslipidemia, BPH the presents ED for sudden onset shortness of breath that started yesterday. He also reports subjective fever and chills. He denies any cough. He denies any chest pain. He denies any headache, lower extremity edema, nausea or vomiting, palpitations, changes in urination or bowel habits. No changes in appetite or weight. He denies any dizziness, numbness/weakness/tingling of the extremities. In the ED, he was noted to be tachycardic with heart rate of 1:30 requiring 4 L nasal cannula to maintain saturation greater than 92%. CBC showed leukocytosis of 24.6. CMP showed glucose 150, calcium of 8.3. Magnesium was 1.4. Troponin was less than 0.012. BNP was 298. Chest x-ray showed airspace consolidation concerning for multifocal pneumonia. EKG showed sinus tachycardia with heart rate of 131. Patient is admitted for sepsis related to community acquired pneumonia. Pertinent positives and negatives as discussed in HPI, a complete review of systems was performed and all other systems are negative. General: non toxic, no distress, appears at stated age Derm: warm, dry Head: atraumatic, normocephalic, symmetric Eyes: EOMI, no lid lag, anicteric sclera Mouth: no lip lesion, mucus membranes moist Cardiovascular: Tachycardia, no murmur Lungs: Decreased breath sounds bilateral, no rhonchi, no rales , no accessory muscle use Abdominal: soft, nontender to palpation, no guarding, no appreciable organomegaly Ext: no gross muscle atrophy, no edema, no contractures Neuro: no focal neuro deficits Psych: Alert, oriented, appropriate affect Acute hypoxic respiratory failure COPD exacerbation Sepsis related to community-acquired pneumonia Hypomagnesemia Chronic conditions: CLL, hypertension, dyslipidemia, BPH Based on my assessment of this patient, this patient meets a high complexity level of care. Patient has a COPD with severe exacerbation or progression of disease complicated with multifocal pneumonia which poses a threat to life or bodily function. Patient is currently on room air. He'll be started on levofloxacin 750 mg IV daily along with azithromycin 500 mg by mouth daily for treatment of pneumonia. Blood culture collected along with pro-calcitonin and Legionella antigen. Sputum culture ordered. Continue telemetry monitoring. Pulmonology has been consulted for further management of this patient. Bronchodilators: DuoNeb 0.5mg-3mg/3ml scheduled and as needed for SOB and wheezing. Symbicort 2 puff BID. Steroids: SoluMedrol 60 mg IV Q6H. Supplemental oxygen to maintain O2 > 92%. Lovenox SQ for DVT prophylaxis. Patient would like to be full code. I have reviewed the following data migration consultant notes: None. I have reviewed the results of the following tests: CBC showed leukocytosis of 24.6. CMP showed glucose 150, calcium of 8.3. Magnesium was 1.4. Troponin was less than 0.012. BNP was 298. I have ordered the following tests: None. I have discussed the care of this patient with the following independent historian: None. I have independently interpreted the following test below: Chest x-ray showed airspace consolidation concerning for multifocal pneumonia. EKG showed sinus tachycardia with heart rate of 131. I have discussed the management of this patient with the following physician: None. Past Medical History Past Medical History: Cancer (CLL), COPD, GERD/Reflux, Hyperlipidemia, Hypertension, Musculoskeletal Disorder, Pneumonia Additional Past Medical History / Comment(s): Bronchitis, exacerbation of COPD w/pneumonia in fall of 2019, occasional lower back pain, dx. w/CLL in fall 2019- no current tx.-sees Dr. Ann, injury to right ring finger by a log splitter 01-14-21-drsg. w/gauze History of Any Multi-Drug Resistant Organisms: None Reported Past Surgical History: Unable to Obtain Additional Past Surgical History / Comment(s): colonoscopy w/polypectomy Past Anesthesia/Blood Transfusion Reactions: No Reported Reaction Past Psychological History: Anxiety Smoking Status: Former smoker Past Alcohol Use History: None Reported Past Drug Use History: None Reported - Past Family History Father Family Medical History: Coronary Artery Disease (CAD) Additional Family Medical History / Comment(s): Father at the age of 74 yrs. Mother Family Medical History: Coronary Artery Disease (CAD) Additional Family Medical History / Comment(s): Mother had CABG. She in her 70s. Medications and Allergies Home Medications Medication Instructions Recorded Confirmed Type Albuterol Nebulized [Ventolin 2.5 mg INHALATION RT-Q6H PRN 01/04/10/18/22 History Nebulized] Fluticasone Propion/Salmeterol 1 puff INHALATION RT-BID 01/05/20 10/18/22 History [Advair 500-50 Diskus] Pantoprazole Sodium [Protonix] 40 mg PO DAILY 01/05/20 10/18/22 History Albuterol Sulfate [Ventolin HFA] 2 puff INHALATION RT-Q4H PRN #1 01/08/20 10/18/22 Rx inhaler Atorvastatin [Lipitor] 80 mg PO DAILY 10/18/22 10/18/22 History Doxazosin [Cardura] 4 mg PO DAILY 10/18/22 10/18/22 History Finasteride 1 mg PO DAILY 10/18/22 10/18/22 History Losartan Potassium 100 mg PO DAILY 10/18/22 10/18/22 History predniSONE See Taper PO DIRECTED 10/18/22 10/18/22 History Allergies Allergy/AdvReac Type Severity Reaction Status Date / Time naproxen Allergy Itching Verified 10/18/22 11:53 Penicillins Allergy Unknown Verified 10/18/22 11:53 Childhood Physical Exam Vitals: Vital Signs Temp Pulse Resp BP Pulse Ox 10/18/22 12:00 106 H 18 10/18/22 10:15 100 16 134/76 95 10/18/22 09:05 101 H 18 10/18/22 08:58 100 18 10/18/22 08:24 98.1 F 98 18 117/76 93 L 10/18/22 05:55 18 98 10/18/22 02:21 120 H 10/18/22 02:04 118 H 10/18/22 01:54 122 H 18 129/75 98 10/18/22 01:01 98 F 130 H 22 129/75 98 Intake and Output 10/17/22 10/18/22 10/18/22 22:59 06:59 14:59 Other: Weight 75.296 kg Results CBC & Chem 7: 10/18/22 00:52 10/18/22 00:52 Labs: Abnormal Lab Results - Last 24 Hours (Table) 10/18/22 10/18/22 Range/Units 00:52 00:52 WBC 24.6 H (3.8-10.6) k/uL Neutrophils # 12.1 H (1.3-7.7) k/uL Lymphocytes # 10.8 H (1.0-4.8) k/uL Glucose 150 H (74-99) mg/dL Calcium 8.3 L (8.4-10.2) mg/dL Magnesium 1.4 L (1.6-2.3) mg/dL Total Protein 6.0 L (6.3-8.2) g/dL
--- NOTE | 2022-10-18 17:10 | CT ---
CT CHEST FOR PULMONARY EMBOLISM. EXAMINATION TYPE: CT chest angio for PE DATE OF EXAM: 10/18/2022 INDICATION: PE CT DLP: 282.7 mGycm, Automated exposure control for dose reduction was used. CONTRAST: Patient injected with 100 ml mL of Isovue 370. COMPARISON: 11/15/2020, 03/24/2020 TECHNIQUE: CT of the chest is performed on a spiral scan at 2 mm thick sections. Study is performed with intravenous contrast timed for evaluation for pulmonary embolism. This will limit additional po rtions of the evaluation. 3-D MIP images reconstructed by the technologist are reviewed on the compu ter in the coronal and sagittal planes. FINDINGS: No persistent filling defects are evident to suggest an acute pulmonary embolism. Subcarinal lymph node appears prominent estimated at 1.7 cm. There is ar left hilar lymph node measur ing 0.8 cm. Right hilar lymph node may be present measuring 0.9 cm. The ascending aorta diameter at the level of the main pulmonary artery is 3.4 cm. The main pulmonary artery diameter at the bifurcat ion is 2.4r cm. Bibasilar infiltrates are present. Correlate for atelectasis and pneumonia. Some underlying pulmonary fibrosis is likely present. There is pneumonitis changes within the left mid anterior lateral lung a nd left posterior midlung. There is an irregular hypodense area within the posterior right mid lobe liver measuring 6.5 x 8.6 cm . Previous measurement 6.7 x 8.6 cm. Hemangioma should be considered. There is a 1.1 cm lymph node in the left axillary region. There is a prominent curvilinear lymph node in the left axillary region. Additional shotty lymphadenopathy is within left axillary region. IMPRESSIONS: 1. No acute pulmonary embolism. 2. Bibasilar infiltrates and some areas of pneumonitis within the left anterior lateral and posterior mid left lung. 3. Enlarged subcarinal lymph node and prominent hilar lymphadenopathy. Enlarged left axillary adenopa thy is present . 4. Large heterogenous mass posterior right mid liver suspicious for hemangioma given the apparent sta bility.
[2022-10-18] MEDS ORDERED: LOSARTAN 50 MG TAB PO SCH (21:00)
[2022-10-18] MEDS ORDERED: ATORVASTATIN 80 MG TAB PO SCH (21:00)
[2022-10-19] MEDS ORDERED: LEVOFLOXACIN 750MG-D5W PMX 750 MG in DEXTROSE/WATER 1 150ML.BAG IVPB SCH (06:00)
[2022-10-19] MEDS: methylPREDNISolone SOD SUCCI 125 MG/2 ML VIAL IV SCH ×2 (06:23→12:38)
[2022-10-19] MEDS: IPRATROPIUM-ALBUTEROL 3 ML NEB INHALATION SCH ×3 (07:56→15:03)
[2022-10-19] MEDS: SYMBICORT 80-4.5 MCG INHALER INHALATION SCH (07:56)
[2022-10-19] MEDS: PANTOPRAZOLE 40 MG TABLET PO SCH (08:22)
[2022-10-19] MEDS: TAMSULOSIN 0.4 MG CAP.ER.24H PO SCH (08:22)
[2022-10-19] MEDS: AZITHROMYCIN 500 MG TAB PO SCH (08:22)
[2022-10-19] MEDS: ENOXAPARIN 40 MG/0.4 ML SYRINGE SQ SCH (08:23)
[2022-10-19] MEDS ORDERED: LOSARTAN 50 MG TAB PO SCH (09:00)
[2022-10-19] MEDS ORDERED: FINASTERIDE 5 MG TAB PO SCH (09:00)
[2022-10-19] MEDS ORDERED: ATORVASTATIN 80 MG TAB PO SCH (09:00)
[2022-10-19] MEDS ORDERED: DOXAZOSIN 4 MG TAB PO SCH (09:00)
[2022-10-19 09:23] LABS: HGB 13.6 gm/dL (13.0-17.5); MCH 30.2 pg (25.0-35.0); MCHC 33.1 g/dL (31.0-37.0); MCV 91.2 fL (80.0-100.0); Mean Platelet Volume 7.8; Platelet Count 196 k/uL (150-450); RDW 13.7 % (11.5-15.5); WBC 36.1 k/uL (3.8-10.6)
[2022-10-19 11:17] LABS: Lymphocytes # (M) 13.72 k/uL (1.0-4.8); Monocytes # (M) 0.72 k/uL (0-1.0); Neutrophils # (M) 21.66 k/uL (1.3-7.7); Neutrophils % (M) 60 %; Nucleated Red Blood Cells 0 /100 WBC (0-0); RBC Morphology Normal; Total Cells Counted 100
--- NOTE | 2022-10-19 13:09 | P.PN ---
Subjective Progress Note Date: 10/19/22 This is a 67-year-old male with a past mental history including COPD and hypertension and addition to history of chronic lymphocytic leukemia presented to the emergency department via EMS for increasing shortness of breath. The patient stated that he felt as if it was his COPD that was worsening today so he came to the emergency department for evaluation. The patient did state that over the last several hours his breathing and become worse. The patient denied any fevers and chills but stated that he did feel tremulous as he did receive a breathing treatment via EMS on arrival. The patient denied any lightheadedness or dizziness however. He had no significant sputum production patient is curre ntly on room air oxygen. He has developed leukocytosis with a white cell count of 24 with a hemoglobin of 15.8. Note that his leukocytosis essentially lymphocytosis could be related to his underlying CLL. Chest x-ray shows possibility of left lower lobe pulmonary infiltrate. Rest of the electrolytes are within normal limits. The patient is currently on accommodation of Levaquin and Zithromax. No previous history of DVT or pulmonary embolism. The patient is an ex-smoker. He has been maintained on Advair Diskus in addition to albuterol on an as-needed basis yet nebulizer. The patient is seen today 10/19/2022 in follow-up on the regular medical floor. He is currently sitting up in a chair at the bedside. Awake and alert in no acute distress. Maintaining O2 saturations in the 90s on room air. He's afebrile. Hemodynamically stable. CT angiogram ruled out pulmonary embolism. There is some bibasilar and some areas of pneumonitis in the left anterior lateral and posterior mental mid left lung. Enlarged subcarinal lymph node and prominent hilar lymphadenopathy. Enlarged left axillary adenopathy is present. Large heterogenous mass posterior right mid liver suspicious for hemangioma white count 36.1. Hemoglobin 13.6. Pro-calcitonin 1.55. Urine legionella antigen negative. Objective - Vital Signs Vital signs: Vital Signs Temp 97.8 F 10/19/22 07:40 Pulse 92 10/19/22 07:40 Resp 18 10/18/22 19:30 BP 119/72 10/19/22 07:40 Pulse Ox 94 L 10/19/22 07:40 FiO2 Intake & Output 10/18/22 10/19/22 10/19/22 18:59 06:59 18:59 Intake Total 480 240 Balance 480 240 Weight 75.296 kg Intake: Oral 480 240 Other: # Voids 1 1 - Exam GENERAL EXAM: Alert, pleasant 67-year-old male, on room air, comfortable in no apparent distress. HEAD: Normocephalic. EYES: Normal reaction of pupils, equal size. NOSE: Clear with pink turbinates. THROAT: No erythema or exudates. NECK: No masses, no JVD. CHEST: No chest wall deformity. LUNGS: Equal air entry with few scattered rhonchi, basilar crackles as. CVS: S1 and S2 normal with no audible murmur, regular rhythm. ABDOMEN: No hepatosplenomegaly, normal bowel sounds, no guarding or rigidity. SPINE: No scoliosis or deformity SKIN: No rashes CENTRAL NERVOUS SYSTEM: No focal deficits, tone is normal in all 4 extremities. EXTREMITIES: There is no peripheral edema. No clubbing, no cyanosis. Peripheral pulses are intact. - Labs CBC & Chem 7: 10/19/22 09:09 10/18/22 00:52 Labs: Abnormal Lab Results - Last 24 Hours (Table) 10/19/22 10/19/22 Range/Units 04:16 09:09 WBC 36.1 H (3.8-10.6) k/uL Neutrophils # (Manual) 21.66 H (1.3-7.7) k/uL Lymphocytes # (Manual) 13.72 H (1.0-4.8) k/uL Procalcitonin 1.55 H (0.02-0.09) ng/mL Assessment and Plan Assessment: Acute exacerbation of chronic obstructive pulmonary disease, suspected left lower lobe pneumonia Chronic COPD with an FEV1 of 77% predicted at baseline CLL with ongoing issues with leukocytosis and lymphocytosis Hypertension Hyperlipidemia Previous episodes of pneumonia History of smoking Plan: The patient was seen and evaluated Computed tomography scan, medications and labs reviewed Cleared for discharge from the pulmonary standpoint Complete a course of antibiotics Follow-up in the office in 1 week for repeat chest x-ray I have personally seen and examined the patient, performed the documentation and the assessment and plan as written. Number of minutes spent on the visit: 10.
[2022-10-19 13:48] VITALS: BP 102/57; PULSE 100; RESP 19; TEMP 97.5
--- NOTE | 2022-10-19 15:45 | P.DS ---
Providers Date of admission: 10/18/22 03:29 Expected date of discharge: 10/19/22 Attending physician: Killian Vargas MD Consults: 10/18/22 07:52 Consult Physician Routine Consulting Provider: Gely Dumont Consult Reason/Comments: PNA Do you want consulting provider notified?: Yes Primary care physician: [facility] Course: Patient is a 67-year-old male with PMH of CLL, COPD, hypertension, dyslipidemia, BPH the presents ED for sudden onset shortness of breath that started yesterday. He also reports subjective fever and chills. He denies any cough. He denies any chest pain. He denies any headache, lower extremity edema, nausea or vomiting, palpitations, changes in urination or bowel habits. No changes in appetite or weight. He denies any dizziness, numbness/weakness/tingling of the extremities. In the ED, he was noted to be tachycardic with heart rate of 1:30 requiring 4 L nasal cannula to maintain saturation greater than 92%. CBC showed leukocytosis of 24.6. CMP showed glucose 150, calcium of 8.3. Magnesium was 1.4. Troponin was less than 0.012. BNP was 298. Chest x-ray showed airspace consolidation concerning for multifocal pneumonia. EKG showed sinus tachycardia with heart rate of 131. Patient is admitted for sepsis related to community acquired pneumonia. Patient was started on levofloxacin, azithromycin, bronchodilators and Solu- Medrol. Pulmonology was consulted and followed the patient during his hospitalization. His respiratory status considerably improved with the mentioned treatment. Pulmonology cleared the patient for discharge on 10/19. Patient was seen and examined this morning. He reports feeling back to baseline. He is requesting to be discharged home. Patient be discharged home on azithromycin by mouth for another 3 days to complete a total of 5 days antibiotics. He will also be discharged home with a prednisone taper. Pertinent studies include chest x-ray, chest CTA. General: non toxic, no distress, appears at stated age Derm: warm, dry Head: atraumatic, normocephalic, symmetric Eyes: EOMI, no lid lag, anicteric sclera Cardiovascular: Normal S1 and S2, no murmur Lungs: Decreased breath sounds bilateral, no rhonchi, no rales , no accessory muscle use Ext: no gross muscle atrophy, no edema, no contractures Neuro: no focal neuro deficits Psych: Alert, oriented, appropriate affect Discharge diagnosis: Acute hypoxic respiratory failure COPD exacerbation Sepsis related to community-acquired pneumonia Hypomagnesemia Chronic conditions: CLL, hypertension, dyslipidemia, BPH This complex discharge took 35 minutes to complete. Patient Condition at Discharge: Stable Plan - Discharge Summary Discharge Rx Participant: No New Discharge Prescriptions: New Azithromycin [Zithromax] 500 mg PO DAILY #3 tab Continue Pantoprazole Sodium [Protonix] 40 mg PO DAILY Albuterol Nebulized [Ventolin Nebulized] 2.5 mg INHALATION RT-Q6H PRN PRN Reason: Shortness Of Breath Fluticasone Propion/Salmeterol [Advair 500-50 Diskus] 1 puff INHALATION RT- BID Albuterol Sulfate [Ventolin HFA] 2 puff INHALATION RT-Q4H PRN #1 inhaler PRN Reason: Shortness Of Breath Atorvastatin [Lipitor] 80 mg PO DAILY Doxazosin [Cardura] 4 mg PO DAILY Losartan Potassium 100 mg PO DAILY predniSONE See Taper PO DIRECTED #30 tab Finasteride 1 mg PO DAILY Discharge Medication List Albuterol Nebulized [Ventolin Nebulized] 2.5 mg INHALATION RT-Q6H PRN 01/05/20 [History] Fluticasone Propion/Salmeterol [Advair 500-50 Diskus] 1 puff INHALATION RT-BID 01/05/20 [History] Pantoprazole Sodium [Protonix] 40 mg PO DAILY 01/05/20 [History] Albuterol Sulfate [Ventolin HFA] 2 puff INHALATION RT-Q4H PRN #1 inhaler 01/08/20 [Rx] Atorvastatin [Lipitor] 80 mg PO DAILY 10/18/22 [History] Doxazosin [Cardura] 4 mg PO DAILY 10/18/22 [History] Finasteride 1 mg PO DAILY 10/18/22 [History] Losartan Potassium 100 mg PO DAILY 10/18/22 [History] Azithromycin [Zithromax] 500 mg PO DAILY #3 tab 10/19/22 [Rx] predniSONE See Taper PO DIRECTED #30 tab 10/19/22 [Rx] Follow up Appointment(s)/Referral(s): Jo-Ann Osorio MD [STAFF PHYSICIAN] - 11/03/22 2:45 pm Rupal Yu MD [STAFF PHYSICIAN] - 11/10/22 2:30 pm (liver hemangioma) Khoi Alejo DO [Primary Care Provider] - 10/26/22 8:20 am Patient Instructions/Handouts: Pneumonia (DC) Activity/Diet/Wound Care/Special Instructions: Diet: Regular Follow-up with your PCP within 1-2 days of discharge. Follow-up with pulmonology and gastroenterology within 1 week of discharge. Take all medications as advised. Come back to the ED for worsening shortness of breath, dizziness, chest pain or palpitations. Discharge Disposition: HOME SELF-CARE
== END 2022-10-19 16:00 | disposition home or self-care (01) | DRG 871 ==
LOC: EC 00:36 → 4SSUR 03:29
PROVIDERS: ADMIT Internal Medicine; ATTEND Internal Medicine
PROC: 3E0F7SF Introduction of Other Gas into Respiratory Tract, Via Natural or Artificial Opening (ICD-10-PCS; principal; 2022-10-18)
DX: A41.9 Sepsis, unspecified organism (principal); J69.0 Pneumonitis due to inhalation of food and vomit; J96.01 Acute respiratory failure with hypoxia; J44.1 Chronic obstructive pulmonary disease with (acute) exacerbation; J44.0 Chronic obstructive pulmonary disease with (acute) lower respiratory infection; C91.10 Chronic lymphocytic leukemia of B-cell type not having achieved remission; E83.42 Hypomagnesemia; N40.0 Benign prostatic hyperplasia without lower urinary tract symptoms; F41.9 Anxiety disorder, unspecified; I10 Essential (primary) hypertension; E78.5 Hyperlipidemia, unspecified; R59.9 Enlarged lymph nodes, unspecified; K21.9 Gastro-esophageal reflux disease without esophagitis; Z79.51 Long term (current) use of inhaled steroids; Z79.899 Other long term (current) drug therapy; Z87.01 Personal history of pneumonia (recurrent); Z82.49 Family history of ischemic heart disease and other diseases of the circulatory system; Z88.5 Allergy status to narcotic agent; Z88.0 Allergy status to penicillin; Z87.19 Personal history of other diseases of the digestive system; Z87.891 Personal history of nicotine dependence
CPT/HCPCS: 36415; 71046; 71275; 80053; 83735; 83880; 84145; 84484; 85025; 87040; 87449; 93005; 94640; 96365; 96366; 96375; 99285

== ENCOUNTER 2022-10-31 23:38 | Emergency (ER) | payer MEDICARE ==
[2022-10-31] MEDS ORDERED: MAGNESIUM SULFATE-D5W PMX 1 GM in DEXTROSE/WATER 1 100ML.BAG IVPB STA (23:48)
[2022-10-31] MEDS ORDERED: IPRATROPIUM-ALBUTEROL 3 ML NEB INHALATION STA (23:48)
[2022-10-31] MEDS ORDERED: SODIUM CHLORIDE 0.9% 500 ML 500 ML IV STA (23:48)
[2022-10-31] MEDS ORDERED: methylPREDNISolone SOD SUCCI 125 MG/2 ML VIAL IV STA (23:48)
[2022-11-01 00:48] LABS: ALT 24 U/L (4-49); AST 25 U/L (17-59); African American GFR (CKD) >90 (>60 ml/min/1.73 sqM); Albumin 3.6 g/dL (3.5-5.0); Alkaline Phosphatase 47 U/L (38-126); Anion Gap 5 mmol/L; Blood Urea Nitrogen 23 mg/dL (9-20); Calcium 8.6 mg/dL (8.4-10.2); Carbon Dioxide 32 mmol/L (22-30); Chloride 102 mmol/L (98-107); Glucose 111 mg/dL (74-99); Magnesium 1.5 mg/dL (1.6-2.3); Non-African American GFR(CKD) >90 (>60 ml/min/1.73 sqM); Sodium 139 mmol/L (137-145); Total Bilirubin 0.7 mg/dL (0.2-1.3); Total Protein 6.1 g/dL (6.3-8.2)
[2022-11-01 00:58] LABS: HCT 41.2 % (39.0-53.0); MCH 31.1 pg (25.0-35.0); MCHC 33.8 g/dL (31.0-37.0); MCV 91.9 fL (80.0-100.0); Mean Platelet Volume 7.2; Platelet Count 218 k/uL (150-450); RBC 4.49 m/uL (4.30-5.90); RDW 13.8 % (11.5-15.5); WBC 21.5 k/uL (3.8-10.6)
[2022-11-01] MEDS ORDERED: IPRATROPIUM-ALBUTEROL 3 ML NEB INHALATION STA (01:14)
[2022-11-01 01:37] LABS: Lymphocytes # (M) 12.26 k/uL (1.0-4.8); Monocytes # (M) 0.65 k/uL (0-1.0); Neutrophils % (M) 40 %; Nucleated Red Blood Cells 0 /100 WBC (0-0); Total Cells Counted 100
[2022-11-01 01:40] LABS: Tear Drop Cells Present
--- NOTE | 2022-11-01 01:50 | XR ---
EXAM: XR Chest, 2 Views CLINICAL HISTORY: ITS.REASON XR Reason: difficulty breathing TECHNIQUE: Frontal and lateral views of the chest. COMPARISON: 10/18/2022 FINDINGS: Lungs: Heterogeneous opacities at the bases have improved particularly at the left base. Pleural space: No pleural effusion. No pneumothorax. Heart: Unremarkable. No cardiomegaly. Bones/joints: Unremarkable. No fracture or malalignment. IMPRESSION: Heterogeneous opacities at the bases have improved particularly at the left base.
[2022-11-01] MEDS ORDERED: DOXYCYCLINE 100 MG CAP PO STA (02:04)
[2022-11-01 02:07] VITALS: BP 152/68; PULSE 67; RESP 20; TEMP 98.7
--- NOTE | 2022-11-01 02:07 | ED ---
General Adult HPI - General Chief complaint: Shortness of Breath Stated complaint: Difficulty Breathing Time Seen by Provider: 10/31/22 23:48 Source: patient, RN notes reviewed, old records reviewed Mode of arrival: EMS Limitations: no limitations - History of Present Illness Initial comments: Patient is a 67-year-old male with past medical history remarkable for leukemia, COPD, hypertension who presents emergency Department short of breath. States it has progressively been worsening over the last few days. Home updrafts and inhalers have not been helping. States he typically has this happen around this time of year every year. Unknown if the weather is playing a role. Believes it may be his COPD. Received an updraft in the EMS rig and feels improved. He endorses increased coughing sputum. Denies fevers. Denies sick contacts. Denies nausea or vomiting. Denies chest pain. Is not on oxygen at home. Presents for further evaluation at this time. Follows up with Dr. Dumont of pulmonology in the office, with an appointment on next Wednesday. - Related Data Home Medications Medication Instructions Recorded Confirmed Albuterol Nebulized [Ventolin 2.5 mg INHALATION RT-Q6H PRN 01/05/20 10/18/22 Nebulized] Fluticasone Propion/Salmeterol 1 puff INHALATION RT-BID 01/05/20 10/18/22 [Advair 500-50 Diskus] Pantoprazole Sodium [Protonix] 40 mg PO DAILY 01/05/20 10/18/22 Atorvastatin [Lipitor] 80 mg PO DAILY 10/18/22 10/18/22 Doxazosin [Cardura] 4 mg PO DAILY 10/18/22 10/18/22 Finasteride 1 mg PO DAILY 10/18/22 10/18/22 Losartan Potassium 100 mg PO DAILY 10/18/22 10/18/22 Previous Rx's Medication Instructions Recorded Albuterol Sulfate [Ventolin HFA] 2 puff INHALATION RT-Q4H PRN #1 01/08/20 inhaler Azithromycin [Zithromax] 500 mg PO DAILY #3 tab 10/19/22 predniSONE See Taper PO DIRECTED #30 tab 10/19/22 Doxycycline Hyclate 100 mg PO Q12H 7 Days #14 tab 11/01/22 predniSONE [Deltasone] 40 mg PO DAILY 5 Days #10 tab 11/01/22 Allergies Allergy/AdvReac Type Severity Reaction Status Date / Time naproxen Allergy Itching Verified 10/31/22 23:49 Penicillins Allergy Unknown Verified 10/31/22 23:49 Childhood Review of Systems ROS Statement: Those systems with pertinent positive or pertinent negative responses have been documented in the HPI. Review of Systems: CONST: Denies fever EYES: Denies blurry vision ENT: Denies nasal congestion C/V: Denies Chest pain RESP: Endorses shortness of breath GI: Denies abdominal pain : Denies dysuria SKIN: Denies rash. MSK: Denies joint pain. NEURO: Denies headache ROS Other: All systems not noted in ROS Statement are negative. Past Medical History Past Medical History: Cancer, COPD, GERD/Reflux, Hyperlipidemia, Hypertension, Musculoskeletal Disorder, Pneumonia Additional Past Medical History / Comment(s): Bronchitis, exacerbation of COPD w/pneumonia in fall, occasional lower back pain, dx. w/CLL in fall 2019- no current tx.-sees Dr. Ann, injury to right ring finger by a log splitter 01-14-21-drsg. w/gauze History of Any Multi-Drug Resistant Organisms: None Reported Past Surgical History: Unable to Obtain Additional Past Surgical History / Comment(s): colonoscopy w/polypectomy Past Anesthesia/Blood Transfusion Reactions: No Reported Reaction Past Psychological History: Anxiety Smoking Status: Former smoker Past Alcohol Use History: None Reported Past Drug Use History: None Reported - Past Family History Father Family Medical History: Coronary Artery Disease (CAD) Additional Family Medical History / Comment(s): Father at the age of 74 yrs. Mother Family Medical History: Coronary Artery Disease (CAD) Additional Family Medical History / Comment(s): Mother had CABG. She in her 70s. General Exam - General Exam Comments Initial Comments: General: Appears in mild respiratory distress. HEAD: Normal with no signs of head trauma. EYES: PERRLA, EOMI, conjunctiva normal, no discharge. ENT: Hearing grossly intact, normal oropharynx. RESPIRATORY: Tight breath sounds bilaterally. End expiratory wheezing. Mild increased work of breathing. No hypoxia at rest. C/V: Tachycardic with a regular rhythm.. S1 and S2 auscultated, no edema, peripheral pulses 2+ and intact throughout ABD: Abd is soft, nontender, nondistended EXT: Normal range of motion, no obvious deformity SKIN: No rashes or lesions observed on exposed skin. NEURO: Alert and oriented 4. Limitations: no limitations Course Vital Signs 10/31/22 11/01/22 11/01/22 23:40 00:11 00:19 Temperature 97.9 F Pulse Rate 109 H 101 H 105 H Respiratory 22 Rate Blood Pressure 165/84 O2 Sat by Pulse 98 Oximetry 11/01/22 11/01/22 11/01/22 00:30 01:26 02:05 Temperature 98.7 F Pulse Rate 99 89 67 Respiratory 18 20 Rate Blood Pressure 148/90 152/68 O2 Sat by Pulse 98 91 L Oximetry Medical Decision Making - Medical Decision Making Was pt. sent in by a medical professional or institution (Dr. PA, HYDROSTATIC TUBING TESTER, urgent care, hospital, or assisted...) When possible be specific @ -No Did you speak to anyone other than the patient for history (EMS, parent, family, police, friend...)? What history was obtained from this source @ -No Did you review nursing and triage notes (agree or disagree)? Why? @ -I reviewed and agree with nursing and triage notes Were old charts reviewed (outside hosp., previous admission, EMS record, old EKG, old radiological studies, urgent care reports/EKG's, assisted records)? Report findings @ -Old charts reviewed including from October 2022 When he was diagnosed with multifocal pneumonia. Differential Diagnosis (chest pain, altered mental status, abdominal pain women, abdominal pain men, vaginal bleeding, weakness, fever, dyspnea, syncope, headache, dizziness, GI bleed, back pain, seizure, CVA, palpatations, mental health, musculoskeletal)? @ -Differential Dyspnea: Coronary syndrome, arrhythmia, tamponade, asthma, COPD, pulmonary embolism, pneumonia, pneumothorax, pulmonary effusion, anaphylaxis, diabetic ketoacidosis, flailed chest, pulmonary contusion, diaphragmatic rupture, anemia, neuromuscular, this is not meant to be an all-inclusive list. EKG interpreted by me (3pts min.). @ -As above X-rays interpreted by me (1pt min.). @ -Chest x-ray shows improvement in the infiltrate seen on prior x-rays. No obvious acute process. CT interpreted by me (1pt min.). @ -None done U/S interpreted by me (1pt. min.). @ -None done What testing was considered but not performed or refused? (CT, X-rays, U/S, labs)? Why? @ -None What meds were considered but not given or refused? Why? @ -None Did you discuss the management of the patient with other professionals (professionals i.e. , PA, HYDROSTATIC TUBING TESTER, lab, RT, psych nurse, social work job titles, sweet potato disintegrator, teacher, senior major gifts officer, geriatric case manager)? Give summary @ -No Was smoking cessation discussed for >3mins.? @ -No Was critical care preformed (if so, how long)? @ -No Were there social determinants of health that impacted care today? How? (Homelessness, low income, unemployed, alcoholism, drug addiction, transportation, low edu. Level, literacy, decrease access to med. care, group home, rehab)? @ -No Was there de-escalation of care discussed even if they declined (Discuss DNR or withdrawal of care, Hospice)? DNR status @ -No What co-morbidities impacted this encounter? (DM, HTN, Smoking, COPD, CAD, Cancer, CVA, ARF, Chemo, Hep., AIDS, mental health diagnosis, sleep apnea, morbid obesity)? @ -COPD Was patient admitted / discharged? Hospital course, mention meds given and route, prescriptions, significant lab abnormalities, going to OR and other pertinent info. @ -Based on the patient's presentation and physical exam, presents in respiratory distress. Likely a COPD exacerbation but cannot rule out infectious cause. Screening EKG as well as basic labs with EKG will be obtained. Patient was symptomatically treated with IV fluid bolus, IV steroids and magnesium, as well as breathing treatment. He was in agreement with this plan. At rest, patient's vital signs within acceptable limits except for mild increased work of breathing at this time. Chest x-ray shows no obvious acute process and shows improvement in patient's infiltrates from previous x-ray. EKG showed no signs of acute ischemia. Labs show his chronic leukocytosis of 21 with a history of leukemia. This is within his baseline that is being monitored outpatient. Not on chemo or radiation. Remainder the patient's labs are within acceptable limits. Mild hypomagnesemia but he is receiving replacement. Vital signs negative. Carbon dioxide level slightly elevated. On reevaluation, patient is still wheezing, and I did offer him admission but he would like to try to go home. We will administer an additional breathing treatment. Following breathing treatment, patient's wheezing is just a clean improved. Ambulatory pulse ox shows oxygen levels ranging from 91-93% on room air, which likely is chronic for him with his history of COPD. I once again offered the patient admission for COPD exacerbation but he declines at this time and states he will return if he gets worse again. He'll be discharged home on prednisone, steroids. He has plenty of inhalers and breathing treatments and states he does not require more restrictions. He does follow up with his restaurant line server next Wednesday which is in 3 days. He'll be discharged home at this time. He was in agreement this plan. I will provide the patient with a prescription for doxycycline, prednisone. I instructed the patient to follow up with their PCP in the next 1-3 days. I explained that the patient should return to the emergency department if they experience any worsening symptoms. Strict return precautions were discussed with the patient. The patient expressed understanding of these instructions. I answered all questions that the patient had. The patient was discharged home in good condition with their prescriptions and follow up information. Undiagnosed new problem with uncertain prognosis? @ -No Drug Therapy requiring intensive monitoring for toxicity (Heparin, Nitro, Insulin, Cardizem)? @ -No Were any procedures done? @ -No Diagnosis/symptom? @ -COPD exacerbation, bronchitis Acute, or Chronic, or Acute on Chronic? @ -Acute on chronic Uncomplicated (without systemic symptoms) or Complicated (systemic symptoms)? @ -Complicated Side effects of treatment? @ -No Exacerbation, Progression, or Severe Exacerbation? @ -No Poses a threat to life or bodily function? How? (Chest pain, [place], [place], pneumonia, PE, COPD, DKA, ARF, appy, cholecystitis, CVA, Diverticulitis, Homicidal, Suicidal, threat to staff... and all critical care pts) @ -No - Lab Data Result diagrams: 11/01/22 00:11 11/01/22 00:11 Lab Results 11/01/22 11/01/22 11/01/22 Range/Units 00:11 00:11 00:11 WBC 21.5 H (3.8-10.6) k/uL RBC 4.49 (4.30-5.90) m/uL Hgb 14.0 (13.0-17.5) gm/dL Hct 41.2 (39.0-53.0) % MCV 91.9 (80.0-100.0) fL MCH 31.1 (25.0-35.0) pg MCHC 33.8 (31.0-37.0) g/dL RDW 13.8 (11.5-15.5) % Plt Count 218 (150-450) k/uL MPV 7.2 Neutrophils % (Manual) 40 % Lymphocytes % (Manual) 57 % Monocytes % (Manual) 3 % Neutrophils # (Manual) 8.60 H (1.3-7.7) k/uL Lymphocytes # (Manual) 12.26 H (1.0-4.8) k/uL Monocytes # (Manual) 0.65 (0-1.0) k/uL Nucleated RBCs 0 (0-0) /100 WBC Manual Slide Review Performed Tear Drop Cells Present Sodium 139 (137-145) mmol/L Potassium 4.0 (3.5-5.1) mmol/L Chloride 102 (98-107) mmol/L Carbon Dioxide 32 H (22-30) mmol/L Anion Gap 5 mmol/L BUN 23 H (9-20) mg/dL Creatinine 0.82 (0.66-1.25) mg/dL Est GFR (CKD-EPI)AfAm >90 (>60 ml/min/1.73 sqM) Est GFR (CKD-EPI)NonAf >90 (>60 ml/min/1.73 sqM) Glucose 111 H (74-99) mg/dL Calcium 8.6 (8.4-10.2) mg/dL Magnesium 1.5 L (1.6-2.3) mg/dL Total Bilirubin 0.7 (0.2-1.3) mg/dL AST 25 (17-59) U/L ALT 24 (4-49) U/L Alkaline Phosphatase 47 (38-126) U/L Total Protein 6.1 L (6.3-8.2) g/dL Albumin 3.6 (3.5-5.0) g/dL Influenza Type A (PCR) Not Detected (Not Detectd) Influenza Type B (PCR) Not Detected (Not Detectd) RSV (PCR) Not Detected (Not Detectd) SARS-CoV-2 (PCR) Not Detected (Not Detectd) - EKG Data -: EKG Interpreted by Me EKG Comments: 12-lead Electrocardiogram Interpretation Note EKG was reviewed and interpreted by myself. 12-lead ECG performed at 2349 is interpreted by me as revealing sinus tachycardia at a rate of 106 beats per minute. [place] is normal. HI interval is 126 ms, QRS duration is 83 ms, QTc is 389 ms.. There were no ST or T wave abnormalities to suggest myocardial ischemi a or injury. R wave progression across the precordium was satisfactory. By my interpretation this EKG is non-diagnostic for acute ischemia. When compared with EKG from 10/18/2022, no significant change. Disposition Clinical Impression: COPD (chronic obstructive pulmonary disease), Bronchitis Disposition: HOME SELF-CARE Condition: Fair Instructions (If sedation given, give patient instructions): Acute Bronchitis (ED), COPD (Chronic Obstructive Pulmonary Disease) (ED) Prescriptions: predniSONE [Deltasone] 40 mg PO DAILY 5 Days #10 tab Doxycycline Hyclate 100 mg PO Q12H 7 Days #14 tab Is patient prescribed a controlled substance at d/c from ED?: No Referrals: Khoi Alejo DO [Primary Care Provider] - 1-2 days Time of Disposition: 02:01
== END 2022-11-01 02:12 | disposition home or self-care (01) ==
LOC: EC 23:38
DX: J44.9 Chronic obstructive pulmonary disease, unspecified (principal); I10 Essential (primary) hypertension; K21.9 Gastro-esophageal reflux disease without esophagitis; F41.9 Anxiety disorder, unspecified; E78.5 Hyperlipidemia, unspecified; Z79.51 Long term (current) use of inhaled steroids; Z79.899 Other long term (current) drug therapy; Z88.0 Allergy status to penicillin; Z88.6 Allergy status to analgesic agent; Z87.891 Personal history of nicotine dependence; Z20.822 Contact with and (suspected) exposure to COVID-19
CPT/HCPCS: 36415; 94640 ×2; 93005; 80053; 83735; 85025; 87636; 71046; 99285; 96365; 96375; J2930; J3475

== ENCOUNTER 2022-11-08 08:51 | Inpatient (IN) | payer MEDICARE ==
[2022-11-08] MEDS ORDERED: IPRATROPIUM 0.5 MG/2.5 ML NEBU INHALATION STA (09:07)
[2022-11-08] MEDS ORDERED: ALBUTEROL NEBULIZED 2.5 MG/3 ML INHALATION STA (09:07)
--- NOTE | 2022-11-08 09:11 | ED ---
General Adult HPI - General Chief complaint: Shortness of Breath Stated complaint: SOB Time Seen by Provider: 11/08/22 08:55 Source: patient, RN notes reviewed, old records reviewed Mode of arrival: ambulatory Limitations: no limitations - History of Present Illness Initial comments: 67-year-old male history of COPD and recent diagnosis of pneumonia presenting for evaluation of cough and dyspnea. Patient states he was admitted for COPD and pneumonia, treated and subsequently discharged. He'll return to the emergency department several days ago but continues to have significant cough and dyspnea. He presents today with low-grade fever, productive cough. He is not currently on home oxygen. He also reports bilateral lower extremity edema which is occurred over the past several days. - Related Data Home Medications Medication Instructions Recorded Confirmed Albuterol Nebulized [Ventolin 2.5 mg INHALATION RT-Q6H PRN 01/05/20 10/18/22 Nebulized] Fluticasone Propion/Salmeterol 1 puff INHALATION RT-BID 01/05/20 10/18/22 [Advair 500-50 Diskus] Pantoprazole Sodium [Protonix] 40 mg PO DAILY 01/05/20 10/18/22 Atorvastatin [Lipitor] 80 mg PO DAILY 10/18/22 10/18/22 Doxazosin [Cardura] 4 mg PO DAILY 10/18/22 10/18/22 Finasteride 1 mg PO DAILY 10/18/22 10/18/22 Losartan Potassium 100 mg PO DAILY 10/18/22 10/18/22 Previous Rx's Medication Instructions Recorded Albuterol Sulfate [Ventolin HFA] 2 puff INHALATION RT-Q4H PRN #1 01/08/20 inhaler Azithromycin [Zithromax] 500 mg PO DAILY #3 tab 10/19/22 predniSONE See Taper PO DIRECTED #30 tab 10/19/22 Doxycycline Hyclate 100 mg PO Q12H 7 Days #14 tab 11/01/22 predniSONE [Deltasone] 40 mg PO DAILY 5 Days #10 tab 11/01/22 Allergies Allergy/AdvReac Type Severity Reaction Status Date / Time naproxen Allergy Itching Verified 11/08/22 08:55 Penicillins Allergy Unknown Verified 11/08/22 08:55 Childhood Review of Systems ROS Statement: Those systems with pertinent positive or pertinent negative responses have been documented in the HPI. ROS Other: All systems not noted in ROS Statement are negative. Past Medical History Past Medical History: Cancer, COPD, GERD/Reflux, Hyperlipidemia, Hypertension, Musculoskeletal Disorder, Pneumonia Additional Past Medical History / Comment(s): Bronchitis, exacerbation of COPD w/pneumonia in fall of 2019, occasional lower back pain, dx. w/CLL in fall 2019- no current tx.-sees Dr. Ann, injury to right ring finger by a log splitter 01-14-21-drsg. w/gauze History of Any Multi-Drug Resistant Organisms: None Reported Past Surgical History: Unable to Obtain Additional Past Surgical History / Comment(s): colonoscopy w/polypectomy Past Anesthesia/Blood Transfusion Reactions: No Reported Reaction Past Psychological History: Anxiety Smoking Status: Former smoker Past Alcohol Use History: None Reported Past Drug Use History: None Reported - Past Family History Father Family Medical History: Coronary Artery Disease (CAD) Additional Family Medical History / Comment(s): Father at the age of 74 yrs. Mother Family Medical History: Coronary Artery Disease (CAD) Additional Family Medical History / Comment(s): Mother had CABG. She in her 70s. General Exam Limitations: no limitations General appearance: alert, in no apparent distress Head exam: Present: atraumatic, normocephalic Eye exam: Present: normal appearance, PERRL ENT exam: Present: normal exam Neck exam: Present: normal inspection. Absent: tenderness, meningismus Respiratory exam: Present: respiratory distress, wheezes, rhonchi Cardiovascular Exam: Present: regular rate, normal rhythm GI/Abdominal exam: Present: soft. Absent: distended, tenderness, guarding Extremities exam: Present: pedal edema Neurological exam: Present: alert, oriented X3, CN II-XII intact. Absent: motor sensory deficit Psychiatric exam: Present: normal affect, normal mood Skin exam: Present: warm, dry, intact Course Vital Signs 11/08/22 11/08/22 11/08/22 08:53 09:50 10:10 Temperature 98.6 F Pulse Rate 110 H 96 99 Respiratory 22 Rate Blood Pressure 150/80 O2 Sat by Pulse 93 L Oximetry Medical Decision Making - Medical Decision Making Was pt. sent in by a medical professional or institution (, PA, SUPERVISOR ANODIZING, urgent care, hospital, or halfway...) When possible be specific @ -[No] Did you speak to anyone other than the patient for history (EMS, parent, family, police, friend...)? What history was obtained from this source @ -[No] Did you review nursing and triage notes (agree or disagree)? Why? @ -[I reviewed and agree with nursing and triage notes] Were old charts reviewed (outside hosp., previous admission, EMS record, old EKG, old radiological studies, urgent care reports/EKG's, halfway records)? Report findings @ -[No old charts were reviewed] Differential Diagnosis (chest pain, altered mental status, abdominal pain women, abdominal pain men, vaginal bleeding, weakness, fever, dyspnea, syncope, headache, dizziness, GI bleed, back pain, seizure, CVA, palpatations, mental health, musculoskeletal)? Differential Dyspnea: Coronary syndrome, arrhythmia, tamponade, asthma, COPD, pulmonary embolism, pneumonia, pneumothorax, pulmonary effusion, anaphylaxis, diabetic ketoacidosis, flailed chest, pulmonary contusion, diaphragmatic rupture, anemia, neuromuscular, this is not meant to be an all-inclusive list. EKG interpreted by me (3pts min.). @Sinus rhythm rate of 98, TX interval 1:30, QRS duration 86, QTC 392, no ST segment elevation. X-rays interpreted by me (1pt min.). @Improved bilateral infiltrate CT interpreted by me (1pt min.). @ -[None done] U/S interpreted by me (1pt. min.). @ -[None done] What testing was considered but not performed or refused? (CT, X-rays, U/S, labs)? Why? @ -[None] What meds were considered but not given or refused? Why? @ -[None] Did you discuss the management of the patient with other professionals (kd reyes i.e. , PA, SUPERVISOR ANODIZING, lab, RT, psych nurse, social security assessor, divorce lawyer, teacher, adult parole officer, medical case manager)? Give summary @ -[No] Was smoking cessation discussed for >3mins.? @ -[No] Was critical care preformed (if so, how long)? @ -[No] Were there social determinants of health that impacted care today? How? (Homelessness, low income, unemployed, alcoholism, drug addiction, transp ortation, low edu. Level, literacy, decrease access to med. care, snf, rehab)? @ -[No] Was there de-escalation of care discussed even if they declined (Discuss DNR or withdrawal of care, Hospice)? DNR status @ -[No] What co-morbidities impacted this encounter? (DM, HTN, Smoking, COPD, CAD, Cancer, CVA, ARF, Chemo, Hep., AIDS, mental health diagnosis, sleep apnea, morbid obesity)? @ -COPD Was patient admitted / discharged? Hospital course, mention meds given and route, prescriptions, significant lab abnormalities, going to OR and other pertinent info. @ -[67-year-old male presenting for reevaluation of cough and dyspnea. Patient has bilateral wheezing in bilateral rhonchi. Moderate respiratory distress. Chest x-ray showing subtle improved bilateral infiltrate. Patient has elevated white blood cell count but does have history of chronic leukemia, white blood cell count is 31,000. His troponin and BNP are negative. He will be admitted for reevaluation of COPD with pneumonia. Pulmonary consult. Undiagnosed new problem with uncertain prognosis? @ -[No] Drug Therapy requiring intensive monitoring for toxicity (Heparin, Nitro, Insulin, Cardizem)? @ -[No] Were any procedures done? @ -[No] Diagnosis/symptom? @ -COPD, pneumonia Acute, or Chronic, or Acute on Chronic? @ -Acute Uncomplicated (without systemic symptoms) or Complicated (systemic symptoms)? @ -[default] Side effects of treatment? @ -[No] Exacerbation, Progression, or Severe Exacerbation? @ -[Yes severe Poses a threat to life or bodily function? How? (Chest pain, [place], [place], pneumonia, PE, COPD, DKA, ARF, appy, cholecystitis, CVA, Diverticulitis, Homicidal, Iman cidal, threat to staff... and all critical care pts) @ -[Yes, respiratory failure, COPD - Lab Data Result diagrams: 11/08/22 09:19 11/08/22 09:19 Lab Results 11/08/22 11/08/22 11/08/22 Range/Units 09:19 09:19 09:19 WBC 31.6 H (3.8-10.6) k/uL RBC 4.45 (4.30-5.90) m/uL Hgb 13.6 (13.0-17.5) gm/dL Hct 40.8 (39.0-53.0) % MCV 91.6 (80.0-100.0) fL MCH 30.5 (25.0-35.0) pg MCHC 33.3 (31.0-37.0) g/dL RDW 13.3 (11.5-15.5) % Plt Count 205 (150-450) k/uL MPV 7.1 PT 10.6 (9.0-12.0) sec INR 1.0 (<1.2) APTT 22.8 (22.0-30.0) sec Sodium 134 L (137-145) mmol/L Potassium 3.4 L (3.5-5.1) mmol/L Chloride 97 L (98-107) mmol/L Carbon Dioxide 34 H (22-30) mmol/L Anion Gap 3 mmol/L BUN 19 (9-20) mg/dL Creatinine 0.76 (0.66-1.25) mg/dL Est GFR (CKD-EPI)AfAm >90 (>60 ml/min/1.73 sqM) Est GFR (CKD-EPI)NonAf >90 (>60 ml/min/1.73 sqM) Glucose 99 (74-99) mg/dL Plasma Lactic Acid Jeramy (0.7-2.0) mmol/L Calcium 8.1 L (8.4-10.2) mg/dL Magnesium 1.5 L (1.6-2.3) mg/dL Total Bilirubin 1.2 (0.2-1.3) mg/dL AST 17 (17-59) U/L ALT 19 (4-49) U/L Alkaline Phosphatase 72 (38-126) U/L Troponin I (0.000-0.034) ng/mL NT-Pro-B Natriuret Pep pg/mL Total Protein 5.7 L (6.3-8.2) g/dL Albumin 3.3 L (3.5-5.0) g/dL 11/08/22 11/08/22 11/08/22 Range/Units 09:19 09:19 09:19 WBC (3.8-10.6) k/uL RBC (4.30-5.90) m/uL Hgb (13.0-17.5) gm/dL Hct (39.0-53.0) % MCV (80.0-100.0) fL MCH (25.0-35.0) pg MCHC (31.0-37.0) g/dL RDW (11.5-15.5) % Plt Count (150-450) k/uL MPV PT (9.0-12.0) sec INR (<1.2) APTT (22.0-30.0) sec Sodium (137-145) mmol/L Potassium (3.5-5.1) mmol/L Chloride (98-107) mmol/L Carbon Dioxide (22-30) mmol/L Anion Gap mmol/L BUN (9-20) mg/dL Creatinine (0.66-1.25) mg/dL Est GFR (CKD-EPI)AfAm (>60 ml/min/1.73 sqM) Est GFR (CKD-EPI)NonAf (>60 ml/min/1.73 sqM) Glucose (74-99) mg/dL Plasma Lactic Acid Jeramy 0.9 (0.7-2.0) mmol/L Calcium (8.4-10.2) mg/dL Magnesium (1.6-2.3) mg/dL Total Bilirubin (0.2-1.3) mg/dL AST (17-59) U/L ALT (4-49) U/L Alkaline Phosphatase (38-126) U/L Troponin I 0.013 (0.000-0.034) ng/mL NT-Pro-B Natriuret Pep 753 pg/mL Total Protein (6.3-8.2) g/dL Albumin (3.5-5.0) g/dL Disposition Clinical Impression: COPD (chronic obstructive pulmonary disease), Acute exacerbation of chronic obstructive airways disease, Pneumonia, CLL (chronic lymphocytic leukemia) Disposition: ADMITTED IP TO THIS HOSP Condition: Stable Is patient prescribed a controlled substance at d/c from ED?: No Referrals: Khoi Alejo DO [Primary Care Provider] - 1-2 days Time of Disposition: 10:44
--- NOTE | 2022-11-08 09:25 | XR ---
EXAMINATION TYPE: XR chest 2V DATE OF EXAM: 11/08/2022 COMPARISON: 11/01/2022 HISTORY: Shortness of breath TECHNIQUE: Frontal and lateral views of the chest are obtained. FINDINGS: Scattered senescent parenchymal changes noted. Hyperinflation compatible with COPD. No evidence for infiltrate. No evidence for atelectasis. Heart size is stable. Mediastinal structures are stable and grossly unremarkable. No evidence for hilar prominence. Degenerative changes dorsal spine. IMPRESSION: 1. No evidence for acute pulmonary disease.
[2022-11-08 09:35] LABS: HCT 40.8 % (39.0-53.0); HGB 13.6 gm/dL (13.0-17.5); MCH 30.5 pg (25.0-35.0); MCHC 33.3 g/dL (31.0-37.0); MCV 91.6 fL (80.0-100.0); Mean Platelet Volume 7.1; Platelet Count 205 k/uL (150-450); RBC 4.45 m/uL (4.30-5.90); RDW 13.3 % (11.5-15.5); WBC 31.6 k/uL (3.8-10.6)
[2022-11-08 09:44] LABS: Partial Thromboplastin Time 22.8 sec (22.0-30.0); Prothrombin Time 10.6 sec (9.0-12.0)
[2022-11-08 09:45] LABS: ALT 19 U/L (4-49); AST 17 U/L (17-59); African American GFR (CKD) >90 (>60 ml/min/1.73 sqM); Albumin 3.3 g/dL (3.5-5.0); Alkaline Phosphatase 72 U/L (38-126); Anion Gap 3 mmol/L; Blood Urea Nitrogen 19 mg/dL (9-20); Calcium 8.1 mg/dL (8.4-10.2); Carbon Dioxide 34 mmol/L (22-30); Chloride 97 mmol/L (98-107); Glucose 99 mg/dL (74-99); Magnesium 1.5 mg/dL (1.6-2.3); Non-African American GFR(CKD) >90 (>60 ml/min/1.73 sqM); Potassium 3.4 mmol/L (3.5-5.1); Sodium 134 mmol/L (137-145); Total Bilirubin 1.2 mg/dL (0.2-1.3); Total Protein 5.7 g/dL (6.3-8.2)
[2022-11-08] MEDS ORDERED: AZITHROMYCIN 500 MG in SODIUM CHLORIDE 0.9% 250 ML IVPB STA (10:10)
[2022-11-08] MEDS ORDERED: methylPREDNISolone SOD SUCCI 125 MG/2 ML VIAL IV STA (10:10)
[2022-11-08] MEDS ORDERED: IPRATROPIUM-ALBUTEROL 3 ML NEB INHALATION PRN (10:40)
[2022-11-08] MEDS ORDERED: NALOXONE 0.4 MG/ML 1 ML VIAL IVP PRN (10:40)
[2022-11-08] MEDS: IPRATROPIUM-ALBUTEROL 3 ML NEB INHALATION SCH ×3 (11:20→20:05)
[2022-11-08 11:49] LABS: Lymphocytes # (M) 12.32 k/uL (1.0-4.8); Monocytes # (M) 0.95 k/uL (0-1.0); Neutrophils # (M) 18.33 k/uL (1.3-7.7); Neutrophils % (M) 58 %; Nucleated Red Blood Cells 0 /100 WBC (0-0); Reactive Lymphocytes Present; Total Cells Counted 100
--- NOTE | 2022-11-08 12:07 | P.HPIM ---
History of Present Illness H&P Date: 11/08/22 Chief Complaint: dyspnea 67-year-old man with medical history of CLL, COPD, hypertension, hyperlipidemia, BPH presented to the emergency room with dyspnea. Patient was recently discharged in October of this year with COPD exacerbation as well as community acquired pneumonia and was prescribed doxycycline, steroids, nebulizers. However, he started to feel increasingly short of breath with mucus production that he could not get up. He also reported having fevers and chills. He was unable to go to the bathroom without significant shortness of breath, therefore presented to the hospital for further evaluation. He denies chest pain, palpitations, sick, presyncope, abdominal pain, constipation, diarrhea, dysuria, dyschezia, numbness/weakness of extremity is. In the emergency room, patient was afebrile, 150/80, heart rate 110, 93% on room air. CBC showed leukocytosis of 31.6. Basic metabolic panel showed sodium of 134, potassium 3.4, chloride 97, carbon dioxide of 34. Magnesium was 1.5. Liver function test showed low total protein 5.7, albumin 3.3. Troponin is 0.013. BNP was 753. EKG showed normal sinus rhythm with right axis deviation, no evidence of ischemia. Chest x-ray showed hyperinflated lungs with flattening of the diaphragm, increased opacities in the right and the left lung, but appears overall improved from prior done in October. Case was discussed with the emergency room physician and decision was made to admit the patient to the hospital for COPD exacerbation as well as possible pneumonia. All Systems reviewed and pertinent positives and negatives noted in HPI, all other symptoms are negative Gen: in no apparent distress, resting comfortably in bed Eyes: PERRL, no scleral injection or icterus HENT: normocephalic, atraumatic, good hearing acuity, moist mucous membranes Neck: no tracheal deviation, full range of motion Resp: breathing comfortably with no accessory muscle use, no tactile fremitus, poor air exchange, expiratory wheezing CVS: good distal perfusion x 4, bilateral trace pitting edema, no appreciable murmurs, regular rate and rhythm GI: soft, NTTP, ND, no hepatosplenomegaly : no suprapubic tenderness, no CVAT, clements catheter not present MSK: no clubbing, no cyanosis, no noted contractures of extremities Skin: no noted rashes, petechiae; temperature of skin is appropriate Neuro: moving all extremities without signs of weakness, CN II-XII intact Psych: cooperative, euthymic mood, insight and judgment intact Labs and imaging as above Assessment: COPD exacerbation Leukocytosis Hypertension Hyperlipidemia CLL BPH Plan: Vital signs reviewed and noted in the HPI Lab work reviewed and noted in the HPI EKG and CXR are personally interpreted and noted in the HPI Case was discussed with the Emergency Room provider and decision was made to admit the patient for COPD exacerbation DuoNeb's every 6 hours Solu-Medrol 60 mg IV every 6 hours Consultation to pulmonology Start azithromycin 500 mg daily Obtain pro-calcitonin Obtain respiratory viral panel: Influenza A, B, Covid, RSV Obtain Legionella urine antigen Patient is full code Past Medical History Past Medical History: Cancer, COPD, GERD/Reflux, Hyperlipidemia, Hypertension, Musculoskeletal Disorder, Pneumonia Additional Past Medical History / Comment(s): Bronchitis, exacerbation of COPD w/pneumonia in fall of 2019, occasional lower back pain, dx. w/CLL in fall 2019- no current tx.-sees Dr. Ann, injury to right ring finger by a log splitter 01-14-21-drsg. w/gauze History of Any Multi-Drug Resistant Organisms: None Reported Past Surgical History: Unable to Obtain Additional Past Surgical History / Comment(s): colonoscopy w/polypectomy Past Anesthesia/Blood Transfusion Reactions: No Reported Reaction Past Psychological History: Anxiety Smoking Status: Former smoker Past Alcohol Use History: None Reported Past Drug Use History: None Reported - Past Family History Father Family Medical History: Coronary Artery Disease (CAD) Additional Family Medical History / Comment(s): Father at the age of 74 yrs. Mother Family Medical History: Coronary Artery Disease (CAD) Additional Family Medical History / Comment(s): Mother had CABG. She in her 70s. Medications and Allergies Home Medications Medication Instructions Recorded Confirmed Type Albuterol Nebulized [Ventolin 2.5 mg INHALATION RT-Q6H PRN 01/05/20 10/18/22 History Nebulized] Fluticasone Propion/Salmeterol 1 puff INHALATION RT-BID 01/05/20 10/18/22 History [Advair 500-50 Diskus] Pantoprazole Sodium [Protonix] 40 mg PO DAILY 01/05/20 10/18/22 History Albuterol Sulfate [Ventolin HFA] 2 puff INHALATION RT-Q4H PRN #1 01/08/20 10/18/22 Rx inhaler Atorvastatin [Lipitor] 80 mg PO DAILY 10/18/22 10/18/22 History Doxazosin [Cardura] 4 mg PO DAILY 10/18/22 10/18/22 History Finasteride 1 mg PO DAILY 10/18/22 10/18/22 History Losartan Potassium 100 mg PO DAILY 10/18/22 10/18/22 History Azithromycin [Zithromax] 500 mg PO DAILY #3 tab 10/19/22 Rx predniSONE See Taper PO DIRECTED #30 tab 10/19/22 Rx Doxycycline Hyclate 100 mg PO Q12H 7 Days #14 tab 11/01/22 Rx predniSONE [Deltasone] 40 mg PO DAILY 5 Days #10 tab 11/01/22 Rx Allergies Allergy/AdvReac Type Severity Reaction Status Date / Time naproxen Allergy Itching Verified 11/08/22 08:55 Penicillins Allergy Unknown Verified 11/08/22 08:55 Childhood Physical Exam Osteopathic Statement: *. No significant issues noted on an osteopathic structural exam other than those noted in the History and Physical/Consult. Vitals: Vital Signs Temp Pulse Resp BP Pulse Ox 11/08/22 11:29 92 11/08/22 11:22 89 11/08/22 10:10 99 11/08/22 09:50 96 11/08/22 08:53 98.6 F 110 H 22 150/80 93 L Intake and Output 11/07/22 11/08/22 11/08/22 22:59 06:59 14:59 Other: Weight 77.111 kg Results CBC & Chem 7: 11/08/22 09:19 11/08/22 09:19 Labs: Abnormal Lab Results - Last 24 Hours (Table) 11/08/22 11/08/22 Range/Units 09:19 09:19 WBC 31.6 H (3.8-10.6) k/uL Sodium 134 L (137-145) mmol/L Potassium 3.4 L (3.5-5.1) mmol/L Chloride 97 L (98-107) mmol/L Carbon Dioxide 34 H (22-30) mmol/L Calcium 8.1 L (8.4-10.2) mg/dL Magnesium 1.5 L (1.6-2.3) mg/dL Total Protein 5.7 L (6.3-8.2) g/dL Albumin 3.3 L (3.5-5.0) g/dL
--- NOTE | 2022-11-08 13:31 | P.CNPUL ---
History of Present Illness Consult date: 11/08/22 Reason for consult: dyspnea, COPD History of present illness: 67-year-old male patient with known history of COPD was recently hospitalized in October 2021 for shortness of breath and COPD exacerbation. The patient is also known to have chronic lymphocytic leukemia. Patient was treated successfully during his earlier hospitalization and the patient was discharged home on 10/19/2022 and the patient was offered a Zithromax and a course of prednisone burst taper which she completed. He is maintained on Advair discus 500/50 one puff twice a day but the rescue inhaler mastery basis. He came into the emergency department again for worsening shortness of breath. He reported increased mucus production. He also reports having some fever and chills. No change in mental status. No chest pain. No angina or palpitations. White cell count is obviously elevated at 31.6 with lymphocytosis. Electrolytes are normal. Magnesium level is at 1.5. LFTs are normal. Troponin was at 0.013 and a proBNP level was 753. EKG showed normal sinus rhythm without evidence of any ischemia. Chest x-ray showed hyperinflation consistent with COPD. Noted the patient had a CAT scan of the chest that was done during his last admission on 10/18/2022 and it showed some unspecific mediastinal lymphadenopathy largest in the subcarinal area measuring 1.7 cm and another one in the left hilar measuring 8 mm in size in the right hilum measuring 9 mm in size. The ascending aorta was measuring 3.4 cm. There was a heterogeneous large mass in the posterior right liver suspicious for hemangioma. There was no evidence of any pulmonary embolism. Limited areas of pneumonitis in the left anterior lateral and posterior segment was seen. Patient is currently on room air oxygen with a pulse ox of 93%. Review of Systems Constitutional: Reports fatigue, Reports lethargy Eyes: denies as per HPI, denies blurred vision, denies bulging eye, denies decreased vision, denies diplopia, denies discharge, denies dry eye, denies irritation, denies itching, denies pain, denies photophobia, denies loss of peripheral vision, denies loss of vision, denies tunnel vision/blind spots Ears: deny: decreased hearing, ear discharge, earache, tinnitus Ears, nose, mouth and throat: Reports as per HPI Breasts: absent: as per HPI, gynecomastia Cardiovascular: Reports decreased exercise tolerance Respiratory: Reports cough, Reports dyspnea, Reports wheezing Gastrointestinal: Reports as per HPI Genitourinary: Reports as per HPI Musculoskeletal: Reports as per HPI Musculoskeletal: absent: ankle pain, ankle stiffness, ankle swelling, as per HPI, elbow pain, elbow stiffness, elbow swelling, foot pain, foot stiffness, foot swelling, hand pain, hand stiffness, hand swelling, hip pain, hip stiffness, hip swelling, knee pain, knee stiffness, knee swelling, shoulder pain, shoulder stiffness, shoulder swelling, wrist pain, wrist stiffness, wrist swelling Integumentary: Reports as per HPI Neurological: Reports as per HPI Psychiatric: Reports as per HPI Endocrine: Reports as per HPI Hematologic/Lymphatic: Reports as per HPI Allergic/Immunologic: Reports as per HP Past Medical History Past Medical History: Cancer, COPD, GERD/Reflux, Hyperlipidemia, Hypertension, Musculoskeletal Disorder, Pneumonia Additional Past Medical History / Comment(s): Bronchitis, exacerbation of COPD w/pneumonia in fall, occasional lower back pain, dx. w/CLL in fall 2019- no current tx.-sees Dr. Ann, injury to right ring finger by a log splitter -drsg. w/gauze History of Any Multi-Drug Resistant Organisms: None Reported Past Surgical History: Unable to Obtain Additional Past Surgical History / Comment(s): colonoscopy w/polypectomy Past Anesthesia/Blood Transfusion Reactions: No Reported Reaction Past Psychological History: Anxiety Smoking Status: Former smoker Past Alcohol Use History: None Reported Past Drug Use History: None Reported - Past Family History Father Family Medical History: Coronary Artery Disease (CAD) Additional Family Medical History / Comment(s): Father at the age of 74 yrs. Mother Family Medical History: Coronary Artery Disease (CAD) Additional Family Medical History / Comment(s): Mother had CABG. She in her 70s. Medications and Allergies Home Medications Medication Instructions Recorded Confirmed Type Albuterol Nebulized [Ventolin 2.5 mg INHALATION RT-Q6H PRN 01/05/20 10/18/22 History Nebulized] Fluticasone Propion/Salmeterol 1 puff INHALATION RT-BID 01/05/20 10/18/22 History [Advair 500-50 Diskus] Pantoprazole Sodium [Protonix] 40 mg PO DAILY 01/05/20 10/18/22 History Albuterol Sulfate [Ventolin HFA] 2 puff INHALATION RT-Q4H PRN #1 01/08/20 10/18/22 Rx inhaler Atorvastatin [Lipitor] 80 mg PO DAILY 10/18/22 10/18/22 History Doxazosin [Cardura] 4 mg PO DAILY 10/18/22 10/18/22 History Finasteride 1 mg PO DAILY 10/18/22 10/18/22 History Losartan Potassium 100 mg PO DAILY 10/18/22 10/18/22 History Azithromycin [Zithromax] 500 mg PO DAILY #3 tab 10/19/22 Rx predniSONE See Taper PO DIRECTED #30 tab 10/19/22 Rx Doxycycline Hyclate 100 mg PO Q12H 7 Days #14 tab 11/01/22 Rx predniSONE [Deltasone] 40 mg PO DAILY 5 Days #10 tab 11/01/22 Rx Allergies Allergy/AdvReac Type Severity Reaction Status Date / Time naproxen Allergy Itching Verified 11/08/22 08:55 Penicillins Allergy Unknown Verified 11/08/22 08:55 Childhood Physical Exam Vitals: Vital Signs Temp Pulse Resp BP Pulse Ox 11/08/22 11:29 92 11/08/22 11:22 89 11/08/22 10:10 99 11/08/22 09:50 96 11/08/22 08:53 98.6 F 110 H 22 150/80 93 L Intake and Output 11/07/22 11/08/22 11/08/22 22:59 06:59 14:59 Other: Weight 77.111 kg GENERAL EXAM: Alert, active, very pleasant 64-year-old gentleman, on RA comfortable in no apparent distress. HEAD: Normocephalic. EYES: Normal reaction of pupils, equal size. NOSE: Clear with pink turbinates. THROAT: No erythema or exudates. NECK: No masses, no JVD. CHEST: No chest wall deformity. LUNGS: Equal air entry with few scattered rhonchi, basilar crackles. CVS: S1 and S2 normal with no audible murmur, regular rhythm. ABDOMEN: No hepatosplenomegaly, normal bowel sounds, no guarding or rigidity. SPINE: No scoliosis or deformity SKIN: No rashes CENTRAL NERVOUS SYSTEM: No focal deficits, tone is normal in all 4 extremities. EXTREMITIES: There is no peripheral edema. No clubbing, no cyanosis. Peripheral pulses are intact. Results - Laboratory Findings CBC and BMP: 11/08/22 09:19 11/08/22 09:19 PT/INR, D-dimer PT 10.6 sec (9.0-12.0) 11/08/22 09:19 INR 1.0 (<1.2) 11/08/22 09:19 Abnormal lab findings: Abnormal Labs 11/08/22 11/08/22 09:19 09:19 WBC 31.6 H Sodium 134 L Potassium 3.4 L Chloride 97 L Carbon Dioxide 34 H Calcium 8.1 L Magnesium 1.5 L Total Protein 5.7 L Albumin 3.3 L - Diagnostic Findings Chest x-ray: image reviewed Assessment and Plan Plan: Acute exacerbation of chronic obstructive pulmonary disease, suspected left lower lobe pneumonia Chronic COPD with an FEV1 of 77% predicted at baseline CLL with ongoing issues with leukocytosis and lymphocytosis Hypertension Hyperlipidemia Previous episodes of pneumonia History of smoking Plan This is a readmission for a another COPD exacerbation. The chest x-ray shows no evidence of any acute pulmonary infiltrates. CT angiogram that was done during his last hospitalization of 10/18/2022 showed no evidence of any pulmonary embolism. Nonspecific mediastinal lymphadenopathy related to CLL. Questionable infiltrate in the anterior lateral segment of the left lower lobe. Patient will be optimized and will make some modification as maintenance respiratory medications and inhalers at time of his discharge. He is currently on room air oxygen. Outpatient medications will be resumed. On a separate note, due to recurrent nature of this ongoing problem, recommend a bronchoscopy and a bronchial lavage for microbial diagnosis. I'm going to ask Dr. Osorio to evaluate and proceed with this procedure early next week.
[2022-11-08] MEDS: methylPREDNISolone SOD SUCCI 125 MG/2 ML VIAL IV SCH ×2 (18:33→23:21)
[2022-11-09] MEDS: methylPREDNISolone SOD SUCCI 125 MG/2 ML VIAL IV SCH ×4 (06:27→23:20)
[2022-11-09 07:06] LABS: HCT 42.3 % (39.0-53.0); HGB 13.9 gm/dL (13.0-17.5); MCHC 32.9 g/dL (31.0-37.0); MCV 94.1 fL (80.0-100.0); Mean Platelet Volume 7.6; Platelet Count 169 k/uL (150-450); RDW 13.3 % (11.5-15.5); WBC 21.9 k/uL (3.8-10.6)
[2022-11-09 07:15] LABS: African American GFR (CKD) >90 (>60 ml/min/1.73 sqM); Anion Gap 7 mmol/L; Blood Urea Nitrogen 18 mg/dL (9-20); Carbon Dioxide 31 mmol/L (22-30); Chloride 100 mmol/L (98-107); Glucose 151 mg/dL (74-99); Magnesium 1.8 mg/dL (1.6-2.3); Non-African American GFR(CKD) >90 (>60 ml/min/1.73 sqM); Potassium 4.1 mmol/L (3.5-5.1); Sodium 138 mmol/L (137-145)
[2022-11-09] MEDS: FINASTERIDE 1 MG PO SCH (08:24)
[2022-11-09] MEDS: ATORVASTATIN 80 MG TAB PO SCH (08:26)
[2022-11-09] MEDS: LOSARTAN 50 MG TAB PO SCH (08:26)
[2022-11-09] MEDS: PANTOPRAZOLE 40 MG TABLET PO SCH (08:26)
[2022-11-09] MEDS: DOXAZOSIN 4 MG TAB PO SCH (08:26)
[2022-11-09] MEDS: AZITHROMYCIN 500 MG in SODIUM CHLORIDE 0.9% 250 ML IVPB SCH (08:27)
[2022-11-09] MEDS: IPRATROPIUM-ALBUTEROL 3 ML NEB INHALATION SCH ×4 (08:50→19:52)
[2022-11-09] MEDS: SYMBICORT 160-4.5 MCG INHALER INHALATION SCH ×2 (08:50→19:53)
[2022-11-09 08:56] LABS: Lymphocytes # (M) 8.54 k/uL (1.0-4.8); Monocytes # (M) 0.44 k/uL (0-1.0); Neutrophils # (M) 12.92 k/uL (1.3-7.7); Neutrophils % (M) 59 %; Nucleated Red Blood Cells 0 /100 WBC (0-0); Total Cells Counted 100
[2022-11-09 09:01] LABS: Poikilocytosis (M) Present
--- NOTE | 2022-11-09 09:42 | P.PN ---
Subjective Progress Note Date: 11/09/22 Patient reports breathing is improved today. Still having difficulty with breathing on exertion. Still feels his chest is tight. Denies further fevers, chills Gen: awake, alert HEENT: normocephalic, atraumatic, good hearing acuity, moist mucous membranes Resp: breathing comfortably with no accessory muscle use, expiratory wheezing bilaterally, diminished air exchange CVS: good distal perfusion x 4, regular rate and rhythm without murmurs GI: soft, NTTP, ND : no SPT, no CVAT, clements catheter not present MSK: Bilateral pitting edema, no clubbing Neuro: non-focal, moving all extremities Psych: cooperative, euthymic mood Hospital course: 67-year-old man with medical history of CLL, COPD, hypertension, hyperlipidemia, BPH presented to the emergency room with dyspnea. In the emergency room, p stephanie was afebrile, 150/80, heart rate 110, 93% on room air. CBC showed leukocytosis of 31.6. Basic metabolic panel showed sodium of 134, potassium 3.4, chloride 97, carbon dioxide of 34. Magnesium was 1.5. Liver function test showed low total protein 5.7, albumin 3.3. Troponin is 0.013. BNP was 753. EKG showed normal sinus rhythm with right axis deviation, no evidence of ischemia. Chest x-ray showed hyperinflated lungs with flattening of the diaphragm, increased opacities in the right and the left lung, but appears overall improved from prior done in October. Case was discussed with the emergency room physician and decision was made to admit the patient to the hospital for COPD exacerbation as well as possible pneumonia. Assessment: COPD exacerbation Leukocytosis Hypertension Hyperlipidemia CLL BPH Plan: Today, patient is afebrile, 167/92, heart rate 80, 95% on room air Leukocytosis of 21.9 CO2 is 31 Influenza A, B, RSV, Covid are negative Legionella is negative Pro-calcitonin is 0.2 DuoNeb's every 6 hours Solu-Medrol 60 mg IV every 6 hours Consultation to pulmonology Continue azithromycin 500 mg daily, discontinue ceftriaxone Patient is full code Objective - Vital Signs Vital signs: Vital Signs Temp 97.8 F 11/09/22 07:45 Pulse 96 11/09/22 09:01 Resp 15 11/09/22 07:45 BP 167/92 11/09/22 07:45 Pulse Ox 95 11/09/22 08:54 FiO2 21 11/09/22 08:54 Intake & Output 11/08/22 11/09/22 11/09/22 18:59 06:59 18:59 Weight 77.111 kg - Labs CBC & Chem 7: 11/09/22 06:22 11/09/22 06:22 Labs: Abnormal Lab Results - Last 24 Hours (Table) 11/08/22 11/08/22 11/08/22 Range/Units 09:19 09:19 12:28 WBC 31.6 H (3.8-10.6) k/uL Neutrophils # (Manual) 18.33 H (1.3-7.7) k/uL Lymphocytes # (Manual) 12.32 H (1.0-4.8) k/uL Sodium 134 L (137-145) mmol/L Potassium 3.4 L (3.5-5.1) mmol/L Chloride 97 L (98-107) mmol/L Carbon Dioxide 34 H (22-30) mmol/L Creatinine (0.66-1.25) mg/dL Glucose (74-99) mg/dL Calcium 8.1 L (8.4-10.2) mg/dL Magnesium 1.5 L (1.6-2.3) mg/dL Total Protein 5.7 L (6.3-8.2) g/dL Albumin 3.3 L (3.5-5.0) g/dL Procalcitonin 0.20 H ng/mL 11/09/22 11/09/22 Range/Units 06:22 06:22 WBC 21.9 H (3.8-10.6) k/uL Neutrophils # (Manual) 12.92 H (1.3-7.7) k/uL Lymphocytes # (Manual) 8.54 H (1.0-4.8) k/uL Sodium (137-145) mmol/L Potassium (3.5-5.1) mmol/L Chloride (98-107) mmol/L Carbon Dioxide 31 H (22-30) mmol/L Creatinine 0.63 L (0.66-1.25) mg/dL Glucose 151 H (74-99) mg/dL Calcium 8.0 L (8.4-10.2) mg/dL Magnesium (1.6-2.3) mg/dL Total Protein (6.3-8.2) g/dL Albumin (3.5-5.0) g/dL Procalcitonin ng/mL
--- NOTE | 2022-11-09 12:37 | P.PN ---
Subjective Progress Note Date: 11/09/22 67-year-old male patient with known history of COPD was recently hospitalized in October 2021 for shortness of breath and COPD exacerbation. The patient is also known to have chronic lymphocytic leukemia. Patient was treated successfully during his earlier hospitalization and the patient was discharged home on 10/19/2022 and the patient was offered a Zithromax and a course of prednisone burst taper which she completed. He is maintained on Advair discus 500/50 one puff twice a day but the rescue inhaler mastery basis. He came into the emergency department again for worsening shortness of breath. He reported increased mucus production. He also reports having some fever and chills. No change in mental status. No chest pain. No angina or palpitations. White cell count is obviously elevated at 31.6 with lymphocytosis. Electrolytes are normal. Magnesium level is at 1.5. LFTs are normal. Troponin was at 0.013 and a proBNP level was 753. EKG showed normal sinus rhythm without evidence of any ischemia. Chest x-ray showed hyperinflation consistent with COPD. Noted the patient had a CAT scan of the chest that was done during his last admission on 10/18/2022 and it showed some unspecific mediastinal lymphadenopathy largest in the subcarinal area measuring 1.7 cm and another one in the left hilar measuring 8 mm in size in the right hilum measuring 9 mm in size. The ascending aorta was measuring 3.4 cm. There was a heterogeneous large mass in the posterior right liver suspicious for hemangioma. There was no evidence of any pulmonary embolism. Limited areas of pneumonitis in the left anterior lateral and posterior segment was seen. Patient is currently on room air oxygen with a pulse ox of 93%. The patient is seen today 11/09/2022 in follow-up on the regular medical floor. He is currently sitting up in a chair at the bedside. Awake and alert in no acute distress. Maintaining good O2 saturations in the 90s on room air. He is still somewhat bronchospastic and wheezing. He is continued on DuoNeb inhalations, Symbicort, IV Solu-Medrol. Antibiotics in the form of a zithromycin. Pro-calcitonin 0.20. White count 21.9. Hemoglobin 13.9. Sodium 138. Potassium 4.1. Bicarb 31. BUN 18. Creatinine 0.63. Influenza screen negative. Urine legionella antigen screen negative. RSV negative. COVID-19 screen negative. Objective - Vital Signs Vital signs: Vital Signs Temp 97.8 F 11/09/22 07:45 Pulse 88 11/09/22 11:39 Resp 15 11/09/22 07:45 BP 167/92 11/09/22 07:45 Pulse Ox 95 11/09/22 08:54 FiO2 21 11/09/22 08:54 Intake & Output 11/08/22 11/09/22 11/09/22 18:59 06:59 18:59 Weight 77.111 kg - Exam GENERAL EXAM: Alert, pleasant 67-year-old male, on room air, fairly comfortable in no apparent distress. HEAD: Normocephalic. EYES: Normal reaction of pupils, equal size. NOSE: Clear with pink turbinates. THROAT: No erythema or exudates. NECK: No masses, no JVD. CHEST: No chest wall deformity. LUNGS: Equal air entry with bilateral end expiratory wheeze, diminished. CVS: S1 and S2 normal with no audible murmur, regular rhythm. ABDOMEN: No hepatosplenomegaly, normal bowel sounds, no guarding or rigidity. SPINE: No scoliosis or deformity SKIN: No rashes CENTRAL NERVOUS SYSTEM: No focal deficits, tone is normal in all 4 extremities. EXTREMITIES: There is no peripheral edema. No clubbing, no cyanosis. Peripheral pulses are intact. - Labs CBC & Chem 7: 11/09/22 06:22 11/09/22 06:22 Labs: Abnormal Lab Results - Last 24 Hours (Table) 11/08/22 11/08/22 11/09/22 Range/Units 09:19 12:28 06:22 WBC 21.9 H (3.8-10.6) k/uL Neutrophils # (Manual) 18.33 H 12.92 H (1.3-7.7) k/uL Lymphocytes # (Manual) 12.32 H 8.54 H (1.0-4.8) k/uL Carbon Dioxide (22-30) mmol/L Creatinine (0.66-1.25) mg/dL Glucose (74-99) mg/dL Calcium (8.4-10.2) mg/dL Procalcitonin 0.20 H ng/mL 11/09/22 Range/Units 06:22 WBC (3.8-10.6) k/uL Neutrophils # (Manual) (1.3-7.7) k/uL Lymphocytes # (Manual) (1.0-4.8) k/uL Carbon Dioxide 31 H (22-30) mmol/L Creatinine 0.63 L (0.66-1.25) mg/dL Glucose 151 H (74-99) mg/dL Calcium 8.0 L (8.4-10.2) mg/dL Procalcitonin ng/mL Assessment and Plan Assessment: Acute exacerbation of chronic obstructive pulmonary disease, suspected left lower lobe pneumonia Chronic COPD with an FEV1 of 77% predicted at baseline CLL with ongoing issues with leukocytosis and lymphocytosis Hypertension Hyperlipidemia Previous episodes of pneumonia History of smoking Plan: The patient was seen and evaluated Medications and labs reviewed Improved but not quite back to baseline Continue the current treatment plan We will continue to follow I have personally seen and examined the patient, performed the documentation and the assessment and plan as written. Number of minutes spent on the visit: 10.
[2022-11-10 02:12] VITALS: RESP 15; TEMP 97.7
[2022-11-10] MEDS: methylPREDNISolone SOD SUCCI 125 MG/2 ML VIAL IV SCH ×2 (06:29→12:19)
[2022-11-10] MEDS: FINASTERIDE 1 MG PO SCH (07:47)
[2022-11-10 09:25] VITALS: BP 127/78
[2022-11-10] MEDS: LOSARTAN 50 MG TAB PO SCH (09:26)
[2022-11-10] MEDS: ATORVASTATIN 80 MG TAB PO SCH (09:26)
[2022-11-10] MEDS: DOXAZOSIN 4 MG TAB PO SCH (09:26)
[2022-11-10] MEDS: AZITHROMYCIN 500 MG in SODIUM CHLORIDE 0.9% 250 ML IVPB SCH (09:26)
[2022-11-10] MEDS: PANTOPRAZOLE 40 MG TABLET PO SCH (09:27)
[2022-11-10] MEDS: IPRATROPIUM-ALBUTEROL 3 ML NEB INHALATION SCH (09:43)
[2022-11-10] MEDS: SYMBICORT 160-4.5 MCG INHALER INHALATION SCH (09:43)
[2022-11-10 11:22] VITALS: PULSE 98
--- NOTE | 2022-11-10 13:02 | P.PN ---
Subjective Progress Note Date: 11/10/22 67-year-old male patient with known history of COPD was recently hospitalized in October 2021 for shortness of breath and COPD exacerbation. The patient is also known to have chronic lymphocytic leukemia. Patient was treated successfully during his earlier hospitalization and the patient was discharged home on 10/19/2022 and the patient was offered a Zithromax and a course of prednisone burst taper which she completed. He is maintained on Advair discus 500/50 one puff twice a day but the rescue inhaler mastery basis. He came into the emergency department again for worsening shortness of breath. He reported increased mucus production. He also reports having some fever and chills. No change in mental status. No chest pain. No angina or palpitations. White cell count is obviously elevated at 31.6 with lymphocytosis. Electrolytes are normal. Magnesium level is at 1.5. LFTs are normal. Troponin was at 0.013 and a proBNP level was 753. EKG showed normal sinus rhythm without evidence of any ischemia. Chest x-ray showed hyperinflation consistent with COPD. Noted the patient had a CAT scan of the chest that was done during his last admission on 10/18/2022 and it showed some unspecific mediastinal lymphadenopathy largest in the subcarinal area measuring 1.7 cm and another one in the left hilar measuring 8 mm in size in the right hilum measuring 9 mm in size. The ascending aorta was measuring 3.4 cm. There was a heterogeneous large mass in the posterior right liver suspicious for hemangioma. There was no evidence of any pulmonary embolism. Limited areas of pneumonitis in the left anterior lateral and posterior segment was seen. Patient is currently on room air oxygen with a pulse ox of 93%. The patient is seen today 11/09/2022 in follow-up on the regular medical floor. He is currently sitting up in a chair at the bedside. Awake and alert in no acute distress. Maintaining good O2 saturations in the 90s on room air. He is still somewhat bronchospastic and wheezing. He is continued on DuoNeb inhalations, Symbicort, IV Solu-Medrol. Antibiotics in the form of a zithromycin. Pro-calcitonin 0.20. White count 21.9. Hemoglobin 13.9. Sodium 138. Potassium 4.1. Bicarb 31. BUN 18. Creatinine 0.63. Influenza screen negative. Urine legionella antigen screen negative. RSV negative. COVID-19 screen negative. The patient is seen today 11/10/2022 in follow-up on the regular medical floor. He is awake and alert in no acute distress. Sitting up in bed. Maintaining good O2 saturations in the mid 90s on room air with exercise as well. He is continued on DuoNeb inhalations, Symbicort, IV solu Medrol. Objective - Vital Signs Vital signs: Vital Signs Temp 97.7 F 11/10/22 08:00 Pulse 98 11/10/22 11:19 Resp 15 11/10/22 08:00 BP 127/78 11/10/22 09:25 Pulse Ox 97 11/10/22 11:19 FiO2 21 11/09/22 08:54 Intake & Output 11/09/22 11/10/22 11/10/22 18:59 06:59 18:59 Intake Total 250 500 Balance 250 500 Intake: Intake, IV Titration 250 Amount Azithromycin 500 mg In 250 Sodium Chloride 0.9% 250 ml @ 250 mls/hr IVPB DAILY [facility] Rx#:[id number] Oral 500 Other: Voiding Method Toilet # Voids 3 - Exam GENERAL EXAM: Alert, pleasant 67-year-old male, sitting up at the bedside, on room air, fairly comfortable in no apparent distress. HEAD: Normocephalic. EYES: Normal reaction of pupils, equal size. NOSE: Clear with pink turbinates. THROAT: No erythema or exudates. NECK: No masses, no JVD. CHEST: No chest wall deformity. LUNGS: Equal air entry with bilateral end expiratory wheeze, diminished. CVS: S1 and S2 normal with no audible murmur, regular rhythm. ABDOMEN: No hepatosplenomegaly, normal bowel sounds, no guarding or rigidity. SPINE: No scoliosis or deformity SKIN: No rashes CENTRAL NERVOUS SYSTEM: No focal deficits, tone is normal in all 4 extremities. EXTREMITIES: There is no peripheral edema. No clubbing, no cyanosis. Peripheral pulses are intact. - Labs CBC & Chem 7: 11/09/22 06:22 11/09/22 06:22 Labs: Microbiology - Last 24 Hours (Table) 11/08/22 09:30 Blood Culture - Preliminary Blood 11/08/22 09:15 Blood Culture - Preliminary Blood Assessment and Plan Assessment: Acute exacerbation of chronic obstructive pulmonary disease, chest x-ray revealed no acute process. Pro-calcitonin 0.20 and completed azithromycin Chronic COPD with an FEV1 of 77% predicted at baseline CLL with ongoing issues with leukocytosis and lymphocytosis Hypertension Hyperlipidemia Previous episodes of pneumonia History of smoking Plan: The patient was seen and evaluated Medications reviewed Stable for discharge from the pulmonary standpoint Complete a course of antibiotics Complete a course of prednisone taper Continue his home pulmonary medications Did not qualify for home oxygen Follow-up in the office in 1 week I have personally seen and examined the patient, performed the documentation and the assessment and plan as written. Number of minutes spent on the visit: 10.
--- NOTE | 2022-11-10 13:27 | P.DS ---
Providers Date of admission: 11/08/22 10:40 Expected date of discharge: 11/10/22 Attending physician: James Dubois MD Consults: 11/08/22 10:40 Consult Physician Routine Consulting Provider: Gely Dumont Consult Reason/Comments: COPD Do you want consulting provider notified?: Yes Primary care physician: [facility] Course: 67-year-old man with medical history of CLL, COPD, hypertension, hyperlipidemia, BPH presented to the emergency room with dyspnea. In the emergency room, patient was afebrile, 150/80, heart rate 110, 93% on room air. CBC showed le ukocytosis of 31.6. Basic metabolic panel showed sodium of 134, potassium 3.4, chloride 97, carbon dioxide of 34. Magnesium was 1.5. Liver function test showed low total protein 5.7, albumin 3.3. Troponin was 0.013. BNP was 753. EKG showed normal sinus rhythm with right axis deviation, no evidence of ischemia. Chest x-ray showed hyperinflated lungs with flattening of the diaphragm, increased opacities in the right and the left lung, but appears overall improved from prior done in October. Case was discussed with the emergency room physician and decision was made to admit the patient to the hospital for COPD exacerbation as well as possible pneumonia. Patient was started on Rocephin and azithromycin. Procalcitonin came back at 0.2 and Rocephin was discontinued. He completed 2 days of azithromycin duing his hospitalization. He was started on bronchodilators, SoluMedrol and Pulmonology was consulted. His breathing progressively improved. Patient was seen and examined. No acute events overnight. Patient reports feeling back to baseline. States that he is 90% better. He passed his home O2 eval. Comfortable being discharged home today. Patient was discharged home with 3 more days of prednisone by mouth. Advised to follow-up with his PCP within 1-2 days. Advised to follow-up with pulmonology on 12/03. Pertinent studies include chest x-ray. General: non toxic, no distress, appears at stated age Derm: warm, dry Head: atraumatic, normocephalic, symmetric Eyes: EOMI, no lid lag, anicteric sclera Cardiovascular: S1S2 reg, no murmur Lungs: CTA bilateral, no rhonchi, no rales , no accessory muscle use Ext: no gross muscle atrophy, no contractures Neuro: no focal neuro deficits Psych: Alert, oriented, appropriate affect Discharge diagnosis: COPD exacerbation Leukocytosis Hypertension Hyperlipidemia CLL BPH This complex discharge took 35 minutes to complete. Patient Condition at Discharge: Stable Plan - Discharge Summary Discharge Rx Participant: No New Discharge Prescriptions: New Furosemide [Lasix] 20 mg PO DAILY #7 tab predniSONE 50 mg PO DAILY #3 tab Continue Pantoprazole Sodium [Protonix] 40 mg PO DAILY Albuterol Nebulized [Ventolin Nebulized] 2.5 mg INHALATION RT-Q6H PRN PRN Reason: Shortness Of Breath Fluticasone Propion/Salmeterol [Advair 500-50 Diskus] 1 puff INHALATION RT- BID Albuterol Sulfate [Ventolin HFA] 2 puff INHALATION RT-Q4H PRN #1 inhaler PRN Reason: Shortness Of Breath Atorvastatin [Lipitor] 80 mg PO DAILY Doxazosin [Cardura] 4 mg PO DAILY Losartan Potassium 100 mg PO DAILY Doxycycline Hyclate 100 mg PO Q12H 7 Days #14 tab Finasteride 1 mg PO DAILY Tiotropium 2.5 Mcg/Puff [Spiriva Respimat 2.5 Mcg] 2 puff INHALATION RT-DAILY Discharge Medication List Albuterol Nebulized [Ventolin Nebulized] 2.5 mg INHALATION RT-Q6H PRN 01/05/20 [History] Fluticasone Propion/Salmeterol [Advair 500-50 Diskus] 1 puff INHALATION RT-BID 01/05/20 [History] Pantoprazole Sodium [Protonix] 40 mg PO DAILY 01/05/20 [History] Albuterol Sulfate [Ventolin HFA] 2 puff INHALATION RT-Q4H PRN #1 inhaler 01/08/20 [Rx] Atorvastatin [Lipitor] 80 mg PO DAILY 10/18/22 [History] Doxazosin [Cardura] 4 mg PO DAILY 10/18/22 [History] Finasteride 1 mg PO DAILY 10/18/22 [History] Losartan Potassium 100 mg PO DAILY 10/18/22 [History] Doxycycline Hyclate 100 mg PO Q12H 7 Days #14 tab 11/01/22 [Rx] Tiotropium 2.5 Mcg/Puff [Spiriva Respimat 2.5 Mcg] 2 puff INHALATION RT-DAILY 11/08/22 [History] Furosemide [Lasix] 20 mg PO DAILY #7 tab 11/10/22 [Rx] predniSONE 50 mg PO DAILY #3 tab 11/10/22 [Rx] Follow up Appointment(s)/Referral(s): Khoi Alejo DO [Primary Care Provider] - 1-2 days (The office is closed for lunch please call and make follow up.) Gely Dumont MD [STAFF PHYSICIAN] - 12/03/22 9:15 am (This is the earliest this can get you in.) Patient Instructions/Handouts: Furosemide (By mouth), Prednisone (By mouth), COPD (Chronic Obstructive Pulmonary Disease) (DC) Discharge Disposition: HOME SELF-CARE
== END 2022-11-10 13:01 | disposition home or self-care (01) | DRG 190 ==
LOC: EC 08:51 → 5NMEDONC 10:40
PROVIDERS: ADMIT Internal Medicine; ATTEND Internal Medicine
DX: J44.1 Chronic obstructive pulmonary disease with (acute) exacerbation (principal); J18.9 Pneumonia, unspecified organism; C91.10 Chronic lymphocytic leukemia of B-cell type not having achieved remission; J44.0 Chronic obstructive pulmonary disease with (acute) lower respiratory infection; I10 Essential (primary) hypertension; E78.5 Hyperlipidemia, unspecified; D18.09 Hemangioma of other sites; N40.0 Benign prostatic hyperplasia without lower urinary tract symptoms; R59.0 Localized enlarged lymph nodes; R60.0 Localized edema; R06.03 Acute respiratory distress; Z20.822 Contact with and (suspected) exposure to COVID-19; Z87.01 Personal history of pneumonia (recurrent); Z79.51 Long term (current) use of inhaled steroids; Z87.891 Personal history of nicotine dependence; Z79.899 Other long term (current) drug therapy; Z88.6 Allergy status to analgesic agent; Z88.0 Allergy status to penicillin
CPT/HCPCS: 36415; 71046; 80048; 80053; 83605; 83735; 83880; 84145; 84484; 85025; 85610; 85730; 87040; 87449; 87636; 93005; 94640; 94760; 96365; 96366; 96367; 96375; 99285

== ENCOUNTER → 2023-06-16 | Outpatient (CLI) | payer MEDICARE ==
--- NOTE | 2023-06-20 20:50 | MR ---
EXAMINATION TYPE: MR brain wo/w con DATE OF EXAM: 06/16/2023 COMPARISON: NONE HISTORY: 67-year-old male Memory loss, Tremors, Hx of cancer per pt. I10,R25.1 TREMOR, UNSPECIFIED C 91.10 TECHNIQUE: Multiplanar, multisequence images of the brain and brainstem were acquired before and aft er administration of 7.5 mL IV Gadavist. Diffusion weighted imaging is performed. FINDINGS: No evidence for acute infarction, hemorrhage, mass, mass effect, midline shift, herniation, effacemen t of basal cisterns, or extra-axial fluid collection. Mild ventricular prominence likely central to right atrophy. Additional mild volume loss along the bi lateral cerebral convexities. Major intracranial flow voids are intact. T2/FLAIR weighted sequences show minimal punctate bright signal change in the subcortical region of b oth cerebral hemispheres numbering less than 5 on each side, likely minimal burden of chronic small v essel ischemic disease. Midline structures demonstrate normal morphology. The craniocervical junction is normal. Post contrast images demonstrate no evidence of pathologic enhancement. Dural venous sinuses are pat ent. Scattered moderate mucosal thickening throughout the paranasal sinuses. Additional opacification left mastoid air cells. IMPRESSION: 1. Mild generalized cerebral atrophy and minimal burden of chronic small vessel ischemic disease. No acute intracranial abnormality or enhancing intracranial lesions are seen. 2. Moderate chronic paranasal sinus disease. 3. Additional fluid within the left mastoid air cells. Correlate for any mastoid pain to exclude mast oiditis.
== END | disposition home or self-care (01) ==
LOC: RADMRIMAIN 08:50
PROVIDERS: ATTEND Family Medicine
DX: G31.9 Degenerative disease of nervous system, unspecified (principal); J34.89 Other specified disorders of nose and nasal sinuses; H74.8X2 Other specified disorders of left middle ear and mastoid; I67.82 Cerebral ischemia; C91.10 Chronic lymphocytic leukemia of B-cell type not having achieved remission; I10 Essential (primary) hypertension; R25.1 Tremor, unspecified
CPT/HCPCS: 70553; A9585

== ENCOUNTER → 2024-04-04 | Outpatient (CLI) | payer MEDICARE ==
--- NOTE | 2024-04-04 14:13 | US ---
EXAMINATION TYPE: US carotid duplex BILAT DATE OF EXAM: 04/04/2024 COMPARISON: NONE CLINICAL INDICATION: Male, 68 years old with history of R42 I35.0 R06.02 DIZZINESS AND GIDDINESS; Yehuda mors; Hx HTN, DM, former smoker x 5-10 years. TECHNIQUE: Grayscale, color Doppler and spectral Doppler evaluation of the bilateral carotid systems and vertebral arteries. Indirect Doppler criteria was utilized. FINDINGS: EXAM MEASUREMENTS: RIGHT: Peak Systolic Velocity (PSV) cm/sec ----- Right CCA: 90 ----- Right ICA: 67 ----- Right ECA: 82 ICA/CCA ratio: 0.8 RIGHT: End Diastole cm/sec ----- Right CCA: 15 ----- Right ICA: 22 ----- Right ECA: 12 LEFT: Peak Systolic Velocity (PSV) cm/sec ----- Left CCA: 98 ----- Left ICA: 78 ----- Left ECA: 98 ICA/CCA ratio: 1.0 LEFT: End Diastole cm/sec ----- Left CCA: 18 ----- Left ICA: 22 ----- Left ECA: 10 VERTEBRALS (direction of flow): Right Vertebral: Antegrade Left Vertebral: Antegrade Rhythm: Normal EMPLOYEE BENEFITS ADMINISTRATOR NOTES: Calcified plaque seen in bilateral CCA bulbs. No elevated velocities seen and no i ntimal thickening seen. IMPRESSION: No ultrasound evidence for hemodynamically significant stenosis of the bilateral visualized carotid a rterial systems. Criteria for Assigning % of Stenosis / Diameter reduction (Estimation based on the indirect measurements of the internal carotid artery velocities (ICA PSV). 1. Normal (no stenosis)=ICA PSV < 125 cm/s: ratio < 2.0: ICA EDV<40 cm/s. 2. Less than 50% stenosis=ICA PSV < 125 cm/s: ratio < 2.0: ICA EDV<40 cm/s. 3. 50 to 69% stenosis=ICA PSV of 125 to 230 cm/s: ration 2.0 ? 4.0: ICA EDV 40-100 cm/s. 4. Greater than 70% stenosis to near occlusion= ICA PSV > 230 cm/s: ratio > 4.0: ICA EDV > 100 cm/s. 5. Near occlusion= ICA PSV velocities may be low or undetectable: variable ratio and ICA EDV. 6. Total occlusion=unable to detect flow. [facility], , 04/04/2024 2:11 PM
--- NOTE | 2024-04-04 16:41 | CA ---
Transthoracic Echo Report Name: Carlos Mantilla Age: 68 Gender: M : 1955 Exam Date: 04/04/2024 13:00 Exam Location: [facility] Ht (in): 70 Wt (lb): 142 Ordering Physician: Patel Neff DO ([email or web address]) Attending/Referring Phys: Water Restoration Technician Tg Martinez RDCS Procedure CPT: Indications: R42 Dizziness Cardiac Hx: Technical Quality: Fair Contrast 1: Total Dose (mL): Contrast 2: Total Dose (mL): MEASUREMENTS (Male / Female) Normal Values 2D ECHO LV Diastolic Diameter PLAX 4.7 cm 4.2 - 5.9 / 3.9 - 5.3 cm LV Systolic Diameter PLAX 3.1 cm IVS Diastolic Thickness 0.6 cm 0.6 - 1.0 / 0.6 - 0.9 cm LVPW Diastolic Thickness 0.8 cm 0.6 - 1.0 / 0.6 - 0.9 cm LV Relative Wall Thickness 0.3 LVOT Diameter 2.2 cm LV Diastolic Volume MOD BP 84.6 cm??? 67 - 155 / 56 - 104 cm??? LV Systolic Volume MOD BP 33.3 cm??? 22 - 58 / 19 - 49 cm??? LV Ejection Fraction MOD BP 60.6 % >= 55 % LV Cardiac Index MOD BP 231.1 cm???/min???m??? LV Diastolic Volume MOD 4C 86.6 cm??? LV Systolic Volume MOD 4C 29.9 cm??? LV Ejection Fraction MOD 4C 65.5 % LV Cardiac Index MOD 4C 255.2 cm???/min???m??? LV Diastolic Length 4C 9.2 cm LV Systolic Length 4C 7.0 cm LV Diastolic Volume MOD 2C 77.8 cm??? LV Systolic Volume MOD 2C 36.4 cm??? LV Ejection Fraction MOD 2C 53.2 % LV Cardiac Index MOD 2C 186.3 cm???/min???m??? LV Diastolic Length 2C 8.5 cm LV Systolic Length 2C 7.2 cm LA Volume 37.0 cm??? 18 - 58 / 22 - 52 cm??? LA Volume Index 20.8 cm???/m??? 16 - 28 cm???/m??? DOPPLER AV Peak Velocity 294.5 cm/s AV Peak Gradient 34.7 mmHg AV Mean Velocity 213.3 cm/s AV Mean Gradient 19.9 mmHg AV Velocity Time Integral 59.3 cm LVOT Peak Velocity 90.2 cm/s LVOT Peak Gradient 3.3 mmHg LVOT Velocity Time Integral 18.7 cm LVOT Stroke Volume 69.6 cm??? LVOT Stroke Volume Index 38.6 ml/m??? LVOT Cardiac Index 313.2 cm???/min???m??? AV Area Cont Eq vti 1.2 cm??? AV Area Cont Eq pk 1.1 cm??? MV Area PHT 3.6 cm??? Mitral E Point Velocity 54.4 cm/s Mitral A Point Velocity 65.4 cm/s Mitral E to A Ratio 0.8 MV Deceleration Time 209.3 ms PV Peak Velocity 101.5 cm/s PV Peak Gradient 4.1 mmHg FINDINGS Left Ventricle Left ventricular ejection fraction is estimated at 60-65 %. Left ventricular cavity size normal. Left ventricular wall thickness normal. No obvious regional wall motion abnormalities. Right Ventricle Normal right ventricular size and function. Unable to estimate the right ventricular systolic pressure. Right Atrium Normal right atrial size. Left Atrium Normal left atrial size. Mitral Valve Structurally normal mitral valve. No mitral stenosis, regurgitation or prolapse. Aortic Valve Aortic valve not well visualized. [id number] aortic stenosis with a peak No aortic regurgitation. Tricuspid Valve Structurally normal tricuspid valve. No tricuspid stenosis. Trace tricuspid regurgitation. Pulmonic Valve Structurally normal pulmonic valve. No pulmonic stenosis. No pulmonic regurgitation. Pericardium No pericardial effusion. Aorta Aortic annulus normal. CONCLUSIONS Normal LV function Mild to moderate aortic stenosis Calcified aortic valve leaflets with restricted leaflet mobility Previewed by: Dr. Neto Yu MD (Electronically Signed) Final Date: 04 April 2024 16:40
== END | disposition home or self-care (01) ==
LOC: RADECHMAIN 12:47
PROVIDERS: ATTEND Internal Medicine
DX: R42 Dizziness and giddiness (principal); I35.0 Nonrheumatic aortic (valve) stenosis; I35.8 Other nonrheumatic aortic valve disorders; E11.9 Type 2 diabetes mellitus without complications; I10 Essential (primary) hypertension; R06.02 Shortness of breath; Z87.891 Personal history of nicotine dependence
CPT/HCPCS: 93306; 93880

== ENCOUNTER 2024-06-17 11:42 | Emergency (ER) | payer MEDICARE ==
--- NOTE | 2024-06-17 12:34 | ED ---
General Adult HPI - General Chief complaint: Cardiac Arrest/CPR Stated complaint: cardiac arrest Time Seen by Provider: 06/17/24 11:42 Source: patient, EMS, RN notes reviewed, old records reviewed Mode of arrival: EMS - History of Present Illness Initial comments: This is a 68-year-old male who presents to the emergency department with a past medical history significant for dementia and Parkinson's and COPD. EMS was initially called for altered mental status when they arrived the patient was oxygenating at 88% the got him into the ambulance and he they noted he had a fever of 101 and shortly thereafter he went into V-fib he was shocked 3 times given amiodarone 300 end another amiodarone of 150. Patient then went into asystole they started CPR intubated the patient and gave 5 rounds of epi prior to the patient arriving at the emergency department. Patient was in asystole the whole time. Patient arrived in asystole a pulse check was done patient remained in pulseless. - Related Data Home Medications Medication Instructions Recorded Confirmed Albuterol Nebulized [Ventolin 2.5 mg INHALATION RT-Q6H PRN 01/05/20 11/08/22 Nebulized] Fluticasone Propion/Salmeterol 1 puff INHALATION RT-BID 01/05/20 11/08/22 [Advair 500-50 Diskus] Pantoprazole Sodium [Protonix] 40 mg PO DAILY 01/05/20 11/08/22 Atorvastatin [Lipitor] 80 mg PO DAILY 10/18/22 11/08/22 Doxazosin [Cardura] 4 mg PO DAILY 10/18/22 11/08/22 Finasteride 1 mg PO DAILY 10/18/22 11/08/22 Losartan Potassium 100 mg PO DAILY 10/18/22 11/08/22 Tiotropium 2.5 Mcg/Puff [Spiriva 2 puff INHALATION RT-DAILY 11/08/22 11/08/22 Respimat 2.5 Mcg] Previous Rx's Medication Instructions Recorded Albuterol Sulfate [Ventolin HFA] 2 puff INHALATION RT-Q4H PRN #1 01/08/20 inhaler Doxycycline Hyclate 100 mg PO Q12H 7 Days #14 tab 11/01/22 Furosemide [Lasix] 20 mg PO DAILY #7 tab 11/10/22 predniSONE 50 mg PO DAILY #3 tab 11/10/22 Allergies Allergy/AdvReac Type Severity Reaction Status Date / Time naproxen Allergy Itching Verified 06/17/24 11:47 Penicillins Allergy Unknown Verified 06/17/24 11:47 Childhood Review of Systems ROS Statement: Those systems with pertinent positive or pertinent negative responses have been documented in the HPI. ROS Other: All systems not noted in ROS Statement are negative. Past Medical History Past Medical History: Cancer, COPD, GERD/Reflux, Hyperlipidemia, Hypertension, Musculoskeletal Disorder, Pneumonia Additional Past Medical History / Comment(s): Bronchitis, exacerbation of COPD w/pneumonia in fall of 2019, occasional lower back pain, dx. w/CLL in fall 2019- no current tx.-sees Dr. Ann, injury to right ring finger by a log splitter 01-14-21drsg. w/gauze History of Any Multi-Drug Resistant Organisms: None Reported Past Surgical History: Unable to Obtain Additional Past Surgical History / Comment(s): colonoscopy w/polypectomy Past Anesthesia/Blood Transfusion Reactions: No Reported Reaction Past Psychological History: Anxiety Smoking Status: Former smoker Past Alcohol Use History: None Reported Past Drug Use History: None Reported - Past Family History Father Family Medical History: Coronary Artery Disease (CAD) Additional Family Medical History / Comment(s): Father at the age of 74 yrs. Mother Family Medical History: Coronary Artery Disease (CAD) Additional Family Medical History / Comment(s): Mother had CABG. She in her 70s. General Exam - General Exam Comments Initial Comments: GENERAL: Patient is unresponsive ENT: Neck is soft and supple. EYES: Pupils are fixed and dilated PULMONARY: Breath sounds are diminished on the left side ET tube looks like it could be pulled back. CARDIOVASCULAR: Patient has no heartbeat ABDOMEN: No gross abnormalities SKIN: Skin is clear with no lesions or rashes and otherwise unremarkable. NEUROLOGIC: Patient is a GCS of 3 PSYCHIATRIC: Unable to assess Medical Decision Making - Medical Decision Making Was pt. sent in by a medical professional or institution (, PA, MEDIC[employer], urgent care, hospital, or fci...) When possible be specific @ -No Did you speak to anyone other than the patient for history (EMS, parent, family, police, friend...)? What history was obtained from this source @ -No Did you review nursing and triage notes (agree or disagree)? Why? @ -I reviewed and agree with nursing and triage notes Were old charts reviewed (outside hosp., previous admission, EMS record, old EKG, old radiological studies, urgent care reports/EKG's, fci records)? Report findings @ -No old charts were reviewed Differential Diagnosis? @ -Pulmonary embolism, cardiac heart attack, respiratory failure, this is not an all-inclusive list EKG interpreted by me (3pts min.). @ -As above X-rays interpreted by me (1pt min.). @ -None done CT interpreted by me (1pt min.). @ -None done U/S interpreted by me (1pt. min.). @ -None done What testing was considered but not performed or refused? (CT, X-rays, U/S, labs)? Why? @ -None What meds were considered but not given or refused? Why? @ -None Did you discuss the management of the patient with other professionals (professionals i.e. , PA, [employer], lab, RT, psych nurse, social research assistant, cabin agent, teacher, hotel security officer, counter caser)? Give summary @ -I spoke with the medical scientist and explained the case to the medical scientist. I spoke with family about the patient's past medical history and eventually inform them that the patient had passed Was smoking cessation discussed for >3mins.? @ -No Was critical care preformed (if so, how long)? @ -30 minutes Were there social determinants of health that impacted care today? How? (Homelessness, low income, unemployed, alcoholism, drug addiction, transportation, low edu. Level, literacy, decrease access to med. care, snf, rehab)? @ -No Was there de-escalation of care discussed even if they declined (Discuss DNR or withdrawal of care, Hospice)? DNR status @ -No What co-morbidities impacted this encounter? (DM, HTN, Smoking, COPD, CAD, Cancer, CVA, ARF, Chemo, Hep., AIDS, mental health diagnosis, sleep apnea, morbid obesity)? @ -None Was patient admitted / discharged? Hospital course, mention meds given and route, prescriptions, significant lab abnormalities, going to OR and other pertinent info. @ -Patient arrived pulseless and asystole. 3 epi were given and 2 sodium bicarb. CPR was continued throughout the patient's course in the ED patient was being bagged by the respiratory therapist. Patient arrived having been down for at least 20 minutes we ran the code in the ER for another 11 minutes or total downtime of 31 minutes and at that time the patient was pronounced at 11:51 AM Undiagnosed new problem with uncertain prognosis? @ -No Drug Therapy requiring intensive monitoring for toxicity (Heparin, Nitro, Insulin, Cardizem)? @ -No Were any procedures done? @ -No Diagnosis/symptom? @ -Cardiopulmonary arrest Acute, or Chronic, or Acute on Chronic? @ -Acute Uncomplicated (without systemic symptoms) or Complicated (systemic symptoms)? @ -Default Side effects of treatment? @ -No Exacerbation, Progression, or Severe Exacerbation? @ -No Poses a threat to life or bodily function? How? (Chest pain, [place], GA, pneumonia, PE, COPD, DKA, ARF, appy, cholecystitis, CVA, Diverticulitis, Homicidal, Suicidal, threat to staff... and all critical care pts) @ -Yes this did cause the patient's Disposition Clinical Impression: Cardiopulmonary arrest Disposition: Referrals: Khoi Alejo DO [Primary Care Provider] - 1-2 days Time of Disposition: 12:46 Preliminary Cause of : Cardiopulmonary arrest
== END 2024-06-17 14:45 | disposition expired ==
LOC: EC 11:42
DX: I46.9 Cardiac arrest, cause unspecified (principal); F02.80 Dementia in other diseases classified elsewhere, unspecified severity, without behavioral disturbance, psychotic disturbance, mood disturbance, and anxiety; G20.A1 Parkinson's disease without dyskinesia, without mention of fluctuations; J44.9 Chronic obstructive pulmonary disease, unspecified; Z87.891 Personal history of nicotine dependence; Z88.0 Allergy status to penicillin; Z88.6 Allergy status to analgesic agent
CPT/HCPCS: 92950; 99291